=== PATIENT | female | born 1995 | race Caucasian/White ===

== ENCOUNTER 2018-01-05 13:48 | Emergency (ER) | payer MEDICAID, SELFPAY ==
[2018-01-05 13:53] VITALS: BP 147/82; PULSE 107; RESP 18; TEMP 36.2; O2SAT 96; BMI 32.5
--- NOTE | 2018-01-05 14:05 | RAD_ITS ---
STUDY: X-RAY CHEST REASON FOR EXAM: Female, 22 years old. Cough. TECHNIQUE: Frontal and lateral views of the chest. COMPARISON: None. FINDINGS: The lungs are clear and expanded. There is no demonstrated pleural abnormality. Normal size heart. Normal mediastinum and aylin. Normal visualized pulmonary arteries. Normal visualized aortic arch and descending thoracic aorta. Meraz arpit placement is present. There are bilateral nipple rings. Normal visualized ribs, clavicles, and shoulders. There is no demonstrated abnormality of the visualized soft tissue structures of the upper abdomen. RAD/Chest PA and Lateral IMPRESSION: No active or acute cardiopulmonary disease. Electronically Signed: Rosendo Lundberg MD at 14:26 EDT , Service support ,
[2018-01-05] MEDS: Naproxen 500 MG Tablet PO (14:29)
[2018-01-05] MEDS: predniSONE 20 MG Tablet 60 MG PO (14:29)
--- NOTE | 2018-01-05 15:07 | ED.DCSUM_ITS ---
- ER Visit Summary Date of Service: 01/05/18 Chief Complaint: Cough History of Present Illness: The patient is a 22 F with no primary care physician. She reports she has a cough began approximately 2 weeks ago. Is nonproductive. No fever or chills. Reports that she has sore throat is 5 out of 10 severity. She has a chest pain with coughing only. She reports that she has had moderate shortness of breath and has been wheezing. She does not have an inhaler, but needed one when she was younger. She reports that she has had similar symptoms about this time every year. She does smoke half pack per day. Physical Examination: Vitals: Stable. Afebrile. General: Well-nourished and well-developed. Head: Normocephalic atraumatic. Neck: Supple, no lymphadenopathy. No JVD. Nontender. Cardiovascular: Regular rate and rhythm. No murmurs. Respiratory: No respiratory distress. Mild wheezing bilaterally with good air movement Abdominal: Soft, nontender, nondistended, normal bowel sounds. No guarding, rebound, or peritoneal signs. Back: Nontender. Extremities: Nontender, no edema. Skin: Normal color, no rash. Neurologic: Alert and oriented ?3. Cranial nerves II through XII are intact. Normal strength and sensation. Psych: Normal affect. Test Results: Chest x-ray is normal Emergency Department Course and Treatment: Patient was treated with naproxen p.o., prednisone p.o., and albuterol MDI. Repeat exam her wheezing is resolved and she feels much improved. Treatment Plan: Patient be discharged on a 5-day burst of prednisone. Instructed to push fluids. Follow-up with the [facility] in 1 week if not improving. Return to the emergency department for any worsening symptoms. Disposition: To home in improved and stable condition. Impression: 1. URI with bronchospasm. 2. Tobacco abuse. This note was generated with [employer] dictation software. It may contain incorrect words, spelling, and punctuation that were not noted in review of the chart prior to signing ED Disposition - Plan for ED Patient: Disposition: Home or Assisted Living Chief Complaint: Cough Instructions: ED Upper Resp Infec No Abx Tx Prescriptions: Prednisone [Deltasone] 40 mg PO DAILY #10 tablet Referrals: [facility] [NON-STAFF] - 1 Week if not improving
[2018-01-05 15:12] VITALS: BP 138/79; PULSE 84; RESP 16; O2SAT 98
--- NOTE | 2018-01-06 11:58 | CM.ED ---
ED CALLBACK: Follow-up call placed to patient. Patient states she is feeling some better. She states she has not filled her prescription yet, but plans to do so today. Patient states she usually gets bronchitis this time of year and if she doesn't treat it quickly it turns into pneumonia. I encouraged the patient to schedule an [facility]. Contact number and address provided, as patient states she can't locate her discharge paperwork. Patient denies further needs or questions at this time.
== END 2018-01-05 15:12 | disposition home or self-care (01) ==
LOC: ED 14:38
PROVIDERS: Emergency Provider Emergency Medicine
DX: J06.9 Acute upper respiratory infection, unspecified (principal); J98.01 Acute bronchospasm; F17.200 Nicotine dependence, unspecified, uncomplicated
CPT/HCPCS: 71046; 99283

== ENCOUNTER 2018-06-02 10:28 | Emergency (ER) | payer MEDICAID, SELFPAY ==
[2018-06-02 10:28] VITALS: BP 145/95; PULSE 103; RESP 18; TEMP 36.3; O2SAT 98; BMI 34.3
--- NOTE | 2018-06-02 11:26 | CT_ITS ---
STUDY: CT BRAIN WITHOUT CONTRAST REASON FOR EXAM: Female, 22 years old. alvarado x 2 wks, d/v, pt refused to remove rt ear piercing RADIATION DOSAGE (If Supplied By Facility): CTDIvol = ( 44.99 ) mGy, DLP = ( 762.36 ) mGycm TECHNIQUE: Transaxial CT imaging of the brain was performed without administration of intravenous contrast material. Individualized dose optimization techniques were used for this CT. COMPARISON: None. FINDINGS: Normal soft tissue structures. Normal calvarium. Normal size ventricles and extra-axial spaces for the patient's age. Normal white matter tracts of the cerebral hemispheres. Normal basal ganglia and thalami. Normal brainstem. Normal cerebellum. There is no intracranial hemorrhage. There are no findings of an acute ischemic infarction. Normal visualized paranasal sinuses. CT/Brain/Head without Contrast IMPRESSION: Normal unenhanced CT scan of the brain. Electronically Signed: Rosanna Robles, at 12:14 EDT Tel , Service support ,
[2018-06-02 11:53] VITALS: BP 134/93; PULSE 78; RESP 16; O2SAT 96
[2018-06-02] MEDS: Ketorolac 30 MG/ML Syringe IV (12:02)
[2018-06-02] MEDS: 0.9% Normal Saline 1,000 ML 999 ML IV (12:02)
[2018-06-02] MEDS: diazePAM 5 MG Tablet PO (12:03)
[2018-06-02 13:19] VITALS: BP 132/87; PULSE 76; RESP 16; O2SAT 98
--- NOTE | 2018-06-02 13:29 | ED.VISSUMM ---
- ER Visit Summary Date of Service: 06/02/18 Chief Complaint: Headache History of Present Illness: The patient is a 22 F who presents emergency department 2 weeks of a headache. Described as pain behind her bilateral eyes and also in her occiput. She also feels that there is a splitting sensation in the center of her head. No weakness or paresthesias. She states that last she began to have vomiting and diarrhea and on Saturday had a temperature of 101. She was seen at [facility] emergency room where she C received a bag of fluids and was felt that it could be a sinusitis headache. She was prescribed amoxicillin but has not taken it. Patient notes the vomiting diarrhea has continued but she states that she can handle that is her head that is hurting her. She does note some light sensitivity. No significant history of migraines. No significant vision changes. Physical Examination: Afebrile vital signs stable Gen: Well-nourished well-developed Head: Normocephalic atraumatic Eyes: Perrl EOMI ENT: TMs clear no rhinorrhea moist mucous membranes Neck: Supple no lymphadenopathy no JVD nontender CVS: Regular rate rhythm no murmurs normal S1-S2 Respiratory: No distress clear to auscultation bilaterally chest nontender Abdomen: Soft nontender nondistended normal bowel sounds no masses Back: Nontender Extremity: Nontender no edema Skin: Normal color no rash Neuro: alert orientated ?3 CN II-XII intact normal strength sensation reflexes gait cerebellar Psych: Normal affect normal mood Test Results: CT brain negative for acute Emergency Department Course and Treatment: Patient received Toradol Valium and IV fluids. She states her headache is at least 40% better. I am going to prescribe additional Toradol and Valium as well as some prednisone she is to establish primary care or follow-up with neurology. Return if worsening or concerns. Impression: Headache This note was generated with [employer] dictation software. It may contain incorrect words, spelling, and punctuation that were not noted in review of the chart prior to signing ED Disposition - Plan for ED Patient: Disposition: Home or Assisted Living Instructions: ED Cephalgia Unspecified Prescriptions: Diazepam [Valium] 5 mg PO Q8 PRN #10 tab PRN Reason: tension headache Prednisone [Deltasone] 40 mg PO DAILY #8 tab Ketorolac [Toradol] 10 mg PO Q6H PRN #20 tab PRN Reason: Pain Referrals: Micheal Rios MD [STAFF PHYSICIAN] - 3-5 Days if not improving
[2018-06-02 13:44] VITALS: BP 125/86; PULSE 68; RESP 16; O2SAT 99
== END 2018-06-02 13:45 | disposition home or self-care (01) ==
PROVIDERS: Emergency Provider Emergency Medicine
DX: R51 Headache (principal); Z72.0 Tobacco use
CPT/HCPCS: 70450; 96361; 96374; 99283; J7030; A4216

== ENCOUNTER 2018-07-12 01:52 | Emergency (ER) | payer MEDICAID, SELFPAY ==
[2018-07-12 01:52] VITALS: BP 135/88; PULSE 105; RESP 16; TEMP 36.4; O2SAT 98; BMI 35.4
--- NOTE | 2018-07-12 02:02 | RAD_ITS ---
STUDY: X-RAY CHEST REASON FOR EXAM: Female, 22 years old. Cough TECHNIQUE: Single frontal view of the chest. COMPARISON: January 05, 2018. FINDINGS: The lungs are clear and expanded. There is no demonstrated pleural abnormality. Normal size heart. Normal mediastinum and aylin. Normal visualized pulmonary arteries. Normal visualized aortic arch and descending thoracic aorta. Scoliotic curvature to the spine with spinal fixation rods. Normal visualized ribs, clavicles, and shoulders. There is no demonstrated abnormality of the visualized soft tissue structures of the upper abdomen. RAD/Chest 1 View (Portable) IMPRESSION: No acute cardiopulmonary disease identified. Electronically Signed: Maged Gonsalez, at 2:40 EDT Tel , Service support ,
[2018-07-12] MEDS: Mag Hydrox/Al Hydrox/Simeth 30 ML UDC PO (02:12)
[2018-07-12] MEDS: Famotidine 20 MG Tablet 40 MG PO (02:12)
[2018-07-12] MEDS: 0.9% Normal Saline 1,000 ML 1000 ML IV (02:14)
[2018-07-12 02:39] LABS: Absolute Lymphocyte Count 3.57 X10^3/ul (0.83-4.51); Absolute Neutrophil Count 11.2 X10^3/uL (2.0-7.7); Basophil# 0.06 X10^3/uL; Basophil% 0.4 % (0-1); Eosinophil# 0.35 X10^3/uL; Eosinophils% 2.1 % (0-5); Hematocrit 41.7 % (37-47); Hemoglobin 14.2 g/dl (12.0-15.0); Lymphocyte # 3.57 X10^3/ul (4.0); Lymphocyte % 21.5 % (19-41); Mean Corp Hgb Conc 34.1 g/gl (32-36); Mean Corpuscular Hgb 30.6 pg (27.0-32.0); Mean Corpuscular Volume 89.9 fL (81-99); Monocyte# 1.33 X10^3/uL; Neutrophil # 11.23 X10^3/uL (2.7-7.7); Neutrophil % 67.8 % (47-70); Platelet Count 250 K/mm3 (150-450); RBC Distribution Width SD 42.7 fl (35.1-43.9); Red Blood Count 4.64 M/mm3 (4.2-5.4); White Blood Count 16.6 K/mm3 (4.4-11.0)
[2018-07-12 02:41] LABS: Differential Indicated SCAN CRITERIA MET; POSITIVE COUNT NO; POSITIVE DIFFERENTIAL NO; POSITIVE MORPHOLOGY YES
[2018-07-12 02:43] LABS: Internal QC Validated? YES +Cl - CLEAR BKGD
[2018-07-12 02:45] LABS: Pregnancy, Serum, hCG Quali. NEGATIVE Negative
[2018-07-12 02:53] LABS: ALB/GLOB Ratio 0.9 RATIO (0.9-2.4); AST(SGOT) 13 U/L (15-37); Alanine Aminotransfer ALT/SGPT 22 U/L (13-56); Albumin, Serum 3.4 g/dL (3.2-5.0); Alkaline Phosphatase 74 U/L (45-117); Anion Gap 6 (5-15); BUN 10 mg/dL (7-18); BUN/Creat Ratio 7.8 RATIO (10-20); Calcium,Total 8.6 mg/dL (8.5-10.1); Chloride 106 mmol/L (98-107); Creatinine, Serum 1.28 mg/dL (0.55-1.02); EST Glomerular Filtration Rate 56 mL/min (>60); Est Glom Filt Rate - Afr Amer 68 mL/min (>60); Estimated Creatinine Clearance 60.54 ml/min; Globulin 3.7 g/dL (2.2-4.2); Glucose 85 mg/dL (74-106); Lipase 90 U/L (73-393); Potassium 4.1 mmol/L (3.5-5.1); Protein, Total 7.1 g/dL (6.4-8.2); Sodium Level 138 mmol/L (136-145)
--- NOTE | 2018-07-12 03:25 | ED.DCSUM_ITS ---
- ER Visit Summary Date of Service: 07/12/18 Chief Complaint: Abdominal pain History of Present Illness: The patient is a 22 F with no primary care physician. She reports that she has abdominal pain and begin 4 days ago. It is a continuous heartburn that is 10 out of 10 in severity. It is worsened by f ood. She taken antacids without relief. She is had nausea without vomiting. No diarrhea. Last bowel was today. She has had no melena or hematochezia. No dysuria frequency. Last much previous 4 weeks ago. Patient denies any history of fatty food intolerance. She does have a history of intolerance to tomato sauces and spicy food. On review of systems patient reports she has a cough that began approximate 1 week ago that is productive green sputum. Physical Examination: Vitals: Stable. Afebrile. General: Well-nourished and well-developed. Head: Normocephalic atraumatic. Neck: Supple, no lymphadenopathy. No JVD. Nontender. Cardiovascular: Regular rate and rhythm. No murmurs. Respiratory: No respiratory distress. Clear to auscultation bilaterally. Abdominal: Soft, mild epigastric tenderness to palpation, nondistended, normal bowel sounds. No guarding, rebound, or peritoneal signs. Back: Nontender. Extremities: Nontender, no edema. Skin: Normal color, no rash. Neurologic: Alert and oriented ?3. Cranial nerves II through XII are intact. Normal strength and sensation. Psych: Normal affect. Test Results: CBC is remarkable for a white count of 16.6. Chem-7 shows a creatinine 1.28. LFTs show an AST of 13. Lipase is normal. test is negative. Chest x-ray shows no acute disease. Emergency Department Course and Treatment: Patient was treated with a GI cocktail and Pepcid. She has had significant relief. She is resting comfortably. Treatment Plan: Patient will be discharged with Zantac. Instructed to follow-up with a [facility] in 1 week if not improving. Return to the emergency department for any worsening symptoms. Disposition: To home in improved and stable condition. Impression: 1. Epigastric pain. This note was generated with [employer] software. It may contain incorrect words, spelling, and punctuation that were not noted in review of the chart prior to signing ED Disposition - Plan for ED Patient: Disposition: Home or Assisted Living Instructions: ED PUD Vs Gastritis Prescriptions: Ranitidine [Zantac] 300 mg PO DAILY #30 tablet Referrals: [facility] [NON-STAFF] - 1 Week if not improving
[2018-07-12 04:14] VITALS: BP 107/81; PULSE 96; RESP 18; O2SAT 97
== END 2018-07-12 04:15 | disposition home or self-care (01) ==
PROVIDERS: Emergency Provider Emergency Medicine
DX: R10.13 Epigastric pain (principal); J45.909 Unspecified asthma, uncomplicated; Z72.0 Tobacco use
CPT/HCPCS: 71045; 80053; 83690; 84703; 85025; 96360; 99284; J7030; A4216

== ENCOUNTER 2018-07-20 19:30 | Emergency (ER) | payer MEDICAID, SELFPAY ==
[2018-07-20 19:31] VITALS: BP 155/87; PULSE 116; RESP 15; TEMP 36.9; BMI 34.3
--- NOTE | 2018-07-20 19:52 | CT_ITS ---
HISTORY: WOKE UP WITH LEFT SIDE HIP PAIN RADIATES TO LEFT RIB AREA POSTERIOR, HX RODS FOR SCOLIOSIS EXAMINATION: CT Abdomen And Pelvis W/O Contrast TECHNIQUE: Helically acquired images were obtained of the abdomen and pelvis without oral or IV contrast as per renal stone protocol. A radiation dose optimization technique was used for this scan. IV Contrast dosage and agent: None. Oral contrast: None. COMPARISON: None FINDINGS: LOWER CHEST: Lung bases are clear. No cardiomegaly or pericardial effusion observed. LIVER: Homogeneous. No focal mass. GALLBLADDER AND BILIARY TREE: No calcified gallstones. There is no gallbladder distension or wall edema. No intra- or extrahepatic biliary ductal dilation. KIDNEYS AND URETERS: 2 punctate nonobstructing stones upper pole left kidney. Right kidney, ureters unremarkable. ADRENAL GLANDS: Non-enlarged. SPLEEN: Normal size without focal cystic or solid mass. PANCREAS: No focal cystic or solid mass. BOWEL: Normal appendix. No stomach or bowel distension. No focal inflammatory change observed. LYMPH NODES: No enlarged mesenteric or retroperitoneal lymph nodes. PERITONEUM: Trace fluid in the pelvis within physiologic limits. No free air. VESSELS: Aorta is non-dilated. URINARY BLADDER: Unremarkable. REPRODUCTIVE ORGANS: 4.3 cm diameter right ovarian cyst. Uterus and left ovary normal. Tampon in the vagina. ABDOMINAL WALL: No discrete abdominal or pelvic wall hernia observed. BONES: No acute osseous abnormality. Thoracolumbar fusion hardware partially visible extends to L1. Mild S-shaped scoliosis. CT/Abdomen/Pelvis without Cont IMPRESSION: 4.3 cm right ovarian cyst. This is physiologic but might cause right pelvic pain. No other acute findings. Individualized dose optimization techniques were used for this CT. at [id number] Reported and signed by: Zackery Kuhn MD Electronically Signed: Zackery Kuhn, at 21:25 EDT Tel , Service support ,
--- NOTE | 2018-07-20 19:53 | ED.VIS.GEN ---
History of Present Illness Chief Complaint: Other, Pain/Inj Informant: Patient Onset: Today Narrative: Waxing and waning left flank pain after awakening at 8:30 AM this morning. Pain radiates to her left hip and groin region. Nausea without vomiting. History of kidney stones when she was younger however states it does not feel similar. Denies trauma. States has urine frequency. Currently on menstrual period. No bowel movement today. History of scoliosis with surgery in the past. Reports that her L1 screw was broken in the past. No loss of bowel or bladder control. States pain also radiates to the left anterior thigh. There is no weakness. No fevers. no history of gastric ulcers or kidney injury. Prior similar symptoms: No Past Medical History - Allergies and Home Meds Allergies/Adverse Reactions: Allergies tramadol Allergy (Verified 07/20/18 19:35) Anaphylaxis Primary Care Physician: Care Physician,No Primary [Primary Care Provider] - Smoking Status: Current every day smoker Review of Systems General: Denies: Chills, Fever, Sweats Eyes: Denies: Visual changes - bilaterally, Diplopia ENT: Denies: Rhinorrhea, Sore throat Cardiovascular: Denies: Chest pain, Palpitations Respiratory: Denies: Dyspnea, Cough, Dyspnea on exertion Gastrointestinal: Reports: Nausea Genitourinary: Reports: Frequency. Denies: Dysuria, Hematuria Musculoskeletal: Reports: Back pain Skin: Denies: Rash, Wounds Neurological: Denies: Headache, Weakness, Numbness Physical Exam Vital Signs/Narrative: Vital Signs Temp Pulse Resp BP 07/20/18 19:31 98.4 F 116 H 15 155/87 H Inital Vital Signs reviewed: Yes General: Well nourished, Well developed, No Acute Distress Head: Normocephalic, Atraumatic Eyes: Perrl, EOMI ENT: Moist mucous membranes, No rhinorrhea Neck: Supple, Nontender Cardiovascular: Regular rate, Regular rhythm, No murmurs, Tachycardia Respiratory: No distress, CTA bilaterally, Chest nontender Abdomen: Soft, Nontender, Nondistended, Normal bowel sounds Back: Nontender, Normal Inspection, CVA tenderness, - - Left CVA tenderness with no rash. No midline tenderness or erythema. Straight leg test negative bilaterally. 1+ patellar reflex bilaterally. Extremities: Nontender, No edema Skin: Normal color, No rash Neurological: Alert, Oriented x3, Cranial nerves II-XII grossly intact, Normal Strength, Normal Sensation Psychological: Normal affect, Normal Mood Diagnostic/Tx/Re-eval Abnormal Lab Results 07/20/18 07/20/18 07/20/18 20:00 20:00 20:00 WBC 12.1 H RBC 4.71 Hgb 14.6 Hct 42.2 MCV 89.6 MCH 31.0 MCHC 34.6 RDW 13.1 RDW Differential 43.2 Plt Count 235 MPV 10.4 Immature Gran % (Auto) 0.300 Neut % (Auto) 74.9 H Lymph % (Auto) 16.0 L Morton % (Auto) 7.4 Eos % (Auto) 1.2 Baso % (Auto) 0.2 Absolute Neuts (auto) 9.1 H Absolute Lymphs (auto) 1.94 Total Counted Not Reportable Sodium 135 L Potassium 3.8 Chloride 104 Carbon Dioxide 25.0 Anion Gap 6 BUN 14 Creatinine 0.87 Estim Creat Clear Calc 89.07 Est GFR (MDRD) Af Amer 106 Est GFR (MDRD) Non-Af 87 BUN/Creatinine Ratio 16.1 Glucose 89 Calcium 8.5 Serum , Qual NEGATIVE Urine Color Urine Clarity Urine pH Ur Specific Gardner Urine Protein Urine Glucose (UA) Urine Ketones Urine Occult Blood Urine Nitrite Urine Bilirubin Urine Urobilinogen Ur Leukocyte Esterase Urine RBC Urine WBC Ur Squamous Epith Cells Urine Bacteria Urine Mucus 07/20/18 20:11 WBC RBC Hgb Hct MCV MCH MCHC RDW RDW Differential Plt Count MPV Immature Gran % (Auto) Neut % (Auto) Lymph % (Auto) Morton % (Auto) Eos % (Auto) Baso % (Auto) Absolute Neuts (auto) Absolute Lymphs (auto) Total Counted Sodium Potassium Chloride Carbon Dioxide Anion Gap BUN Creatinine Estim Creat Clear Calc Est GFR (MDRD) Af Amer Est GFR (MDRD) Non-Af BUN/Creatinine Ratio Glucose Calcium Serum , Qual Urine Color Yellow Urine Clarity Clear Urine pH 7.0 Ur Specific Gardner 1.010 Urine Protein 15 H Urine Glucose (UA) Normal Urine Ketones Negative Urine Occult Blood 250 H Urine Nitrite Negative Urine Bilirubin Negative Urine Urobilinogen Normal Ur Leukocyte Esterase 25 H Urine RBC 25-50 SEEN Urine WBC 0-5 SEEN Ur Squamous Epith Cells 0-5 SEEN Urine Bacteria RARE Urine Mucus [address] abdomen pelvis: Nephrolithiasis on the left with no urolithiasis. Normal appendix. No acute process per radiology. - Medical Decision Making Patient nontoxic pain radiating. Renal stone protocol initiated. Treated with morphine Toradol and fluids along with Zofran. Symptoms are improving. Urine noted blood however she is also on her menstrual period. Leukocytes with no other acute findings. CT scan with no acute process per radiology. On close evaluation, there was noted L1 screw fracture for which patient reported. She reports due to changing of age to 20, she was unable to see [facility]. She states she is trying to go through [facility] at this time, discussed she can get a referral from them. She was treated for renal colic flank pain. She is tolerated [place] in the past. Prescription for this and time medics. She will continue Motrin. All questions were answered. ED Disposition - Plan for ED Patient: Disposition: Home or Assisted Living Diagnosis: Left flank pain Instructions: ED Flank Pain Uncertain Cause Prescriptions: Hydrocodone Bitart/Apap 5-325 [[place] 5MG-325MG] 1 tablet PO Q6H PRN PRN 3 Days #12 tablet PRN Reason: Pain Ondansetron [Zofran Odt] 4 mg PO Q8H PRN PRN #10 tablet PRN Reason: Nausea Referrals: Care Physician,No Primary [Primary Care Provider] - Additional Instructions: There was noted L1 left screw fracture on CT. No obstructive uropathy. Call your [facility] follow-up for referral.
--- NOTE | 2018-07-20 19:56 | ED.DCSUM_ITS ---
History of Present Illness Chief Complaint: Other, Pain/Inj Informant: Patient Onset: Today Narrative: Waxing and waning left flank pain after awakening at 8:30 AM this morning. Pain radiates to her left hip and groin region. Nausea without vomiting. History of kidney stones when she was younger however states it does not feel similar. Denies trauma. States has urine frequency. Currently on menstrual period. No bowel movement today. History of scoliosis with surgery in the past. Reports that her L1 screw was broken in the past. No loss of bowel or bladder control. States pain also radiates to the left anterior thigh. There is no weakness. No fevers. no history of gastric ulcers or kidney injury. Prior similar symptoms: No Past Medical History - Allergies and Home Meds Allergies/Adverse Reactions: Allergies tramadol Allergy (Verified 07/20/18 19:35) Anaphylaxis Primary Care Physician: Care Physician,No Primary [Primary Care Provider] - Smoking Status: Current every day smoker Review of Systems General: Denies: Chills, Fever, Sweats Eyes: Denies: Visual changes - bilaterally, Diplopia ENT: Denies: Rhinorrhea, Sore throat Cardiovascular: Denies: Chest pain, Palpitations Respiratory: Denies: Dyspnea, Cough, Dyspnea on exertion Gastrointestinal: Reports: Nausea Genitourinary: Reports: Frequency. Denies: Dysuria, Hematuria Musculoskeletal: Reports: Back pain Skin: Denies: Rash, Wounds Neurological: Denies: Headache, Weakness, Numbness Physical Exam Vital Signs/Narrative: Vital Signs Temp Pulse Resp BP 07/20/18 19:31 98.4 F 116 H 15 155/87 H Inital Vital Signs reviewed: Yes General: Well nourished, Well developed, No Acute Distress Head: Normocephalic, Atraumatic Eyes: Perrl, EOMI ENT: Moist mucous membranes, No rhinorrhea Neck: Supple, Nontender Cardiovascular: Regular rate, Regular rhythm, No murmurs, Tachycardia Respiratory: No distress, CTA bilaterally, Chest nontender Abdomen: Soft, Nontender, Nondistended, Normal bowel sounds Back: Nontender, Normal Inspection, CVA tenderness, - - Left CVA tenderness with no rash. No midline tenderness or erythema. Straight leg test negative bilater ally. 1+ patellar reflex bilaterally. Extremities: Nontender, No edema Skin: Normal color, No rash Neurological: Alert, Oriented x3, Cranial nerves II-XII grossly intact, Normal Strength, Normal Sensation Psychological: Normal affect, Normal Mood Diagnostic/Tx/Re-eval Abnormal Lab Results 07/20/18 07/20/18 07/20/18 20:00 20:00 20:00 WBC 12.1 H RBC 4.71 Hgb 14.6 Hct 42.2 MCV 89.6 MCH 31.0 MCHC 34.6 RDW 13.1 RDW Differential 43.2 Plt Count 235 MPV 10.4 Immature Gran % (Auto) 0.300 Neut % (Auto) 74.9 H Lymph % (Auto) 16.0 L Stewart % (Auto) 7.4 Eos % (Auto) 1.2 Baso % (Auto) 0.2 Absolute Neuts (auto) 9.1 H Absolute Lymphs (auto) 1.94 Total Counted Not Reportable Sodium 135 L Potassium 3.8 Chloride 104 Carbon Dioxide 25.0 Anion Gap 6 BUN 14 Creatinine 0.87 Estim Creat Clear Calc 89.07 Est GFR (MDRD) Af Amer 106 Est GFR (MDRD) Non-Af 87 BUN/Creatinine Ratio 16.1 Glucose 89 Calcium 8.5 Serum , Qual NEGATIVE Urine Color Urine Clarity Urine pH Ur Specific Perry Urine Protein Urine Glucose (UA) Urine Ketones Urine Occult Blood Urine Nitrite Urine Bilirubin Urine Urobilinogen Ur Leukocyte Esterase Urine RBC Urine WBC Ur Squamous Epith Cells Urine Bacteria Urine Mucus 07/20/18 20:11 WBC RBC Hgb Hct MCV MCH MCHC RDW RDW Differential Plt Count MPV Immature Gran % (Auto) Neut % (Auto) Lymph % (Auto) Stewart % (Auto) Eos % (Auto) Baso % (Auto) Absolute Neuts (auto) Absolute Lymphs (auto) Total Counted Sodium Potassium Chloride Carbon Dioxide Anion Gap BUN Creatinine Estim Creat Clear Calc Est GFR (MDRD) Af Amer Est GFR (MDRD) Non-Af BUN/Creatinine Ratio Glucose Calcium Serum , Qual Urine Color Yellow Urine Clarity Clear Urine pH 7.0 Ur Specific Perry 1.010 Urine Protein 15 H Urine Glucose (UA) Normal Urine Ketones Negative Urine Occult Blood 250 H Urine Nitrite Negative Urine Bilirubin Negative Urine Urobilinogen Normal Ur Leukocyte Esterase 25 H Urine RBC 25-50 SEEN Urine WBC 0-5 SEEN Ur Squamous Epith Cells 0-5 SEEN Urine Bacteria RARE Urine Mucus [address] abdomen pelvis: Nephrolithiasis on the left with no urolithiasis. Normal appendix. No acute process per radiology. - Medical Decision Making Patient nontoxic pain radiating. Renal stone protocol initiated. Treated with morphine Toradol and fluids along with Zofran. Symptoms are improving. Urine noted blood however she is also on her menstrual period. Leukocytes with no other acute findings. CT scan with no acute process per radiology. On close evaluation, there was noted L1 screw fracture for which patient reported. She reports due to changing of age to 20, she was unable to see [facility] neurosur[facility]. She states she is trying to go through [facility] at this time, discussed she can get a referral from them. She was treated for renal colic flank pain. She is tolerated [place] in the past. Prescription for this and time medics. She will continue Motrin. All questions were answered. ED Disposition - Plan for ED Patient: Disposition: Home or Assisted Living Diagnosis: Left flank pain Instructions: ED Flank Pain Uncertain Cause Prescriptions: Hydrocodone Bitart/Apap 5-325 [[place] 5MG-325MG] 1 tablet PO Q6H PRN PRN 3 Days #12 tablet PRN Reason: Pain Ondansetron [Zofran Odt] 4 mg PO Q8H PRN PRN #10 tablet PRN Reason: Nausea Referrals: Care Physician,No Primary [Primary Care Provider] - Additional Instructions: There was noted L1 left screw fracture on CT. No obstructive uropathy. Call your [facility] follow-up for referral.
[2018-07-20] MEDS: Ketorolac 30 MG/ML Syringe IV (20:02)
[2018-07-20] MEDS: Morphine 4 MG/ML Syringe IV (20:02)
[2018-07-20] MEDS: Ondansetron 4 MG/2 ML Vial IV (20:02)
[2018-07-20] MEDS: 0.9% Normal Saline 1,000 ML 250 ML IV (20:02)
[2018-07-20 20:31] LABS: Mucous, Urine 0 SEEN /hpf (<or=2+)
[2018-07-20 20:34] LABS: Absolute Lymphocyte Count 1.94 X10^3/ul (0.83-4.51); Absolute Neutrophil Count 9.1 X10^3/uL (2.0-7.7); Basophil# 0.02 X10^3/uL; Basophil% 0.2 % (0-1); Eosinophil# 0.14 X10^3/uL; Eosinophils% 1.2 % (0-5); Hematocrit 42.2 % (37-47); Hemoglobin 14.6 g/dl (12.0-15.0); Lymphocyte # 1.94 X10^3/ul (4.0); Mean Corp Hgb Conc 34.6 g/gl (32-36); Mean Corpuscular Volume 89.6 fL (81-99); Mean Platelet Vol. 10.4 fl (6.2-12.0); Monocyte# 0.89 X10^3/uL; Monocyte% 7.4 % (0-10); Neutrophil # 9.06 X10^3/uL (2.7-7.7); Neutrophil % 74.9 % (47-70); Platelet Count 235 K/mm3 (150-450); RBC Distribution Width CV 13.1 % (11.6-14.6); RBC Distribution Width SD 43.2 fl (35.1-43.9); Red Blood Count 4.71 M/mm3 (4.2-5.4); White Blood Count 12.1 K/mm3 (4.4-11.0)
[2018-07-20 20:35] LABS: Color, Urine Yellow (Yellow); Glucose, Dipstick Normal (Normal); Ketone-Dipstick Negative (Negative); Leukocyte Esterase-Dipstick 25 /ul (Negative); Nitrite-Dipstick Negative (Negative); Occult Blood-Urine 250 /ul (Negative); Protein-Dipstick 15 mg/dl (Negative); Urine Bilirubin Dipstick Negative (Negative); Urine Clarity Clear (Clear); Urine Urobilinogen Normal (Normal)
[2018-07-20 20:36] LABS: POSITIVE COUNT NO; POSITIVE DIFFERENTIAL NO; POSITIVE MORPHOLOGY NO
[2018-07-20 20:39] LABS: Internal QC Validated? YES +Cl - CLEAR BKGD; Pregnancy, Serum, hCG Quali. NEGATIVE Negative
[2018-07-20 20:44] LABS: BUN 14 mg/dL (7-18); Creatinine, Serum 0.87 mg/dL (0.55-1.02); Estimated Creatinine Clearance 89.07 ml/min; Glucose 89 mg/dL (74-106)
[2018-07-20 20:45] LABS: Anion Gap 6 (5-15); BUN/Creat Ratio 16.1 RATIO (10-20); Calcium,Total 8.5 mg/dL (8.5-10.1); Chloride 104 mmol/L (98-107); EST Glomerular Filtration Rate 87 mL/min (>60); Est Glom Filt Rate - Afr Amer 106 mL/min (>60); Potassium 3.8 mmol/L (3.5-5.1); Sodium Level 135 mmol/L (136-145)
[2018-07-20 21:02] LABS: Red Blood Cells-Urine 25-50 SEEN /hpf (0-5); Squamous Epithelial Cells - UA 0-5 SEEN /hpf (5-10); White Blood Cells 0-5 SEEN /hpf (0-5)
[2018-07-20 21:03] LABS: Bacteria RARE /hpf (None Seen)
[2018-07-20 22:02] VITALS: BP 145/90; PULSE 95; RESP 17; O2SAT 98
== END 2018-07-20 22:12 | disposition home or self-care (01) ==
PROVIDERS: Emergency Provider Emergency Medicine
DX: R10.9 Unspecified abdominal pain (principal); F17.200 Nicotine dependence, unspecified, uncomplicated; Z87.442 Personal history of urinary calculi
CPT/HCPCS: 74176; 80048; 81001; 84703; 85025; 96361; 96374; 96375; 99283; J7030; A4216; J2405

== ENCOUNTER 2018-07-21 22:58 | Emergency (ER) | payer MEDICAID, SELFPAY ==
[2018-07-20 19:31] VITALS: BMI 34.3
[2018-07-21 22:58] VITALS: BP 123/71; PULSE 128; RESP 18; TEMP 36.3; O2SAT 95; BMI 35.9
--- NOTE | 2018-07-21 23:24 | EKG12_ITS ---
Test Reason : ABD PAIN Blood Pressure : / mmHG Vent. Rate : 111 BPM Atrial Rate : 111 BPM P-R Int : 154 ms QRS Dur : 078 ms QT Int : 306 ms P-R-T Axes : 052 086 044 degrees QTc Int : 416 ms Sinus tachycardia Otherwise normal ECG Confirmed by JADA OLIVERA ([id number]), assignment editor DELON ORTA ([id number]) on 07/25/2018 11:09:51 AM Referred By: ADRIAN Confirmed By:JADA OLIVERA
--- NOTE | 2018-07-21 23:24 | RAD_ITS ---
STUDY: X-RAY CHEST REASON FOR EXAM: Female, 22 years old. Nausea and chest pain. TECHNIQUE: PA and lateral views of the chest. COMPARISON: July 12, 2018 FINDINGS: Incidental note is made of bilateral nipple piercings. The lungs are mildly under expanded with prominence of bronchovascular markings. There is no demonstrated pleural abnormality. Normal size heart. Normal mediastinum and aylin. Normal visualized pulmonary arteries. Normal visualized aortic arch and descending thoracic aorta. Patient has had extensive surgery on the thoracic spine probably for straightening of the scoliosis. Multiple intrapedicular screws and rods are visible. There is minimal residual curvature of the thoracic spine. Normal visualized ribs, clavicles, and shoulders. There is no demonstrated abnormality of the visualized soft tissue structures of the upper abdomen. RAD/Chest PA and Lateral IMPRESSION: No radiographic evidence of acute cardiopulmonary disease. Electronically Signed: Vannessa Brownlee MD at 0:29 EDT , Service support ,
--- NOTE | 2018-07-21 23:25 | RAD_ITS ---
STUDY: X-RAY - PELVIS AND LEFT HIP REASON FOR EXAM: Female, 22 years old. Left-sided hip pain. TECHNIQUE: 3 views of the pelvis and hip. COMPARISON: CT of abdomen and pelvis dated July 20, 2018. FINDINGS: There is a non-specific bowel gas pattern. Normal visualized soft tissue structures. The sacrum is obscured by bowel gas and stool. Normal bilateral superior and inferior pubic rami. Normal pubic symphysis. Normal bilateral ischial tuberosities. Normal visualized femoral head. Normal acetabulum. Normal hip joint. RAD/HIP, UNI W/ Pelvis 2-3 Views IMPRESSION: No radiographic evidence for acute fracture. Electronically Signed: Vannessa Brownlee MD at 0:27 EDT , Service support ,
--- NOTE | 2018-07-21 23:30 | ED.RN ---
NO OLD EKGS IN MUSE
[2018-07-21] MEDS: 0.9% Normal Saline 1,000 ML 999 ML IV (23:41)
[2018-07-21] MEDS: proCHLORPERazine 10 MG/2 ML Vial IV (23:41)
[2018-07-21] MEDS: Ketorolac 30 MG/ML Syringe IV (23:42)
[2018-07-21] MEDS: DiphenhydrAMINE 50 MG/ML Syringe 25 MG IV (23:42)
[2018-07-21 23:50] LABS: Absolute Lymphocyte Count 1.77 X10^3/ul (0.83-4.51); Absolute Neutrophil Count 15.5 X10^3/uL (2.0-7.7); Basophil# 0.02 X10^3/uL; Basophil% 0.1 % (0-1); Eosinophil# 0.01 X10^3/uL; Eosinophils% 0.1 % (0-5); Hematocrit 40.6 % (37-47); Hemoglobin 13.7 g/dl (12.0-15.0); Lymphocyte # 1.77 X10^3/ul (4.0); Mean Corp Hgb Conc 33.7 g/gl (32-36); Mean Corpuscular Hgb 30.2 pg (27.0-32.0); Mean Corpuscular Volume 89.4 fL (81-99); Mean Platelet Vol. 10.5 fl (6.2-12.0); Monocyte% 11.7 % (0-10); Neutrophil # 15.54 X10^3/uL (2.7-7.7); Neutrophil % 78.6 % (47-70); Platelet Count 199 K/mm3 (150-450); RBC Distribution Width CV 13.1 % (11.6-14.6); RBC Distribution Width SD 42.6 fl (35.1-43.9); Red Blood Count 4.54 M/mm3 (4.2-5.4); White Blood Count 19.7 K/mm3 (4.4-11.0)
[2018-07-21 23:51] LABS: Differential Indicated SCAN CRITERIA MET; POSITIVE COUNT NO; POSITIVE DIFFERENTIAL YES; POSITIVE MORPHOLOGY YES
[2018-07-21 23:56] LABS: ALB/GLOB Ratio 0.7 RATIO (0.9-2.4); AST(SGOT) 20 U/L (15-37); Alanine Aminotransfer ALT/SGPT 23 U/L (13-56); Albumin, Serum 2.9 g/dL (3.2-5.0); Alkaline Phosphatase 84 U/L (45-117); Anion Gap 10 (5-15); BUN 11 mg/dL (7-18); BUN/Creat Ratio 10.9 RATIO (10-20); Calcium,Total 8.7 mg/dL (8.5-10.1); Chloride 100 mmol/L (98-107); Creatinine, Serum 1.01 mg/dL (0.55-1.02); EST Glomerular Filtration Rate 74 mL/min (>60); Est Glom Filt Rate - Afr Amer 89 mL/min (>60); Estimated Creatinine Clearance 76.72 ml/min; Globulin 4.2 g/dL (2.2-4.2); Glucose 110 mg/dL (74-106); Lipase 46 U/L (73-393); Protein, Total 7.1 g/dL (6.4-8.2); Sodium Level 135 mmol/L (136-145)
[2018-07-22 01:00] VITALS: BP 105/70; PULSE 101; RESP 18; O2SAT 97
[2018-07-22 01:25] LABS: Lactic Acid 0.8 mmol/L (0.4-2.0)
--- NOTE | 2018-07-22 01:47 | ED.DEP ---
ED Disposition - Plan for ED Patient: Instructions: ED Abdominal Pain Unkn Cause Referrals: Care Physician,No Primary [Primary Care Provider] - Micheal Rios MD [STAFF PHYSICIAN] - Additional Instructions: h your regular doctor as soon as possible. He should return for any new or worsening symptoms.Today for worsening abdominal pain as well as headache and shortness of breath. Your white blood cell count has significantly increased since her visit yesterday. We recommended hospitalization. You did elect to leave AGAINST MEDICAL ADVICE. You should follow-up as an outpatient as soon as possible. You are welcome to return for reevaluation at any time and I would certainly encourage you to do so for any new or worsening symptoms.
[2018-07-22 02:11] VITALS: BP 86/55; PULSE 79; RESP 14; O2SAT 99
--- NOTE | 2018-07-22 02:27 | ED.VISSUMM ---
- ER Visit Summary Date of Service: 07/22/18 Chief Complaint: Abdominal pain History of Present Illness: The patient is a 22 F who presents with abdominal pain. She was seen yesterday for flank pain. She actually describes pain from her left upper abdomen/flank all the way down to her knee. She also is having some numbness in her hip and thigh. Today she complains of abdominal pain diffusely through her stomach which she describes as cramping. She also complains of nausea without vomiting. She complains of headache, sore throat, shortness of breath. She also complains of feeling lightheaded. No chest pain. No fever or cough. Physical Examination: Afebrile heart rate 128 Moist mucous membranes Heart regular rhythm tachycardia Lungs are clear Abdomen soft nondistended she has diffuse nonfocal abdominal tenderness without guarding without rebound Patient has some tenderness with range of motion of the left hip Alert no focal or lateralizing neurological deficits Test Results: EKG shows sinus tachycardia at a rate of 111. Labs are notable for white blood cell count 19.7. Hepatic function lipase normal. Lactic acid normal. Blood and urine cultures were sent. Two-view chest x-ray shows no acute disease. Hip x-ray shows no fracture. Emergency Department Course and Treatment: Patient was symptomatically treated with fluids, Toradol, Compazine, Benadryl. She actually feels much better on reevaluation. However I am concerned about her leukocytosis and tachycardia. At this point is when I added on cultures and lactic acid which was normal. Patient was empirically given IV Zosyn. She does meet systemic inflammatory response syndrome criteria, sepsis is considered although there is no clear focal infectious source and she is afebrile. I did recommend hospitalization for further monitoring and work-up. The patient refuses. I discussed the possibility of sepsis and potential complications including worsening of condition, organ failure, . Patient vocalized understanding and wishes to leave AGAINST MEDICAL ADVICE. She understands she is welcome to return at any time for reevaluation and I encouraged her to do so certainly if she develops any new or worsening symptoms. Her visitor is with her and states he will bring her back if there is any worsening. Patient discharged AGAINST MEDICAL ADVICE Treatment Plan: [] Disposition: Discharged AGAINST MEDICAL ADVICE Impression: Sirs Abdominal pain This note was generated with Strobeation software. It may contain incorrect words, spelling, and punctuation that were not noted in review of the chart prior to signing ED Disposition - Plan for ED Patient: Disposition: Home or Assisted Living Instructions: ED Abdominal Pain Unkn Cause Referrals: Micheal Rios MD [STAFF PHYSICIAN] - Care Physician,No Primary [Primary Care Provider] - Additional Instructions: h your regular doctor as soon as possible. He should return for any new or worsening symptoms.Today for worsening abdominal pain as well as headache and shortness of breath. Your white blood cell count has significantly increased since her visit yesterday. We recommended hospitalization. You did elect to leave AGAINST MEDICAL ADVICE. You should follow-up as an outpatient as soon as possible. You are welcome to return for reevaluation at any time and I would certainly encourage you to do so for any new or worsening symptoms.
[2018-07-22 15:25] LABS: Pathologist Review Reviewed
== END 2018-07-22 02:12 | disposition home or self-care (01) ==
PROVIDERS: Emergency Provider Emergency Medicine
DX: R10.84 Generalized abdominal pain (principal); R65.10 Systemic inflammatory response syndrome (SIRS) of non-infectious origin without acute organ dysfunction
CPT/HCPCS: 36415; 71046; 73502; 80053; 83605; 83690; 85025; 87040; 87086; 87088; 87186; 93005; 96361; 96365; 96375; 99283; J7030; A4216

== ENCOUNTER 2018-07-25 00:05 | Emergency (ER) | payer MEDICAID, SELFPAY ==
[2018-07-25 00:06] VITALS: BP 135/87; PULSE 99; RESP 18; TEMP 36.7; O2SAT 95; BMI 34.5
--- NOTE | 2018-07-25 01:02 | ED.VIS.GEN ---
History of Present Illness Chief Complaint: General Illness Informant: Patient Narrative: Stated she is had on and off flank pain for last several days. She is had 2 ER visits. Comes in for persistent flank pain. Denies any urinary symptoms. Has had CAT scans that showed nephrolithiasis with no kidney stone. Blood cultures were obtained and urine culture on her last visit. Urine culture tested positive for E. coli. She was given 1 dose of Zosyn. She is not on antibiotics. She denies any nausea vomiting or diarrhea. Tonight after her shower she developed a gradual onset headache. She was treated for headache on her last visit as well. She denies any other symptoms. Past Medical History - Allergies and Home Meds Allergies/Adverse Reactions: Allergies tramadol Allergy (Verified 07/25/18 00:09) Anaphylaxis Primary Care Physician: Care Physician,No Primary [Primary Care Provider] - Prior records reviewed: Yes Past Medical History: - - UTi Surgical History: noncontributory Smoking Status: Current every day smoker Review of Systems General: Denies: Chills, Fever, Sweats Eyes: Denies: Visual changes - bilaterally, Diplopia ENT: Denies: Rhinorrhea, Sore throat Cardiovascular: Denies: Chest pain, Palpitations Respiratory: Denies: Dyspnea, Cough, Dyspnea on exertion Gastrointestinal: Denies: Abdominal pain, Nausea, Vomiting, Diarrhea, Melena, Hematochezia Genitourinary: Denies: Dysuria, Hematuria, Frequency Musculoskeletal: Reports: Back pain. Denies: Extremity Pain Skin: Denies: Rash, Wounds Neurological: Reports: Headache. Denies: Weakness, Numbness Physical Exam Vital Signs/Narrative: Vital Signs Temp Pulse Resp BP Pulse Ox 07/25/18 00:06 98.0 F 99 18 135/87 H 95 General: Well nourished, Well developed, No Acute Distress Head: Normocephalic, Atraumatic Eyes: Perrl, EOMI ENT: Moist mucous membranes, No rhinorrhea Neck: Supple, Nontender Cardiovascular: Regular rate, Regular rhythm, No murmurs Respiratory: No distress, CTA bilaterally, Chest nontender Abdomen: Soft, Nontender, Nondistended, Normal bowel sounds Back: Nontender, Normal Inspection Extremities: Nontender, No edema Skin: Normal color, No rash Neurological: Alert, Oriented x3, Cranial nerves II-XII grossly intact, Normal Strength, Normal Sensation Psychological: Normal affect, Normal Mood Diagnostic/Tx/Re-eval - Medical Decision Making Resting comfortably. Normal vital signs. Urine culture tested positive for E. coli sensitive to Cipro. Given Cipro. Given Toradol for her headache. I do not think she needs admitted. She does not appear septic at this time. Resting comfortably. Will follow-up as an outpatient. I think her flank pain is from a pyelonephritis. ED Disposition - Plan for ED Patient: Diagnosis: Pyelonephritis, Headache Instructions: Urinary Tract Infections in Women Prescriptions: Ciprofloxacin [Cipro] 500 mg PO BID #14 tab Referrals: Care Physician,No Primary [Primary Care Provider] - Boris Cr MD [STAFF PHYSICIAN] -
[2018-07-25] MEDS: Ciprofloxacin 500 MG Tablet PO (01:18)
[2018-07-25] MEDS: Ketorolac 30 MG/ML Syringe IM (01:20)
[2018-07-25 01:22] VITALS: PULSE 89; RESP 18; O2SAT 97
== END 2018-07-25 01:36 | disposition home or self-care (01) ==
PROVIDERS: Emergency Provider Emergency Medicine
DX: N12 Tubulo-interstitial nephritis, not specified as acute or chronic (principal); R51 Headache; F17.200 Nicotine dependence, unspecified, uncomplicated
CPT/HCPCS: 96372; 99283

== ENCOUNTER 2018-09-09 20:04 | Emergency (ER) | payer MEDICAID, SELFPAY ==
[2018-09-09 20:04] VITALS: BP 165/94; PULSE 134; RESP 18; TEMP 36.8; O2SAT 96; BMI 34.7
--- NOTE | 2018-09-09 20:55 | ED.VIS.GEN ---
History of Present Illness Chief Complaint: Eye Problem Informant: Patient Onset: Yesterday Narrative: Left eye pain since yesterday, swelling to the lower lid. States pain in the eye. No blurry vision. No nausea or vomiting. No fevers. Does not wear contacts or contacts. Reports saw eye doctor for exam at [facility] sometime this year, was told she did not need glasses. No past medical history. Prior similar symptoms: No Past Medical History - Allergies and Home Meds Allergies/Adverse Reactions: Allergies tramadol Allergy (Verified 09/09/18 20:06) Anaphylaxis Primary Care Physician: Care Physician,No Primary [Primary Care Provider] - Surgical History: noncontributory Smoking Status: Current every day smoker Review of Systems General: Denies: Chills, Fever, Sweats Eyes: Denies: Visual changes - left, Visual changes - right, Visual changes - bilaterally, Diplopia ENT: Denies: Rhinorrhea, Sore throat Cardiovascular: Denies: Chest pain, Palpitations Respiratory: Denies: Dyspnea, Cough, Dyspnea on exertion Gastrointestinal: Denies: Abdominal pain, Nausea, Vomiting, Diarrhea, Melena, Hematochezia Genitourinary: Denies: Dysuria, Hematuria, Frequency Musculoskeletal: Denies: Back pain, Extremity Pain Skin: Denies: Rash, Wounds Neurological: Denies: Headache, Weakness, Numbness Physical Exam Vital Signs/Narrative: Vital Signs Temp Pulse Resp BP Pulse Ox 09/09/18 20:04 98.2 F 134 H 18 165/94 H 96 Inital Vital Signs reviewed: Yes General: Well nourished, Well developed, No Acute Distress Head: Normocephalic, Atraumatic Eyes: Perrl, EOMI, - - Visual acuity 20/25 OS, 20/25 OD. Conjunctiva no erythema eyelids everted no foreign body. Tetracaine instilled, intraocular pressure on the left was 22 with less than 5% consistency. Pupils equal reactive with no midpoint dilated. Swelling lower lid medially towards the duct with mild erythema, no drainage. ENT: Moist mucous membranes, No rhinorrhea Neck: Supple, Nontender Cardiovascular: Regular rate, Regular rhythm, No murmurs Respiratory: No distress, CTA bilaterally, Chest nontender Abdomen: Soft, Nontender, Nondistended, Normal bowel sounds Back: Nontender, Normal Inspection Extremities: Nontender, No edema Skin: Normal color, No rash Neurological: Alert, Oriented x3, Cranial nerves II-XII grossly intact, Normal Strength, Normal Sensation Psychological: Normal affect, Normal Mood Diagnostic/Tx/Re-eval - Medical Decision Making Patient exam notes internal stye near the duct lower lid. Intraocular pressure is 22, slightly above normal. No visual changes. Placed on antibiotic ointment for stye she is given ophthalmology for follow-up. ED Disposition - Plan for ED Patient: Disposition: Home or Assisted Living Diagnosis: Hordeolum of left eye, Left eye pain Instructions: When Your Child Has a Stye Referrals: Care Physician,No Primary [Primary Care Provider] - Torin Suárez MD [STAFF PHYSICIAN] - Additional Instructions: Use the ointment twice a day for 7 days. Your left IOP is 22. Follow-up with eye doctor for reevaluation and further testing.
[2018-09-09] MEDS: Erythromycin Base 1 OPTH.TUBE 1 APPLIC LEFT EYE (21:09)
[2018-09-09] MEDS: Tetracaine 0.5% Ophthalmic Bottle 1 DRP LEFT EYE (21:10)
[2018-09-09 21:11] VITALS: BP 158/84; PULSE 88; RESP 16; O2SAT 97
--- NOTE | 2018-09-09 21:12 | CASEMGMT ---
Social Work Referral: No PCP Informant: Self Referral, Dr. Chang. Met with patient and patient significant other in room. Patient reporting to have no housing or transportation issues. Patient does confirm to have no primary care physician. This social staff worker providing patient with list of PCP's in the local area along with Where to Go and When to Go handout. Patient receptive to this social staff worker meeting with patient. Support provided. Margaret FOURNIER, BON
== END 2018-09-09 21:14 | disposition home or self-care (01) ==
PROVIDERS: Emergency Provider Emergency Medicine
DX: H00.015 Hordeolum externum left lower eyelid (principal); H57.12 Ocular pain, left eye; F17.200 Nicotine dependence, unspecified, uncomplicated
CPT/HCPCS: 99282

== ENCOUNTER 2018-10-04 12:04 | Emergency (ER) | payer MEDICAID, SELFPAY ==
[2018-10-04 12:06] VITALS: BP 140/95; PULSE 117; RESP 16; TEMP 36.1; O2SAT 98; BMI 34.0
--- NOTE | 2018-10-04 12:21 | ED.RN ---
Addendum entered by Lorelei Greene 10/04/18 12:23: on ativan in past for general and social anxiety. Original Note: pt reports depression. hears voices regularly i can usually just ignore them but they are geting bad today. denies si. voices are not telling her any self harm. reports used to be on ativan and adderall 2 years ago. seen fro the depression and tried prozaac but just made her sleep. not found depression medication that works for here.
--- NOTE | 2018-10-04 12:50 | ED.VIS.GEN ---
History of Present Illness Chief Complaint: Depression Informant: Patient Onset: Weeks - 2 Timing: Continuous Current Severity: Moderate Maximum Severity: Moderate Narrative: Patient is here for depression. He has no suicidal ideations. She has been depressed for some time she is not on any medications she is finding herself tearful today. She denies any thoughts of hurting herself any plans of hurting herself. She has decreased sleep, she does not feel hopeless, she has family at home which she lives with. She has no prior suicidal attempts, although she did cut when she was younger. Past Medical History - Allergies and Home Meds Allergies/Adverse Reactions: Allergies tramadol Allergy (Verified 10/04/18 12:08) Anaphylaxis Primary Care Physician: Care Physician,No Primary [Primary Care Provider] - Past Medical History: - - Depression Surgical History: noncontributory Smoking Status: Current every day smoker Review of Systems All systems negative except as indicated General: Denies: Fever ENT: Denies: Rhinorrhea, Sore throat Cardiovascular: Denies: Chest pain, Palpitations Respiratory: Denies: Dyspnea, Cough, Dyspnea on exertion Gastrointestinal: Denies: Abdominal pain, Nausea, Vomiting, Diarrhea, Melena, Hematochezia Genitourinary: Denies: Dysuria, Hematuria, Frequency Musculoskeletal: Denies: Back pain, Extremity Pain Skin: Denies: Rash, Wounds Neurological: Denies: Headache, Weakness, Numbness Psych: Reports: Depression, Anxiety. Denies: Suicidal thoughts, Suicidal ideations Physical Exam Vital Signs/Narrative: Vital Signs Temp Pulse Resp BP Pulse Ox 10/04/18 12:06 97 F L 117 H 16 140/95 H 98 Inital Vital Signs reviewed: Yes General: Well nourished Head: Normocephalic Eyes: Negative for: Pale conjunctiva ENT: Moist mucous membranes Neck: Supple Cardiovascular: Regular rate, Regular rhythm Respiratory: No distress Abdomen: Soft Back: Nontender Extremities: Nontender, No edema Skin: Normal color Neurological: Alert, Normal Sensation. Negative for: Weakness Psychological: - - She is lucid coherent slightly depressed affect, she denies suicidal ideations. Diagnostic/Tx/Re-eval - Medical Decision Making I talked at length with the patient, her modified sad person score is 0. She is certainly safe for discharge I will give her Vistaril, I called social work to get an appointment in with counseling. She is quite reasonable and tells me that she would return if she ever thought about hurting herself. Disposition: discharged home stable condition ED Disposition - Plan for ED Patient: Disposition: Home or Assisted Living Diagnosis: Depressed Instructions: Depression Prescriptions: Hydroxyzine Pamoate [Vistaril] 50 mg PO 4X/DAY PRN PRN #20 cap PRN Reason: Anxiety Prescription Printed Referrals: Counseling,Center [GROUP OF PHYSICIANS] -
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
[2018-10-04] MEDS: LORazepam 0.5 MG Tablet PO (14:04)
== END 2018-10-04 14:04 | disposition home or self-care (01) ==
PROVIDERS: Emergency Provider Emergency Medicine
DX: F32.9 Major depressive disorder, single episode, unspecified (principal); F17.200 Nicotine dependence, unspecified, uncomplicated
CPT/HCPCS: 99283

== ENCOUNTER 2018-11-03 20:56 | Emergency (ER) | payer MEDICAID, SELFPAY ==
[2018-11-03 20:56] VITALS: BP 129/83; PULSE 97; RESP 17; TEMP 36.7; O2SAT 98; BMI 35.4
--- NOTE | 2018-11-03 21:34 | ED.VIS.GEN ---
History of Present Illness Chief Complaint: Upper Extremity Injury Informant: Patient Onset: Weeks - 3 Timing: Continuous Current Severity: Moderate Maximum Severity: Moderate Narrative: Patient presents with left-sided shoulder pain for a few weeks. In fact most of the pain is behind her left shoulder and trapezius region. She has no fever chills chest pain or shortness of breath. She does not know about an obvious injury. It is worse with movement. Pain is mild to moderate worse with movement Past Medical History - Allergies and Home Meds Allergies/Adverse Reactions: Allergies tramadol Allergy (Verified 11/03/18 20:59) Anaphylaxis Primary Care Physician: Care Physician,No Primary [Primary Care Provider] - Prior records reviewed: Yes Past Medical History: None Surgical History: noncontributory Smoking Status: Current every day smoker Review of Systems General: Denies: Fever Cardiovascular: Denies: Chest pain Respiratory: Denies: Dyspnea, Cough Gastrointestinal: Denies: Abdominal pain, Nausea Musculoskeletal: Reports: Myalgias, Back pain Skin: Denies: Rash Neurological: Denies: Weakness, Parasthesia Physical Exam Vital Signs/Narrative: Vital Signs Temp Pulse Resp BP Pulse Ox 11/03/18 20:56 98.1 F 97 17 129/83 H 98 General: Well nourished, Well developed ENT: Moist mucous membranes Cardiovascular: Regular rate, Regular rhythm Respiratory: No distress, CTA bilaterally Back: - - There is tenderness over the left trapezius region. There are some trigger point in that region. No neck pain. Extremities: - - There is no significant shoulder pain she moves her shoulder in all directions with minimal pain most of her pain is in the trapezius region Skin: Normal color, No rash Neurological: Normal Strength, Normal Sensation Diagnostic/Tx/Re-eval - Medical Decision Making Patient has a thoracic strain, I will give her an muscle relaxants, I showed her exercises and proper posture. No x-rays are needed ED Disposition - Plan for ED Patient: Disposition: Home or Assisted Living Diagnosis: Thoracic myofascial strain Instructions: Thoracic Strain Prescriptions: Naproxen [Naprosyn] 500 mg PO BID PRN #20 tab Prescription Printed Tizanidine HCl 4 mg PO TID #20 tab Prescription Printed Referrals: Care Physician,No Primary [Primary Care Provider] - 3-5 Days
[2018-11-03] MEDS: tiZANidine HCl 2 MG Tablet 4 MG PO (21:45)
== END 2018-11-03 21:48 | disposition home or self-care (01) ==
LOC: ED 21:43
PROVIDERS: Emergency Provider Emergency Medicine
DX: S29.012A Strain of muscle and tendon of back wall of thorax, initial encounter (principal); F17.200 Nicotine dependence, unspecified, uncomplicated; X58.XXXA Exposure to other specified factors, initial encounter; Y93.89 Activity, other specified; Y92.89 Other specified places as the place of occurrence of the external cause; Y99.8 Other external cause status
CPT/HCPCS: 99283

== ENCOUNTER 2018-11-25 12:33 | Emergency (ER) | payer MEDICAID, SELFPAY ==
[2018-11-25 12:34] VITALS: BP 122/88; PULSE 128; RESP 24; TEMP 37.5; O2SAT 97; BMI 35.4
--- NOTE | 2018-11-25 12:42 | RAD_ITS ---
STUDY: X-RAY CHEST REASON FOR EXAM: Female, 23 years old. 3 day history of flulike symptoms. TECHNIQUE: PA and lateral views of the chest. COMPARISON: Comparison is made with prior study dated July 21, 2018. FINDINGS: EKG electrodes are seen. The lungs are clear and expanded. There is no demonstrated pleural abnormality. Normal size heart. Normal mediastinum and aylin. Normal visualized pulmonary arteries. Normal visualized aortic arch and descending thoracic aorta. Stable appearance of the Meraz arpit fixation device. Normal visualized ribs, clavicles, and shoulders. There is no demonstrated abnormality of the visualized soft tissue structures of the upper abdomen. RAD/Chest PA and Lateral IMPRESSION: No acute abnormality is seen. Electronically Signed: Mac Nation, at 13:30 EDT , Service support ,
--- NOTE | 2018-11-25 12:51 | ED.VIS.GEN ---
History of Present Illness Chief Complaint: General Illness Informant: Patient Onset: Days Context: Gradual Onset Timing: Intermittent Current Severity: Moderate Maximum Severity: Moderate Narrative: The patient presents to the emergency department fever, chills, myalgias, and cough. Stuck the patient had symptoms began Saturday evening. She states she just did not feel well. She was having cough with some productive sputum. She states over the past 2 days, she is had fevers that will break with ibuprofen or Tylenol, but then come back. She states she has had a few bouts of posttussive emesis. She denies any recent travel. She has no history of immunosuppression. She denies any recent sick contacts. She also admits to some increasing urinary frequency and urgency. Prior similar symptoms: No Recent Illness/Hospitalization: No Past Medical History - Allergies and Home Meds Allergies/Adverse Reactions: Allergies tramadol Allergy (Verified 11/25/18 12:33) Anaphylaxis Primary Care Physician: Care Physician,No Primary [Primary Care Provider] - Prior records reviewed: Yes Past Medical History: None Surgical History: noncontributory Smoking Status: Current every day smoker Review of Systems General: Reports: Chills, Fever. Denies: Sweats Eyes: Denies: Visual changes - bilaterally, Diplopia ENT: Denies: Rhinorrhea, Sore throat Cardiovascular: Denies: Chest pain, Palpitations Respiratory: Reports: Cough. Denies: Dyspnea, Dyspnea on exertion Gastrointestinal: Reports: Nausea. Denies: Abdominal pain, Vomiting, Diarrhea, Melena, Hematochezia Genitourinary: Reports: Dysuria. Denies: Hematuria, Frequency Musculoskeletal: Denies: Back pain, Extremity Pain Skin: Denies: Rash, Wounds Neurological: Denies: Headache, Weakness, Numbness Physical Exam Vital Signs/Narrative: Vital Signs Temp Pulse Resp BP Pulse Ox 11/25/18 12:34 99.5 F H 128 H 24 H 122/88 H 97 Inital Vital Signs reviewed: Yes General: Well nourished, Well developed, No Acute Distress Head: Normocephalic, Atraumatic Eyes: Perrl, EOMI ENT: Moist mucous membranes, No rhinorrhea Neck: Supple, Nontender Cardiovascular: Regular rate, Regular rhythm, No murmurs Respiratory: No distress, CTA bilaterally, Chest nontender Abdomen: Soft, Nontender, Nondistended, Normal bowel sounds Back: Nontender, Normal Inspection Extremities: Nontender, No edema Skin: Normal color, No rash Neurological: Alert, Oriented x3, Cranial nerves II-XII grossly intact, Normal Strength, Normal Sensation Psychological: Normal affect, Normal Mood Diagnostic/Tx/Re-eval Chest X-Ray - ED: 2 View, Read by ED Physician, Normal, Heart, Lungs, Right Infiltrate Clinical Impression(s) from Imaging Studies Chest X-Ray 11/25/18 12:42 IMPRESSION: No acute abnormality is seen. Electronically Signed: Mac Chapis, at 13:30 EDT , Service support , Abnormal Lab Results 11/25/18 11/25/18 11/25/18 12:50 12:50 12:50 WBC 11.6 H RBC 4.92 Hgb 15.2 H Hct 45.5 MCV 92.5 MCH 30.9 MCHC 33.4 RDW Std Deviation 42.5 RDW Coeff of Josh 12.5 Plt Count 215 MPV 10.8 Immature Gran % (Auto) 0.300 Neut % (Auto) 75.9 H Lymph % (Auto) 13.2 L [place] % (Auto) 9.3 Eos % (Auto) 0.9 Baso % (Auto) 0.4 Absolute Neuts (auto) 8.8 H Absolute Lymphs (auto) 1.53 Nucleated RBC % 0 Sodium 138 Potassium 4.3 Chloride 104 Carbon Dioxide 27.0 Anion Gap 7 BUN 8 Creatinine 0.89 Estim Creat Clear Calc 86.34 Est GFR (MDRD) Af Amer 103 Est GFR (MDRD) Non-Af 85 BUN/Creatinine Ratio 9.0 L Glucose 91 Calcium 9.5 Urine Color Urine Clarity Urine pH Ur Specific [place] Urine Protein Urine Glucose (UA) Urine Ketones Urine Occult Blood Urine Nitrite Urine Bilirubin Urine Urobilinogen Ur Leukocyte Esterase Urine RBC Urine WBC Ur Squamous Epith Cells Urine Bacteria Urine Mucus Urine Test Negative 11/25/18 12:50 WBC RBC Hgb Hct MCV MCH MCHC RDW Std Deviation RDW Coeff of Josh Plt Count MPV Immature Gran % (Auto) Neut % (Auto) Lymph % (Auto) [place] % (Auto) Eos % (Auto) Baso % (Auto) Absolute Neuts (auto) Absolute Lymphs (auto) Nucleated RBC % Sodium Potassium Chloride Carbon Dioxide Anion Gap BUN Creatinine Estim Creat Clear Calc Est GFR (MDRD) Af Amer Est GFR (MDRD) Non-Af BUN/Creatinine Ratio Glucose Calcium Urine Color Yellow Urine Clarity Clear Urine pH 8.0 Ur Specific [place] 1.010 Urine Protein Negative Urine Glucose (UA) Normal Urine Ketones Negative Urine Occult Blood 25 H Urine Nitrite Negative Urine Bilirubin Negative Urine Urobilinogen Normal Ur Leukocyte Esterase 25 H Urine RBC 0-5 SEEN Urine WBC 5-10 SEEN Ur Squamous Epith Cells 0-5 SEEN Urine Bacteria 0 SEEN Urine Mucus 0 SEEN Urine Test - Rhythm Strip Rhythm Strip: Sinus Rhythm Rate: 98 Ectopy: None - Medical Decision Making The patient presents with fever and cough. She does have some coarse sounds towards the right base that clears with cough. Her x-ray does not show definitive infiltrate, but based on the penetrance, I do feel that there may be an early infiltrate in the right base. Screening labs are obtained. She does have a mild leukocytosis, but otherwise labs are unremarkable. The patient was given fluids, antiemetics, and anti-inflammatories. On reevaluation, her heart rate was 92. Her blood pressure was stable. She was feeling improved. I am going to treat the patient with Augmentin. I do feel that she is safe for outpatient therapy. She has a very low pneumonia severity index. She is comfortable with this plan of care and will be discharged home. Impression 1. Community-acquired pneumonia ED Disposition - Plan for ED Patient: Instructions: Pneumonia Prescriptions: Amox/Clavulanate Tablet [Augmentin Tablet] 875 mg PO Q12H #20 tab Prescription Printed Ketorolac [Toradol] 10 mg PO Q6H PRN #12 tab PRN Reason: Pain Prescription Printed Referrals: Care Physician,No Primary [Primary Care Provider] -
[2018-11-25 12:52] VITALS: BP 128/71; PULSE 107; PULSE 111; RESP 25; TEMP 37.8; O2SAT 95
[2018-11-25 13:00] LABS: Absolute Lymphocyte Count 1.53 X10^3/uL (0.83-4.51); Absolute Neutrophil Count 8.8 X10^3/uL (2.0-7.7); Basophil# 0.05 X10^3/uL; Basophil% 0.4 % (0-1); Eosinophils% 0.9 % (0-5); Hematocrit 45.5 % (37-47); Hemoglobin 15.2 g/dL (12.0-15.0); Lymphocyte # 1.53 X10^3/ul (4.0); Lymphocyte % 13.2 % (19-41); Mean Corp Hgb Conc 33.4 g/dL (32-36); Mean Corpuscular Hgb 30.9 pg (27.0-32.0); Mean Corpuscular Volume 92.5 fL (81-99); Mean Platelet Vol. 10.8 fl (6.2-12.0); Monocyte# 1.08 X10^3/uL; Monocyte% 9.3 % (0-10); NRBC Flagged by Analyzer 0 % (0-5); Neutrophil # 8.82 X10^3/uL (2.7-7.7); Neutrophil % 75.9 % (47-70); Platelet Count 215 K/mm3 (150-450); RBC Distribution Width CV 12.5 % (11.6-14.6); RBC Distribution Width SD 42.5 fl (35.1-43.9); Red Blood Count 4.92 M/mm3 (4.2-5.4); White Blood Count 11.6 K/mm3 (4.4-11.0)
[2018-11-25 13:11] LABS: Bacteria 0 SEEN /hpf (None Seen); Mucous, Urine 0 SEEN /hpf (<or=2+)
[2018-11-25 13:13] LABS: Color, Urine Yellow (Yellow); Glucose, Dipstick Normal (Normal); Ketone-Dipstick Negative (Negative); Leukocyte Esterase-Dipstick 25 /ul (Negative); Nitrite-Dipstick Negative (Negative); Occult Blood-Urine 25 /ul (Negative); Protein-Dipstick Negative (Negative); Urine Bilirubin Dipstick Negative (Negative); Urine Clarity Clear (Clear); Urine Urobilinogen Normal (Normal)
[2018-11-25] MEDS: Ketorolac 15 MG/ML Vial IV (13:13)
[2018-11-25] MEDS: proMETHazine 25 MG/ML Syringe 6.25 MG IV (13:13)
[2018-11-25] MEDS: 0.9% Normal Saline 1,000 ML 1000 ML IV (13:13)
[2018-11-25 13:16] LABS: Anion Gap 7 (5-15); BUN 8 mg/dL (7-18); Calcium,Total 9.5 mg/dL (8.5-10.1); Chloride 104 mmol/L (98-107); Creatinine, Serum 0.89 mg/dL (0.55-1.02); EST Glomerular Filtration Rate 85 mL/min (>60); Est Glom Filt Rate - Afr Amer 103 mL/min (>60); Estimated Creatinine Clearance 86.34 ml/min; Glucose 91 mg/dL (74-106); Potassium 4.3 mmol/L (3.5-5.1); Sodium Level 138 mmol/L (136-145)
[2018-11-25 13:17] LABS: Internal QC Validated? YES +Cl - CLEAR BKGD; Pregnancy, Urine Negative Negative
[2018-11-25 13:24] LABS: Red Blood Cells-Urine 0-5 SEEN /hpf (0-5); Squamous Epithelial Cells - UA 0-5 SEEN /hpf (5-10); White Blood Cells 5-10 SEEN /hpf (0-5)
[2018-11-25 13:50] VITALS: BP 112/73; PULSE 92; RESP 16; O2SAT 97
== END 2018-11-25 14:12 | disposition home or self-care (01) ==
LOC: ED 13:09
PROVIDERS: Emergency Provider Emergency Medicine
DX: J18.9 Pneumonia, unspecified organism (principal); F17.200 Nicotine dependence, unspecified, uncomplicated
CPT/HCPCS: 71046; 80048; 81001; 81025; 85025; 96361; 96374; 96375; 99284; J7030; A4216

== ENCOUNTER 2019-01-07 09:37 | Emergency (ER) | payer MEDICAID, SELFPAY ==
[2019-01-07 09:38] VITALS: BP 135/103; PULSE 122; RESP 18; TEMP 37; O2SAT 98; BMI 35.2
[2019-01-07 10:52] LABS: Absolute Lymphocyte Count 1.29 X10^3/uL (0.83-4.51); Absolute Neutrophil Count 8.5 X10^3/uL (2.0-7.7); Basophil# 0.04 X10^3/uL; Basophil% 0.4 % (0-1); Eosinophil# 0.16 X10^3/uL; Eosinophils% 1.5 % (0-5); Hematocrit 44.7 % (37-47); Hemoglobin 14.6 g/dL (12.0-15.0); Lymphocyte # 1.29 X10^3/ul (4.0); Lymphocyte % 12.1 % (19-41); Mean Corp Hgb Conc 32.7 g/dL (32-36); Mean Corpuscular Volume 91.8 fL (81-99); Mean Platelet Vol. 10.5 fl (6.2-12.0); Monocyte% 5.6 % (0-10); NRBC Flagged by Analyzer 0 % (0-5); Platelet Count 222 K/mm3 (150-450); RBC Distribution Width SD 43.7 fl (35.1-43.9); Red Blood Count 4.87 M/mm3 (4.2-5.4); White Blood Count 10.6 K/mm3 (4.4-11.0)
[2019-01-07] MEDS: Ondansetron 4 MG/2 ML Vial IV (11:03)
[2019-01-07] MEDS: 0.9% Normal Saline 1,000 ML 1000 ML IV (11:03)
[2019-01-07] MEDS: Dicyclomine 20 MG/2 ML Vial IM (11:03)
[2019-01-07 11:04] LABS: Anion Gap 7 (5-15); BUN 10 mg/dL (7-18); BUN/Creat Ratio 13.6 RATIO (10-20); Calcium,Total 9.3 mg/dL (8.5-10.1); Chloride 106 mmol/L (98-107); Creatinine, Serum 0.74 mg/dL (0.55-1.02); EST Glomerular Filtration Rate 105 mL/min (>60); Est Glom Filt Rate - Afr Amer 128 mL/min (>60); Estimated Creatinine Clearance 103.85 ml/min; Glucose 85 mg/dL (74-106); Potassium 3.9 mmol/L (3.5-5.1); Sodium Level 137 mmol/L (136-145)
[2019-01-07 11:13] LABS: Internal QC Validated? YES +Cl - CLEAR BKGD; Pregnancy, Serum, hCG Quali. NEGATIVE Negative
[2019-01-07 11:17] LABS: Red Blood Cells-Urine 0 SEEN /hpf (0-5)
[2019-01-07 11:18] LABS: Color, Urine Yellow (Yellow); Glucose, Dipstick Normal (Normal); Ketone-Dipstick Negative (Negative); Leukocyte Esterase-Dipstick 25 /ul (Negative); Nitrite-Dipstick Negative (Negative); Occult Blood-Urine 10 /ul (Negative); Protein-Dipstick Negative (Negative); Specific Gravity, Urine 1.015 (1.002-1.030); Urine Bilirubin Dipstick Negative (Negative); Urine Clarity Clear (Clear); Urine Urobilinogen Normal (Normal)
[2019-01-07 11:25] LABS: Bacteria 1+ /hpf (None Seen); Squamous Epithelial Cells - UA 5-10 SEEN /hpf (5-10); White Blood Cells 0-5 SEEN /hpf (0-5)
[2019-01-07 11:26] LABS: Mucous, Urine 1+ /hpf (<or=2+)
--- NOTE | 2019-01-07 11:42 | ED.DCSUM_ITS ---
- ER Visit Summary Date of Service: 01/07/19 Chief Complaint: [Diarrhea and abdominal pain] History of Present Illness: The patient is a 23 F [presents to the emergency department stating she has not been feeling well over the last 4 days. Patient states that she went to a [place] in [facility] 5 days ago. She denies eating anything undercooked or unusual. Patient states that she had some sandwiches that she brought herself and also ate some Micron[place] fries that were cooked in there. Patient the following day started having abdominal cramping and having watery stools. Patient complains of nausea but no real vomiting. Patient denies any sick contacts. She has no medical history. She denies r ecent antibiotic usage. She denies blood in her stool or black tarry stools.] Physical Examination: [HEENT-PERRLA, EOMI. Cranial nerves II through XII grossly intact. TMs clear. Mucous membranes moist. No adenopathy. Cardiovascular-regular rate and rhythm without murmur or ectopy Lungs-clear to auscultation, chest wall stable without crepitus or subcu emphysema Abdomen-normoactive bowel sounds, soft. Patient has some mild diffuse tenderness throughout. There is no rebound, rigidity, or perineal signs. Extremities-intact ?4, normal range of motion, normal pulses, atraumatic] Test Results: [CBC with differential obtained was normal. Chemistries unremarkable. Urinalysis was normal.] hCG was negative. Enteric pathogens ordered however patient could not produce a stool sample. Emergency Department Course and Treatment: [Given a liter normal same fluid bolus. Patient was given Bentyl 20 mg IM. Patient did feel improved after treatment. Patient does not feel like she can give a stool sample.] Treatment Plan: [She will be given a prescription to bring in a sample for enteric pathogens should her diarrhea continue. Patient advised to use Imodium as needed for the diarrhea. Patient will be given a prescription for Bentyl. Patient will be given referral to primary care physician for follow-up. I suspect likely a viral etiology to this diarrheal illness.] Disposition: [Discharged home in stable condition] Impression: [Diarrhea-suspect viral etiology] This note was generated with [employer] dictation software. It may contain incorrect words, spelling, and punctuation that were not noted in review of the chart pr ior to signing ED Disposition - Plan for ED Patient: Referrals: Care Physician,No Primary [Primary Care Provider] -
--- NOTE | 2019-01-07 11:45 | ED.DEP ---
ED Disposition - Plan for ED Patient: Instructions: DIARRHEA, Unk Cause (Adult) Report Pendg, DIARRHEA, Viral (Child) (Adult) Prescriptions: Dicyclomine HCl [Bentyl] 20 mg PO TIDAC #20 cap Prescription Printed Referrals: Care Physician,Rae Primary [Primary Care Provider] - Carissa Garcia MD [STAFF PHYSICIAN] - 3-5 Days
[2019-01-07 12:34] VITALS: BP 114/52; PULSE 90; RESP 16; O2SAT 98
== END 2019-01-07 12:42 | disposition home or self-care (01) ==
LOC: ED 10:07
PROVIDERS: Emergency Provider Emergency Medicine
DX: K52.9 Noninfective gastroenteritis and colitis, unspecified (principal); Z72.0 Tobacco use
CPT/HCPCS: 80048; 81001; 84703; 85025; 87506; 96361; 96372; 96374; 99284; J7030; A4216; J2405

== ENCOUNTER → 2019-01-07 | Outpatient (CLI) | payer MEDICAID, SELFPAY ==
[2019-01-07 09:38] VITALS: BMI 35.2
--- NOTE | 2019-01-15 05:34 | ED.RN ---
patient called in and wanted to find out results from stool sample she brought in
== END | disposition home or self-care (01) ==
LOC: LABSPEC 15:08
PROVIDERS: Visit Provider Internal Medicine
DX: R19.7 Diarrhea, unspecified (principal)

== ENCOUNTER 2019-01-31 03:01 | Outpatient (REF) | payer SELFPAY | END 2019-01-31 07:00 | disposition home or self-care (01) | LOC: ED 03:01 | DX: Z04.41 Encounter for examination and observation following alleged adult rape (principal) ==

== ENCOUNTER → 2019-09-23 10:39 | Outpatient (CLI) | payer MEDICAID, SELFPAY ==
[2019-09-22 14:20] VITALS: BMI 35.2
[2019-09-23 14:00] LABS: Chlamydia Trachomatis by PCR POSITIVE (Negative); Neisserai gonorrhoeae by PCR Negative (Negative); Probe Check PASS; Sample Adequacy Control PASS; Specimen Processing Control PASS
== END ==
PROVIDERS: Referring Provider Physician Assistant Surgical; Visit Provider Physician Assistant Surgical
DX: Z20.2 Contact with and (suspected) exposure to infections with a predominantly sexual mode of transmission (principal)
CPT/HCPCS: 87491; 87591

== ENCOUNTER → 2019-10-13 15:27 | Outpatient (CLI) | payer MEDICAID, SELFPAY ==
[2019-10-13 13:00] VITALS: BMI 35.2
[2019-10-13 18:35] LABS: Chlamydia Trachomatis by PCR Negative (Negative); Neisserai gonorrhoeae by PCR Negative (Negative); Probe Check PASS; Sample Adequacy Control PASS; Specimen Processing Control PASS
== END ==
PROVIDERS: Referring Provider Physician Assistant Surgical; Visit Provider Physician Assistant Surgical
DX: Z20.2 Contact with and (suspected) exposure to infections with a predominantly sexual mode of transmission (principal)
CPT/HCPCS: 87491; 87591

== ENCOUNTER 2020-08-25 14:47 | Emergency (ER) | payer MEDICAID, SELFPAY ==
[2019-10-13 13:00] VITALS: BMI 35.2
[2020-08-25 14:48] VITALS: BP 149/80; PULSE 114; RESP 17; TEMP 36.5; O2SAT 97; BMI 37.3
[2020-08-25 14:51] VITALS: BP 149/80; PULSE 99; RESP 17; TEMP 36.5; O2SAT 97
--- NOTE | 2020-08-25 15:02 | RAD_ITS ---
STUDY: X-RAY CHEST REASON FOR EXAM: Female, 25 years old. Trace of breath and cough. Right 25. TECHNIQUE: Single AP portable view of the chest. COMPARISON: Comparison is made with prior study dated 11/25/2018. FINDINGS: The lungs are clear and expanded. There is no demonstrated pleural abnormality. Normal size heart. Normal mediastinum and aylin. Normal visualized pulmonary arteries. Normal visualized aortic arch and descending thoracic aorta. Prior intrapedicular screw and arpit fixation of the thoracic spine. Normal visualized ribs, clavicles, and shoulders. There is no demonstrated abnormality of the visualized soft tissue structures of the upper abdomen. RAD/Chest 1 View (Portable) IMPRESSION: No acute abnormality is seen. Electronically Signed: Mac Nation MD at 15:25 EDT , Service support ,
--- NOTE | 2020-08-25 15:03 | EX.ED.DYSGE1 ---
HPI History of Present Illness Chief Complaint: Cold Sx Informant: patient Narrative Narrative: Patient reports 1 week of nasal congestion cough shortness of breath. She also notes that she has a tooth on the right lower side once had a filling in it and that the filling has partially come out. She states she has been meaning to get a new dentist for some time but has been unsuccessful. She states of the past 2 days now it is been hurting worse. She is a smoker. No fevers. No diarrhea or vomiting. No rashes. [facility] Medical History (Updated 08/25/20 @ 16:[address] Francesco Mason, ) Asthma Back pain Headache Knee pain Neck pain Home Medications albuterol sulfate [Ventolin HFA] 2 puff INHALATION Q4H PRN PRN #1 inhaler 08/25/20 [Rx Last Taken Unknown] penicillin V potassium 500 mg PO 4X/DAY #40 tab 08/25/20 [Rx Last Taken Unknown] prednisone 60 mg PO DAILY #15 tablet 08/25/20 [Rx Last Taken Unknown] Allergy/AdvReac Type Severity Reaction Status Date / Time tramadol Allergy Anaphylaxis Verified 08/25/20 14:48 Family History Other Diabetes Low blood sugar Surgical History History of back surgery Social History (Updated 08/25/20 @ 15:[address] Francesco Mason, DO) Smoking Status: Current every day smoker tobacco type: cigarettes substance use type: does not use ROS ROS ED Constitutional Constitutional ED: Denies chills or weight loss Eyes Eyes: Denies change in vision or diplopia ENT ENT ED: Reports rhinorrhea and other Details: Dental pain voice change ; Denies ear pain or sore throat Cardiovascular Cardiovascular: Denies chest pain, orthopnea, palpitations or racing heartbeat Respiratory/Chest Respiratory/Chest: Reports cough, dyspnea and sputum; Denies orthopnea Gastrointestinal Gastrointestinal: Denies abdominal pain, diarrhea, nausea or vomiting Genitourinary Genitourinary ED: Denies dysuria, hematuria or urinary frequency Musculoskeletal Musculoskeletal: Denies arthralgias or myalgias Integumentary Denies abscess or rash Neurologic Neurologic: Denies headache(s) or weakness Psychiatric Psychiatric: Denies anxiety, depression, suicidal ideation or suicidal thoughts Endocrine Endocrinology: Denies polydipsia, polyphagia or polyuria Allergic/Immunologic Allergic/Immunologic ED: Denies mouth swelling, tongue swelling or urticaria EXAM Physical Exam Const Vital Signs: 08/25/20 14:48 08/25/20 14:51 08/25/20 15:13 Temperature 97.7 F L 97.7 F L Temperature Source Temporal Temporal Pulse Rate 114 H 99 Respiratory Rate 17 17 Respiratory Pattern Normal Blood Pressure 149/80 H 149/80 H Blood Pressure Mean 103 103 Pulse Ox 97 97 Oxygen Delivery Method Room Air Room Air Positive well nourished and well developed General Appearance ED: well developed HEENT Reports normocephalic, head/scalp atraumatic and moist mucous membranes HEENT Narrative: Rhinorrhea and turbinate congestion. On dental exam there is a premolar with partial filling in it. There is no significant gum swelling or obvious abscess noted. No facial swelling or erythema noted Eyes PERRL and EOMs intact bilaterally Neck no lymphadenopathy, supple and no JVD Resp normal respiratory effort and clear to auscultation bilaterally Cardio regular rate, regular rhythm and no murmurs GI normal to inspection, nondistended, normoactive bowel sounds and non-tender Palpation: soft Back/Spine no CVA tenderness and normal ROM Extremity normal to inspection General Extremety ED: Negative for edema General Extremity: Negative for edema Neuro oriented x3 and CN's II-XII intact bilaterally Sensorium / Orientation: alert Motor Exam: strength 5/5 throughout Psych mental status grossly normal Mood & Affect: Negative for depressed or tearful Skin no rashes or lesions noted and no wounds MDM MDM MDM Narrative Medical decision making narrative: Covid test was obtained. This was negative My interpretation of the plain films of the chest x-ray is no acute process. Radiology concurs. Patient will be started on penicillin for the tooth. I will write for prednisone and albuterol MDI for her bronchitis. Radiography Diagnostic Testing: Radiology Impression Chest X-Ray 08/25/20 15:02 IMPRESSION: No acute abnormality is seen. Electronically Signed: Mac Nation MD at 15:25 EDT , Service support , Discharge Plan Triage Chief Complaint: Cold Sx ED Provider: Francesco Mason Dx/Rx/DC Orders Clinical Impression: Dental decay, Bronchitis Instructions: ED Bronchitis, No Antibiotic (Adult), ED Dental Cavity Prescriptions: New penicillin V potassium 250 MG tablet 500 mg PO 4X/DAY Qty: 40 RF: 0 prednisone 20 MG tablet 60 mg PO DAILY Qty: 15 RF: 0 albuterol sulfate [Ventolin HFA] 1 INHALER inhaler 2 puff inhalation Q4H PRN PRN (Reason: Wheezing) Qty: 1 RF: 0 Primary Care Provider: Care Physician,No Primary Referrals: Kaylen Garcia MD [STAFF PHYSICIAN] - As Needed (for primary care) Care Physician,No Primary [Primary Care Provider] - Disposition Disposition: Home, self care
== END 2020-08-25 16:10 | disposition home or self-care (01) ==
PROVIDERS: Emergency Provider Emergency Medicine
DX: K02.9 Dental caries, unspecified (principal); J40 Bronchitis, not specified as acute or chronic; F17.210 Nicotine dependence, cigarettes, uncomplicated
CPT/HCPCS: 71045; 87426; 99282

== ENCOUNTER → 2020-09-13 12:24 | Outpatient (CLI) | payer MEDICAID, SELFPAY ==
[2020-08-25 14:48] VITALS: BMI 37.3
[2020-09-13 15:26] LABS: Hemoglobin A1c 5.4 % (3.8-5.6)
[2020-09-13 15:29] LABS: Estradiol 54.4 pg/mL; Follicle Stimulating Hormone 4.4 mIU/mL; Luteinizing Hormone 8.5 mIU/mL; Prolactin 11.5 ng/mL; T4 Free Direct 1.12 ng/dL (0.76-1.46); Thyroid Stim Hormone (TSH) 1.44 uIU/mL (0.358-3.74)
[2020-09-13 16:28] LABS: HIV - WCH Non-Reactive (Nonreactive); Hepatitis B Surface Antibody Non-Reactive; Hepatitis B Surface Antigen Non-Reactive (Nonreactive); Hepatitis C Antibody Non-Reactive (Nonreactive); Syphilis Antibodies Non-reactive
[2020-09-17 07:37] LABS: HPV Reflexed? NOT INDICATED
[2020-09-18 20:07] LABS: Chlamydia By Nucleic Acid AMP Negative (Negative); Gonococcus By Nucleic Acid AMP Negative (Negative)
== END ==
PROVIDERS: Visit Provider Student in an Organized Health Care Education/Training Program
DX: N92.6 Irregular menstruation, unspecified (principal); Z11.3 Encounter for screening for infections with a predominantly sexual mode of transmission
CPT/HCPCS: 36415; 82627; 82670; 83001; 83002; 83036; 84146; 84402; 84439; 84443; 86703; 86706; 86780; 86803; 87340; 87491; 87591; 88175; 82626; G0145

== ENCOUNTER 2020-11-02 13:19 | Emergency (ER) | payer MEDICAID, SELFPAY ==
[2020-11-02 13:20] VITALS: BP 136/78; PULSE 107; RESP 18; TEMP 36.2; O2SAT 99; BMI 35.7
[2020-11-02 13:50] VITALS: BP 125/86; PULSE 89; RESP 16; O2SAT 97
--- NOTE | 2020-11-02 14:08 | EDS_ITS ---
HPI History of Present Illness Chief Complaint: Dental Informant: patient Narrative Narrative: 25-year-old female presents with dental pain. She tells me that this morning she was eating a corn dog and suddenly had pain on her bottom right premolar. She states that the pain went up into her face and down into her neck. Now it is settled in the tooth. She states it is very hard for her to find a dentist in the last dentist she went to the filling fell out and now she has chronic pain in that tooth. [facility] Medical History (Updated 11/02/20 @ 14:[address] Francesco Mason DO) Asthma Back pain Headache Knee pain Neck pain Home Medications norgestimate 0.25 mg-ethinyl estradiol 35 mcg tablet 1 tab PO DAILY 10/24/20 [History Last Taken Unknown] meloxicam 15 mg PO DAILY 11/02/20 [History Last Taken Unknown] penicillin V potassium 500 mg PO 4X/DAY #28 tab 11/02/20 [Rx Last Taken Unknown] Allergy/AdvReac Type Severity Reaction Status Date / Time tramadol Allergy Anaphylaxis Verified 11/02/20 13:21 Family History Other Diabetes Low blood sugar Surgical History History of back surgery Social History Smoking Status: Current every day smoker tobacco type: cigarettes Tobacco: How many years used: 7 substance use type: does not use ROS ROS ED Constitutional Constitutional ED: Denies chills or weight loss Eyes Eyes: Denies change in vision or diplopia ENT ENT ED: Reports other Details: Dental pain ; Denies ear pain, rhinorrhea or sore throat Cardiovascular Cardiovascular: Denies chest pain, orthopnea, palpitations or racing heartbeat Respiratory/Chest Respiratory/Chest: Denies cough, dyspnea or orthopnea Gastrointestinal Gastrointestinal: Denies abdominal pain, diarrhea, nausea or vomiting Genitourinary Genitourinary ED: Denies dysuria, hematuria or urinary frequency Musculoskeletal Musculoskeletal: Denies arthralgias or myalgias Integumentary Denies abscess or rash Neurologic Neurologic: Denies headache(s) or weakness Psychiatric Psychiatric: Denies anxiety, depression, suicidal ideation or suicidal thoughts Endocrine Endocrinology: Denies polydipsia, polyphagia or polyuria Allergic/Immunologic Allergic/Immunologic ED: Denies mouth swelling, tongue swelling or urticaria EXAM Physical Exam Const Vital Signs: 11/02/20 13:20 11/02/20 13:50 Temperature 97.2 F L Temperature Source Temporal Pulse Rate 107 H 89 Respiratory Rate 18 16 Blood Pressure 136/78 H 125/86 H Blood Pressure Mean 97 99 Pulse Ox 99 97 Oxygen Delivery Method Room Air Room Air Positive well nourished and well developed General Appearance ED: well developed HEENT Reports normocephalic, head/scalp atraumatic, TM's clear and moist mucous membranes HEENT Narrative: Patient has tenderness on the right lower premolar. There is no focal decay. There is no significant gumline swelling. No trismus. Floor the mouth is soft. There is no facial swelling or erythema noted Tympanic Membrane ED: Yes TM's clear Mouth ED: Yes salivary gland normal Mouth: salivary gland normal Throat: posterior oropharynx normal Eyes PERRL and EOMs intact bilaterally Neck no lymphadenopathy, supple and no JVD Resp normal respiratory effort and clear to auscultation bilaterally Cardio regular rate, regular rhythm and no murmurs GI normal to inspection, nondistended, normoactive bowel sounds and non-tender Palpation: soft Back/Spine no CVA tenderness and normal ROM Extremity normal to inspection General Extremety ED: Negative for edema General Extremity: Negative for edema Neuro oriented x3 and CN's II-XII intact bilaterally Sensorium / Orientation: alert Motor Exam: strength 5/5 throughout Psych mental status grossly normal Mood & Affect: Negative for depressed or tearful Skin no rashes or lesions noted and no wounds MDM MDM MDM Narrative Medical decision making narrative: Well right to have the patient some penicillin and naproxen she needs to see dentistry. At the time of discharge the patient states that she cannot take the naproxen because she is taking meloxicam so I canceled that. Nursing went to discharge her and the patient started yelling expletives I would encourage the reader of this note to please read the excellent nursing dictation that describes there encounter with the patient. Discharge Plan Triage Chief Complaint: Dental ED Provider: Francesco Mason Dx/Rx/DC Orders Clinical Impression: Pain, dental Instructions: ED Dental Cavity Prescriptions: New penicillin V potassium 250 MG tablet 500 mg PO 4X/DAY Qty: 28 RF: 0 No Action norgestimate-ethinyl estradiol [Kelley] 0.25-35 mg-mcg tablet 1 tab PO DAILY RF: 0 meloxicam 15 mg Tablet 15 mg PO DAILY RF: 0 Primary Care Provider: Yovani Ramsey Referrals: Yovani Ramsey, [Primary Care Provider] - As Needed Activity Restrictions/Additional Instructions: You need to see a dentist as soon as possible Disposition Disposition: Home, Self Care
--- NOTE | 2020-11-02 14:36 | ED.RN ---
This RN back to discharge pt. Pt states she is unable to take naprosyn because she is on Meloxicam. Pt also requesting to see another physician. This RN notified physician and rn charge. Pt to just take antibiotics and continue her current meloxicam. Pt becomes very angry. Pt states she has not followed up with a dentist. States she cannot get to [place] to see a dentist. This RN offers pt suggestions such as Sil Frank. Pt states NO. Pt then begins yelling, stating the following This place is ridiculous and that Doctor is a donald martinez. Pt storms down the [address] towards the exit [facility] stupid donald martinez of a doctor. Pt discharged
== END 2020-11-02 14:44 | disposition home or self-care (01) ==
PROVIDERS: Emergency Provider Emergency Medicine; PCP Family Medicine
DX: K08.89 Other specified disorders of teeth and supporting structures (principal); F17.210 Nicotine dependence, cigarettes, uncomplicated
CPT/HCPCS: 99282

== ENCOUNTER 2020-11-10 17:56 | Emergency (ER) | payer MEDICAID, SELFPAY ==
[2020-11-10 17:57] VITALS: BP 146/88; PULSE 116; RESP 18; TEMP 36.3; O2SAT 98; BMI 35.7
--- NOTE | 2020-11-10 18:00 | RAD_ITS ---
STUDY: X-RAY CHEST REASON FOR EXAM: Female, 25 years old. Cough. TECHNIQUE: PA and lateral views of the chest. COMPARISON: 08/25/2020 FINDINGS: The lungs are clear and expanded. There is no demonstrated pleural abnormality. Normal size heart. Normal mediastinum and aylin. Normal visualized pulmonary arteries. Normal visualized aortic arch and descending thoracic aorta. Stable fusion of the lumbar spine. Normal visualized ribs, clavicles, and shoulders. There is no demonstrated abnormality of the visualized soft tissue structures of the upper abdomen. RAD/Chest PA and Lateral IMPRESSION: No acute cardiopulmonary disease or major interval change. Electronically Signed: Felice Bradford DO at 18:22 EDT Tel [phone], Service support ,
[2020-11-10 18:45] VITALS: O2SAT 98
--- NOTE | 2020-11-10 19:32 | EDS_ITS ---
HPI History of Present Illness Chief Complaint: Cough Narrative Narrative: Patient presents with cough that is nonproductive, congestion, rhinorrhea for the past 2 days she has decreased p.o. intake but she has no loss of smell or taste. No fevers. No myalgias. No weakness. She thinks she may have been in contact with a Covid patient. No chest pain or pleuritic component no shortness of breath. [facility] Medical History (Updated 11/10/20 @ 19:[address] Boris Palacios MD) Asthma Back pain Headache Knee pain Neck pain Home Medications norgestimate 0.25 mg-ethinyl estradiol 35 mcg tablet 1 tab PO DAILY 10/24/20 [History Last Taken Unknown] meloxicam 15 mg PO DAILY 11/02/20 [History Last Taken Unknown] Allergy/AdvReac Type Severity Reaction Status Date / Time tramadol Allergy Anaphylaxis Verified 11/10/20 17:58 Family History Other Diabetes Low blood sugar Surgical History History of back surgery Social History Smoking Status: Current every day smoker tobacco type: cigarettes Tobacco: How many years used: 7 substance use type: does not use ROS ROS ED ROS Narrative Past medical history: None Medications: Reviewed Social history: Noncontributory Review of systems: All systems negative except as indicated General: No fever Eyes: No visual changes Head: Slight headache. ENT: Upper airway congestion Neck: No neck pain Cardiovascular: No chest pain Respiratory: No shortness of breath. There is a nonproductive cough. Gastrointestinal: No abdominal pain, nausea vomiting or diarrhea Genitourinary: No dysuria Musculoskeletal: Denies myalgias no difficulty with ambulation Skin: No rash Neurological: No memory loss, confusion or any focal weakness Psych: No recent behavioral changes Hematologic: No easy bleeding or easy bruising EXAM Physical Exam Narrative Exam Narrative: Physical exam General: Well nourished, Well developed, No Acute Distress Head: Normocephalic, Atraumatic Eyes: Conjunctiva not pale ENT: Moist mucous membranes, there is upper airway congestion rhinorrhea and slightly swollen nasal turbinates. There is postnasal drip without any exud ates, normal soft palate. Normal voice. Neck: Supple, Nontender, No lymphadenopathy Cardiovascular: Regular rate, Regular rhythm Respiratory: No distress, CTA bilaterally Abdomen: Soft, Nontender, Nondistended Back: Nontender, Normal Inspection. Negative for: CVA tenderness Extremities: Nontender, No edema Skin: Normal color, No rash Neurological: Alert, Normal Strength, Normal Sensation Psychological: Normal affect Const Vital Signs: 11/10/20 17:57 11/10/20 18:45 Temperature 97.3 F L Temperature Source Temporal Pulse Rate 116 H Respiratory Rate 18 Respiratory Effort Short of Breath Respiratory Depth Normal Respiratory Pattern Normal Blood Pressure 146/88 H Blood Pressure Mean 107 Pulse Ox 98 Oxygen Delivery Method Room Air Room Air MDM MDM MDM Narrative Medical decision making narrative: Patient has an upper respiratory infection. It is likely viral. I will test her for Covid. Chest x-ray is normal. I will discharge her in stable condition with instructions to quarantine until the test is back. Radiography Diagnostic Testing: Radiology Impression Chest X-Ray 11/10/20 18:00 IMPRESSION: No acute cardiopulmonary disease or major interval change. Electronically Signed: Felice Bradford DO at 18:22 EDT Tel [phone], Service support , Discharge Plan Triage Chief Complaint: Cough ED Provider: Boris Palacios Dx/Rx/DC Orders Clinical Impression: Acute upper respiratory infection Instructions: ED URI, Viral, No Abx (Adult) Prescriptions: No Action norgestimate-ethinyl estradiol [Kelley] 0.25-35 mg-mcg tablet 1 tab PO DAILY RF: 0 meloxicam 15 mg Tablet 15 mg PO DAILY RF: 0 Primary Care Provider: Yovani Ramsey Referrals: Yovani Ramsey DO [Primary Care Provider] - Disposition Disposition: Home, Self Care
[2020-11-10] MEDS: Acetaminophen 500 MG Tablet 1000 MG PO (19:54)
== END 2020-11-10 20:02 | disposition home or self-care (01) ==
LOC: ED 19:58
PROVIDERS: Emergency Provider Emergency Medicine; PCP Family Medicine
DX: J06.9 Acute upper respiratory infection, unspecified (principal); F17.210 Nicotine dependence, cigarettes, uncomplicated; Z79.899 Other long term (current) drug therapy
CPT/HCPCS: 71046; 87426; 99283

== ENCOUNTER → 2020-11-23 16:31 | Outpatient (CLI) | payer MEDICAID, SELFPAY | PROVIDERS: PCP Family Medicine; Visit Provider Physician Assistant | DX: R43.2 Parageusia (principal); R43.0 Anosmia | CPT/HCPCS: 87635; U0005; U0003 ==

== ENCOUNTER 2020-11-28 18:34 | Emergency (ER) | payer MEDICAID, SELFPAY ==
[2020-11-28 18:34] VITALS: BP 134/100; PULSE 114; RESP 16; TEMP 36.6; O2SAT 95; BMI 35.7
== END 2020-11-28 19:44 | disposition left against medical advice (07) ==
LOC: ED 19:55
PROVIDERS: PCP Family Medicine
DX: Z53.21 Procedure and treatment not carried out due to patient leaving prior to being seen by health care provider (principal)

== ENCOUNTER → 2020-12-01 11:57 | Outpatient (CLI) | payer MEDICAID, SELFPAY | PROVIDERS: PCP Family Medicine; Referring Provider Physician Assistant; Visit Provider Physician Assistant | DX: Z11.52 Encounter for screening for COVID-19 (principal) | CPT/HCPCS: 87635; U0005; U0003 ==

== ENCOUNTER 2020-12-29 20:13 | Emergency (ER) | payer MEDICAID, SELFPAY ==
[2020-12-29 20:14] VITALS: BP 170/116; PULSE 122; RESP 8; TEMP 36.4; O2SAT 99; BMI 36.9
--- NOTE | 2020-12-29 20:56 | ED.VIS.DENTA ---
HPI History of Present Illness Chief Complaint: Dental Informant: patient Onset/Context/Timing Onset: Days Context: Gradual Onset Current Severity: Moderate Maximum Severity: Moderate Narrative Narrative: Patient presents with her to right lower dental pain. Patient states that she is had problems with this tooth for quite some time. She finished a course of penicillin about 1 or 2 weeks ago. She states her dental pain was improved but not completely resolved. She cannot see her dentist until the infection is completely resolved. Several days ago she was eating some pistachios and excellently bit down on this tooth. Since that time she had increased pain. She did note a small abscess along the outer gums. She states she is been taking Tylenol and ibuprofen for pain. [facility] Medical History Asthma Back pain Encounter for screening for COVID-19 Headache Knee pain Neck pain Home Medications norgestimate 0.25 mg-ethinyl estradiol 35 mcg tablet 1 tab PO DAILY 10/24/20 [History Last Taken Unknown] meloxicam 15 mg PO DAILY 11/02/20 [History Last Taken Unknown] clindamycin HCl 300 mg PO 4X/DAY #80 cap 12/29/20 [Rx Last Taken Unknown] naproxen [Naprosyn] 500 mg PO BID PRN #20 tab 12/29/20 [Rx Last Taken Unknown] Allergy/AdvReac Type Severity Reaction Status Date / Time tramadol Allergy Anaphylaxis Verified 12/29/20 20:22 Family History Other Diabetes Low blood sugar Surgical History History of back surgery Social History Smoking Status: Current every day smoker tobacco type: cigarettes Tobacco: How many years used: 7 substance use type: does not use ROS ROS ED Constitutional Constitutional ED: Denies chills or fever(s) Eyes Eyes: Denies change in vision ENT ENT ED: Reports other Details: Right lower dental pain ; Denies sore throat Cardiovascular Cardiovascular: Denies chest pain Respiratory/Chest Respiratory/Chest: Denies cough or dyspnea Gastrointestinal Gastrointestinal: Denies abdominal pain, diarrhea, nausea or vomiting Genitourinary Genitourinary ED: Denies dysuria Musculoskeletal Musculoskeletal: Denies back pain Integumentary Denies rash Neurologic Neurologic: Denies headache(s) or weakness Allergic/Immunologic Allergic/Immunologic ED: Denies urticaria EXAM Physical Exam Const Vital Signs: 12/29/20 20:14 Temperature 97.5 F L Temperature Source Temporal Pulse Rate 122 H Respiratory Rate 8 L Blood Pressure 170/116 H Blood Pressure Mean 134 Pulse Ox 99 Oxygen Delivery Method Room Air Positive well nourished and well developed General Appearance ED: well developed HEENT Reports TM's clear HEENT Narrative: Mild tenderness to the right mandibular second premolar. A small, 3 mm, abscess noted on the outer gums. No trismus. No sublingual fullness or evidence of Travis's. No facial edema or erythema. Tympanic Membrane ED: Yes TM's clear Eyes PERRL and EOMs intact bilaterally Neck no lymphadenopathy and supple Chest Wall inspection of chest normal and palpation of chest normal Resp normal respiratory effort and clear to auscultation bilaterally Cardio regular rhythm Rate: tachycardic GI normal to inspection, nondistended, normoactive bowel sounds Extremity normal to inspection Neuro oriented x3 Sensorium / Orientation: alert Psych mental status grossly normal Skin no rashes or lesions noted MDM MDM Treatment and Re-Evaluation Comments:: Patient given prescriptions for clindamycin and naproxen. She will follow up with her dentist as soon as possible. As advised by nursing staff after the patient was discharged that she was now requesting something stronger for pain than naproxen and wanted me to drain the abscess. I was in another procedure and advised the nurse to have her wait time is finished and I would go back and talk to her again. By the time my procedure was finished I was advised the patient had left the emergency room. Discharge Plan Triage Chief Complaint: Dental ED Provider: Lin Coates Dx/Rx/DC Orders Clinical Impression: Dental abscess Instructions: Dental Abscess Prescriptions: New clindamycin HCl 150 MG capsule 300 mg PO 4X/DAY Qty: 80 RF: 0 naproxen [Naprosyn] 500 mg tablet 500 mg PO BID PRN (Reason: pain) Qty: 20 RF: 0 No Action norgestimate-ethinyl estradiol [Kelley] 0.25-35 mg-mcg tablet 1 tab PO DAILY RF: 0 meloxicam 15 mg Tablet 15 mg PO DAILY RF: 0 Primary Care Provider: Yovani Ramsey Referrals: Yovani Ramsey DO [Primary Care Provider] - Activity Restrictions/Additional Instructions: Follow-up with your dentist as soon as possible. Do not take Mobic and naproxen together. You can take 1 or the other. Disposition Disposition: Home, Self Care Discharge Date/Time: 12/29/20 21:12
[2020-12-29] MEDS: Clindamycin HCl 150 MG Capsule 300 MG PO (21:11)
[2020-12-29] MEDS: Naproxen 500 MG Tablet PO (21:11)
== END 2020-12-29 21:12 | disposition home or self-care (01) ==
LOC: ED 21:00
PROVIDERS: Emergency Provider Emergency Medicine; PCP Family Medicine
DX: K04.7 Periapical abscess without sinus (principal); F17.210 Nicotine dependence, cigarettes, uncomplicated
CPT/HCPCS: 99282

== ENCOUNTER 2021-04-10 13:20 | Outpatient (CLI) | payer MEDICAID, SELFPAY ==
[2021-04-10 13:41] LABS: Lipase 106 U/L (73-393)
== END 2021-04-10 23:59 | disposition short-term general hospital (02) ==
LOC: LABSPEC 13:23
PROVIDERS: PCP Family Medicine; Visit Provider Emergency Medicine
DX: R10.13 Epigastric pain (principal)
CPT/HCPCS: 83690

== ENCOUNTER 2021-05-22 14:55 | Outpatient (CLI) | payer MEDICAID, SELFPAY | END 2021-05-22 23:59 | disposition home or self-care (01) | PROVIDERS: PCP Family Medicine; Visit Provider Obstetrics & Gynecology | DX: L29.2 Pruritus vulvae (principal) ==

== ENCOUNTER 2021-06-16 12:05 | Outpatient (CLI) | payer MEDICAID, SELFPAY | END 2021-06-16 23:59 | disposition home or self-care (01) | LOC: LABSPEC 12:06 | PROVIDERS: PCP Family Medicine; Visit Provider Student in an Organized Health Care Education/Training Program | DX: R30.0 Dysuria (principal) | CPT/HCPCS: 87077; 87086; 87088; 87186 ==

== ENCOUNTER 2021-06-28 10:45 | Emergency (ER) | payer MEDICAID, SELFPAY ==
[2021-06-28 10:47] VITALS: BP 122/87; PULSE 122; RESP 14; TEMP 36.8; O2SAT 97; BMI 38.1
--- NOTE | 2021-06-28 11:05 | ED.VIS.FEGU ---
HPI HPI - Female History of Present Illness Chief Complaint: Complaint Narrative Narrative: Patient presents with UTI symptoms that she has had essentially for the last 1 to 2 months. She states she was seen at [facility] where they did a urinalysis and urine culture. She was on antibiotics. Afterwards, her symptoms of urinary frequency and pain returned and she went saw her [employer]. Urinalysis and urine culture was also performed, and she was written a prescription for Bactrim for 3 days, to take orally twice a day. However, she took 1 tablet once a day for 6 days instead. Her symptoms had resolved until Saturday, 2 days ago. She began having urinary frequency consistent with a UTI. She has urgency and states she almost urinates on herself because she has to go very frequently. This morning when she awoke she is having burning with urination stating that it feels like fire. She denies any vaginal discharge. She was told to avoid soda by her [employer], and her last intercourse with her single partner was a week ago Saturday, over 10 days ago. She states that she urinates after intercourse and cleanses the vaginal area. She presents because she is having symptoms again of a UTI. She denies any fevers or chills. No back pain. No other symptoms. No exacerbating or alleviating factors. [facility] Medical History Asthma Back pain Encounter for screening for COVID-19 Headache Knee pain Neck pain Home Medications norgestimate 0.25 mg-ethinyl estradiol 35 mcg tablet 1 tab PO DAILY 10/24/20 [History Last Taken Unknown] meloxicam 15 mg PO DAILY 11/02/20 [History Last Taken Unknown] clindamycin HCl 300 mg PO 4X/DAY #80 cap 12/29/20 [Rx Last Taken Unknown] naproxen [Naprosyn] 500 mg PO BID PRN #20 tab 12/29/20 [Rx Last Taken Unknown] phenazopyridine [Pyridium] 200 mg PO TID #10 tab 06/28/21 [Rx Last Taken Unknown] sulfamethoxazole-trimethoprim [Bactrim DS] 1 tab PO BID #14 tab 06/28/21 [Rx Last Taken Unknown] Allergy/AdvReac Type Severity Reaction Status Date / Time tramadol Allergy Anaphylaxis Verified 06/28/21 10:49 Family History Other Diabetes Low blood sugar Surgical History History of back surgery Social History Smoking Status: Current every day smoker tobacco type: cigarettes Tobacco: How many years used: 7 substance use type: does not use ROS ROS ED ROS Narrative Constitutional: No fever, no chills. HEENT: No sore throat. No neck pain. No loss of vision. No rhinorrhea. Cardiovascular: No chest pain. No palpitations. No pedal edema. Respiratory: No cough, no shortness of breath. Abdominal: No abdominal pain. No nausea. No vomiting. Genitourinary: Positive urinary frequency and urgency, positive burning with urination/dysuria. No hematuria. No vaginal discharge or bleeding. Musculoskeletal: No myalgias. No arthralgias. Neurologic: No headaches. No dizziness. No lightheadedness. Skin: No rash. No change in color. Psychiatric: No depression. No anxiety. EXAM Physical Exam Narrative Exam Narrative: Afebrile. Vital signs noted. HEENT: Normocephalic. Atraumatic. PERRL, EOMI. Neck soft and supple. No point tenderness or step off. Cardiovascular: Regular rate and rhythm with intermittent tachycardia. No murmurs, rubs, or gallops appreciated. Respiratory: No tachypnea. Lungs clear to auscultation bilaterally. Gastrointestinal: Abdomen soft, nontender, with normoactive bowel sounds. No rebound or guarding. No CVA tenderness to percussion bilaterally. Neurological: Awake. Alert. Nonfocal, nonlateralizing. Skin: No rash. Normal color. No pallor. Musculoskeletal: No pedal edema. Full range of motion extremities. Const Vital Signs: 06/28/21 10:47 Temperature 98.2 F Temperature Source Temporal Pulse Rate 122 H Respiratory Rate 14 Blood Pressure 122/87 H Blood Pressure Mean 98 Pulse Ox 97 Oxygen Delivery Method Room Air MDM MDM MDM Narrative Medical decision making narrative: I had a lengthy discussion with the patient. Given her frequent UTIs, she may need follow-up with urogynecology/Dr. Fan. She was told to take her antibiotics as directed in the future. I will obtain a urinalysis, urine culture, and urine test. Her urinalysis shows greater than 100 WBCs and negative nitrites with 500 leukocyte esterase. Urine test is negative. At this point in time, she was written prescriptions for Bactrim DS to take twice a day for the next 7 days, and Pyridium 200 mg 3 times a day for the next 3 days. She will follow up with her [employer] and/or Dr. Fan regarding her frequent UTIs. Return instructions were reviewed. Disposition is discharged home in stable condition. Lab Data Attestation: I reviewed the patient's lab results. Labs: Laboratory Results - last 24 hr 06/28/21 06/28/21 11:05 11:05 Urine Color Yellow Urine Clarity Sl. Cloudy Urine pH 6.0 Ur Specific [place] 1.015 Urine Protein 30 H Urine Glucose (UA) Normal Urine Ketones Negative Urine Occult Blood 150 H Urine Nitrite Negative Urine Bilirubin Negative Urine Urobilinogen Normal Ur Leukocyte Esterase 500 H Urine RBC 0 SEEN Urine WBC >100 SEEN Ur Squamous Epith Cells 0 SEEN Urine Bacteria 1+ Urine Mucus 0 SEEN Urine Test Cancelled Negative Discharge Plan Triage Chief Complaint: Complaint ED Provider: Zev Tate Dx/Rx/DC Orders Clinical Impression: Recurrent UTI, Urinary frequency Instructions: Urinary Tract Infections in Women, ED CYSTITIS Female Adult Prescriptions: New sulfamethoxazole-trimethoprim [Bactrim DS] 800-160 mg tablet 1 tab PO BID Qty: 14 RF: 0 phenazopyridine [Pyridium] 200 mg tablet 200 mg PO TID Qty: 10 RF: 0 No Action norgestimate-ethinyl estradiol [Kelley] 0.25-35 mg-mcg tablet 1 tab PO DAILY RF: 0 meloxicam 15 mg Tablet 15 mg PO DAILY RF: 0 clindamycin HCl 150 MG capsule 300 mg PO 4X/DAY Qty: 80 RF: 0 naproxen [Naprosyn] 500 mg tablet 500 mg PO BID PRN (Reason: pain) Qty: 20 RF: 0 Primary Care Provider: Yovani Ramsey Referrals: Mary Fan MD [STAFF PHYSICIAN] - As Needed Yovani Ramsey DO [Primary Care Provider] - Activity Restrictions/Additional Instructions: Take your antibiotics as directed. Follow-up with your [employer] as needed. Disposition Disposition: Home, Self Care
[2021-06-28 11:15] LABS: Mucous, Urine 0 SEEN /hpf (<or=2+); Red Blood Cells-Urine 0 SEEN /hpf (0-5); Squamous Epithelial Cells - UA 0 SEEN /hpf (5-10)
[2021-06-28 11:19] LABS: Color, Urine Yellow (Yellow); Glucose, Dipstick Normal (Normal); Ketone-Dipstick Negative (Negative); Leukocyte Esterase-Dipstick 500 /ul (Negative); Nitrite-Dipstick Negative (Negative); Occult Blood-Urine 150 /ul (Negative); Protein-Dipstick 30 mg/dl (Negative); Specific Gravity, Urine 1.015 (1.002-1.030); Urine Bilirubin Dipstick Negative (Negative); Urine Clarity Sl. Cloudy (Clear); Urine Urobilinogen Normal (Normal)
[2021-06-28 11:26] LABS: White Blood Cells >100 SEEN /hpf (0-5)
[2021-06-28 11:27] LABS: Bacteria 1+ /hpf (None Seen)
[2021-06-28 11:32] LABS: Internal QC Validated? YES +Cl - CLEAR BKGD; Pregnancy, Urine Negative Negative
[2021-06-28 11:57] VITALS: PULSE 85; RESP 16; O2SAT 98
== END 2021-06-28 12:02 | disposition home or self-care (01) ==
PROVIDERS: Emergency Provider Emergency Medicine; PCP Family Medicine; Visit Provider Emergency Medicine
DX: N39.0 Urinary tract infection, site not specified (principal); R35.0 Frequency of micturition; F17.210 Nicotine dependence, cigarettes, uncomplicated
CPT/HCPCS: 81001; 81025; 87077; 87086; 87088; 87186; 99282

== ENCOUNTER 2021-07-30 20:40 | Emergency (ER) | payer MEDICAID, SELFPAY ==
[2021-07-30 20:41] VITALS: BP 128/98; PULSE 88; RESP 16; TEMP 36.6; O2SAT 98; BMI 38.2
--- NOTE | 2021-07-30 22:02 | EX.ED.DYSGE1 ---
HPI History of Present Illness Chief Complaint: Wound Check Informant: patient Narrative Narrative: Patient presents with developing redness around the tattoo that she had on Saturday. She has no systemic symptoms such as fevers chills nausea vomiting. However she has multiple tattoos and has not developed this redness in the past. No other complaints. Nothing makes it better or worse. PFSH PFSH Medical History Asthma Back pain Encounter for screening for COVID-19 Headache Knee pain Neck pain Home Medications NK 07/30/21 [History Last Taken Unknown] cephalexin 500 mg PO Q6 #28 cap 07/30/21 [Rx Last Taken Unknown] Allergy/AdvReac Type Severity Reaction Status Date / Time tramadol Allergy Anaphylaxis Verified 07/30/21 20:44 Family History Other Diabetes Low blood sugar Surgical History History of back surgery Social History Smoking Status: Current every day smoker tobacco type: cigarettes Tobacco: How many years used: 7 substance use type: does not use ROS ROS ED Constitutional Constitutional ED: Denies chills or fever(s) Respiratory/Chest Respiratory/Chest: Denies dyspnea Gastrointestinal Gastrointestinal: Denies nausea or vomiting Integumentary Reports rash Allergic/Immunologic Allergic/Immunologic ED: Denies urticaria EXAM Physical Exam Const Vital Signs: 07/30/21 20:41 Temperature 97.9 F Temperature Source Temporal Pulse Rate 88 Respiratory Rate 16 Blood Pressure 128/98 H Blood Pressure Mean 108 Pulse Ox 98 Oxygen Delivery Method Room Air Positive well nourished and well developed General Appearance ED: well developed and NAD HEENT Reports moist mucous membranes Eyes General Eye ED: Negative for pale conjunctiva or scleral icterus Resp normal respiratory effort Cardio regular rate and regular rhythm Extremity Negative for normal to inspection Extremity Narrative: Patient has a tattoo on the right forearm overlying the area of the radius. There is some diffuse erythema around this. There is a little bit of pointing proximally although its not streaking all the way up the arm. The area is red it is slightly warm. It is slightly tender. It is not grouped around any specific color in the tattoo it is diffuse. No proximal lymph nodes. Neuro Sensorium / Orientation: alert Skin Skin Narrative: See above. MDM MDM MDM Narrative Medical decision making narrative: I explained to the patient is difficult to tell if she is having a mild allergic versus infectious reaction. But she developed this after about 2 and half days not immediately. It is also pointing proximally. This leads me to think this may be infectious. We will cover her with Keflex at this time. We discussed reasons to return and local care. Discharge Plan Triage Chief Complaint: Wound Check ED Provider: Jose Martin Hernández Dx/Rx/DC Orders Clinical Impression: Cellulitis of arm, right, Tattoo reaction Instructions: ED Wound Check (Infection) Prescriptions: New cephalexin [cephalexin] 500 MG capsule 500 mg PO Q6 Qty: 28 RF: 0 No Action NK RF: 0 Primary Care Provider: Yovani Ramsey Referrals: Yovani Ramsey, DO [Primary Care Provider] - 3-5 Days if not improving Disposition Disposition: Home, Self Care
[2021-07-30] MEDS: Cephalexin 250 MG Capsule 500 MG PO (22:20)
== END 2021-07-30 22:21 | disposition home or self-care (01) ==
PROVIDERS: Emergency Provider Emergency Medicine; PCP Family Medicine; Visit Provider Emergency Medicine
DX: L03.113 Cellulitis of right upper limb (principal); F17.210 Nicotine dependence, cigarettes, uncomplicated
CPT/HCPCS: 99283

== ENCOUNTER 2022-02-15 05:51 | Emergency (ER) | payer MEDICAID, SELFPAY ==
[2022-02-15 05:53] VITALS: BP 148/91; PULSE 100; RESP 18; TEMP 36.6; O2SAT 98; BMI 39.9
--- NOTE | 2022-02-15 06:02 | RAD_ITS ---
STUDY: X-RAY CHEST REASON FOR EXAM: Female, 26 years old. cough TECHNIQUE: PA and lateral. COMPARISON: 11/10/2020. FINDINGS: LUNGS: No consolidation. No pneumothorax. MEDIASTINUM: Unremarkable. CARDIAC SILHOUETTE: Not enlarged. BONES AND SOFT TISSUES: Surgical hardware spinal fixation rods with scoliosis unchanged. RAD/Chest PA and Lateral IMPRESSION: No evidence of active intrathoracic disease. Electronically Signed: Dipti Thapa MD at 6:43 EST ,
--- NOTE | 2022-02-15 06:02 | EKG12_ITS ---
Test Reason : GEN ILLNESS Blood Pressure : / mmHG Vent. Rate : 083 BPM Atrial Rate : 083 BPM P-R Int : 176 ms QRS Dur : 078 ms QT Int : 378 ms P-R-T Axes : 041 043 027 degrees QTc Int : 444 ms Normal sinus rhythm Low voltage QRS Confirmed by CRIS RIBERA, OG ([id number]), assistant editor DELON ORTA ([id number]) on 02/15/2022 1:57:54 PM Referred By: LORNA Confirmed By:OG LYNCH MD
--- NOTE | 2022-02-15 06:03 | EX.ED.DYSGE1 ---
HPI History of Present Illness Chief Complaint: General Illness Informant: patient Narrative Narrative: Persistent cough for the past week mild productive sputum. No fevers. Last 3 days left-sided chest discomfort. No wheezing. History of childhood asthma. Tobacco history. COVID infection a year ago still recovering from taste and smell. No vomiting no diarrhea. Use [id number] medications. Prior similar symptoms: Yes PFSH PFSH Medical History Asthma Back pain Encounter for screening for COVID-19 Headache Knee pain Neck pain Home Medications NK 07/30/21 [History Last Taken Unknown] Allergy/AdvReac Type Severity Reaction Status Date / Time tramadol Allergy Anaphylaxis Verified 02/15/22 05:56 Family History Other Diabetes Low blood sugar Surgical History History of back surgery Social History Smoking Status: Current every day smoker tobacco type: cigarettes Tobacco: How many years used: 7 substance use type: does not use ROS ROS ED Constitutional Constitutional ED: Denies chills, fever(s) or sweats Eyes Eyes: Denies change in vision ENT ENT ED: Denies dysphagia or sore throat Cardiovascular Cardiovascular: Denies chest pain, leg edema, palpitations or racing heartbeat Respiratory/Chest Respiratory/Chest: Reports cough; Denies dyspnea or dyspnea on exertion Gastrointestinal Gastrointestinal: Denies abdominal pain, diarrhea, nausea or vomiting Genitourinary Genitourinary ED: Denies dysuria, hematuria or urinary frequency Musculoskeletal Musculoskeletal: Denies back pain, extremity pain or neck pain Integumentary Denies rash or wounds Neurologic Neurologic: Denies headache(s), paresthesias or weakness EXAM Physical Exam Const Vital Signs: 02/15/22 05:53 Temperature 97.9 F Temperature Source Temporal Pulse Rate 100 Respiratory Rate 18 Blood Pressure 148/91 H Blood Pressure Mean 110 Pulse Ox 98 Oxygen Delivery Method Room Air Positive well nourished and well developed General Appearance ED: well developed and NAD HEENT Reports TM's clear and moist mucous membranes HEENT Narrative: TMs normal bilaterally. No posterior pharyngeal erythema. 1+ symmetric tonsils uvula midline no exudates. Airway patent. normocephalic and atraumatic Tympanic Membrane ED: Yes TM's clear Eyes PERRL, EOMs intact bilaterally and conjunctivae normal General Eye ED: Yes normal appearance of both eyes Neck no lymphadenopathy and supple General: Negative for tenderness Chest Wall Chest: Negative for tenderness Resp normal respiratory effort and normal air movement Effort and Inspection: symmetric chest movement; Negative for respiratory distress Cardio regular rate, regular rhythm and no murmurs Peripheral Pulses: pulses 2+ throughout GI normal to inspection, nondistended, normoactive bowel sounds and non-tender Palpation: Negative for guarding or rebound tenderness present Back/Spine no CVA tenderness and no thoracic nor lumbar tenderness Extremity normal to inspection General Extremety ED: Negative for edema or tenderness General Extremity: Negative for edema Neuro oriented x3 and no sensory deficits noted Sensorium / Orientation: awake and alert Skin no rashes or lesions noted and no wounds MDM MDM MDM Narrative Medical decision making narrative: Patient vital signs stable nontoxic. Normal lung sounds. Reports chest discomfort EKG is normal. Two-view chest x-ray reviewed by myself shows no infiltrate. She had a chronic left-sided L1 screw fracture. Reports told by her original surgeon and others that not likely removal unless significant symptoms. Discussed adjunct therapies for her cough. Tobacco cessation discussed. She will follow-up with her PCP. Return precautions. All questions were answered. EKG Initial EKG: Attestation: I personally reviewed and interpreted this EKG as follows: Comments: Sinus rate of 83, no ST or T wave changes. 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 Noted previous L1 hardware fracture. Use humidifier and vapor rubs to help with symptoms. Try to quit smoking. Follow-up with your doctor. Return if any worsening symptoms. Disposition Disposition: Home, Self Care
[2022-02-15 06:36] VITALS: PULSE 82; RESP 18; O2SAT 99
== END 2022-02-15 06:36 | disposition home or self-care (01) ==
PROVIDERS: Emergency Provider Emergency Medicine; PCP Family Medicine; Visit Provider Emergency Medicine
DX: B34.9 Viral infection, unspecified (principal); F17.210 Nicotine dependence, cigarettes, uncomplicated; Z86.16 Personal history of COVID-19
CPT/HCPCS: 71046; 99282; 93005

== ENCOUNTER 2022-02-15 16:09 | Outpatient (CLI) | payer MEDICAID, SELFPAY ==
[2022-02-15 17:02] LABS: Absolute Lymphocyte Count 2.37 X10^3/uL (0.83-4.51); Absolute Neutrophil Count 3.6 X10^3/uL (2.0-7.7); Basophil# 0.05 X10^3/uL; Basophil% 0.8 % (0-1); Eosinophil# 0.17 X10^3/uL; Eosinophils% 2.6 % (0-5); Hematocrit 42.8 % (37-47); Lymphocyte # 2.37 X10^3/ul (0.83-4.51); Lymphocyte % 36.2 % (19-41); Mean Corp Hgb Conc 32.7 g/dL (32-36); Mean Corpuscular Hgb 29.9 pg (27.0-32.0); Mean Corpuscular Volume 91.3 fL (81-99); Monocyte# 0.39 X10^3/uL; NRBC Flagged by Analyzer 0 % (0-5); Neutrophil # 3.55 X10^3/uL (2.7-7.7); Neutrophil % 54.1 % (47-70); Platelet Count 276 K/mm3 (150-450); RBC Distribution Width CV 12.8 % (11.6-14.6); RBC Distribution Width SD 42.3 fl (35.1-43.9); Red Blood Count 4.69 M/mm3 (4.2-5.4); White Blood Count 6.6 K/mm3 (4.4-11.0)
[2022-02-15 19:04] LABS: Estradiol 59.3 pg/mL; Follicle Stimulating Hormone 4.3 mIU/mL; Luteinizing Hormone 9.1 mIU/mL; T4 Free Direct 1.14 ng/dL (0.76-1.46)
[2022-02-27 12:08] LABS: Testosterone, Free 2.64 ng/dL (0.10-0.85); Testosterone, Total 79 ng/dL (13-71)
[2022-02-27 15:05] LABS: Testosterone, % Free 3.34 % (0.50-2.80)
== END 2022-02-15 23:59 | disposition home or self-care (01) ==
LOC: WOBLAB 16:10
PROVIDERS: PCP Family Medicine; Visit Provider Obstetrics & Gynecology
DX: Z01.419 Encounter for gynecological examination (general) (routine) without abnormal findings (principal); B34.9 Viral infection, unspecified; F17.210 Nicotine dependence, cigarettes, uncomplicated; Z86.16 Personal history of COVID-19
CPT/HCPCS: 36415; 71046; 82670; 83001; 83002; 84402; 84403; 84439; 84443; 85025; 93005; 99282

== ENCOUNTER 2022-04-22 11:04 | Emergency (ER) | payer MEDICAID, SELFPAY ==
[2022-04-22 11:05] VITALS: BP 124/78; PULSE 78; RESP 16; TEMP 36.3; O2SAT 99; BMI 38.2
--- NOTE | 2022-04-22 11:17 | EDS_ITS ---
HPI <ES Colón - Last Filed: 04/22/22 11:25> History of Present Illness Chief Complaint: Dental Narrative Narrative: 26-year-old female states for the last week her left lower gumline has been hurting and she noticed a white spot. She has been putting liquid Tylenol on the area. No fever chills or difficulty swallowing or breathing. PFSH <ES Colón - Last Filed: 04/22/22 11:25> PFSH Medical History Asthma Back pain Encounter for screening for COVID-19 Headache Knee pain Neck pain Home Medications ibuprofen 800 mg tablet 800 mg PO Q8H PRN pain 7 days #21 tabs 04/22/22 [Rx Last Taken Unknown] Allergy/AdvReac Type Severity Reaction Status Date / Time tramadol Allergy Anaphylaxis Verified 04/22/22 11:05 Family History Other Diabetes Low blood sugar Surgical History History of back surgery Social History Smoking Status: Current every day smoker tobacco type: cigarettes Tobacco: How many years used: 7 substance use type: does not use ROS <ES Colón - Last Filed: 04/22/22 11:25> ROS ED ROS Narrative Constitutional: Negative for fever, chills, malaise. ENT: Negative for sore throat, rhinorrhea. Respiratory: Negative for shortness of breath. GI: Negative for nausea, vomiting. Neuro: Negative for headache. Skin: Negative for rash, abscess, or wound. EXAM <ES Colón Last Filed: 04/22/22 11:25> Physical Exam Narrative Exam Narrative: CONST: Patient sitting in no acute distress. EYES: Normal inspection. ENT: Moist mucous membranes, left lower gumline has partially erupted wisdom tooth in the area of her pain. No tenderness of the rest of the teeth. No periapical abscess, sublingual space is soft, no trismus or tongue elevation, midline uvula and patent airway. NECK: Normal inspection. No submental or submandibular swelling, trachea midline. RESP: No respiratory distress, CTAB. CVS: Regular rate and rhythm, no murmur, no gallop. SKIN: Color normal, no rash, warm, dry, intact. EXTREMITIES: Normal appearance, no pedal edema. NEURO: Oriented x4. PSYCH: Normal affect. Const Vital Signs: 04/22/22 11:05 Temperature 97.4 F L Temperature Source Temporal Pulse Rate 78 Respiratory Rate 16 Blood Pressure 124/78 H Blood Pressure Mean 93 Pulse Ox 99 Oxygen Delivery Method Room Air <Dr. Lin Coates MD - Last Filed: 04/22/22 13:22> Physical Exam Const Vital Signs: 04/22/22 11:05 Temperature 97.4 F L Temperature Source Temporal Pulse Rate 78 Respiratory Rate 16 Blood Pressure 124/78 H Blood Pressure Mean 93 Pulse Ox 99 Oxygen Delivery Method Room Air [facility] <ES Colón - Last Filed: 04/22/22 11:25> [facility] Narrative Medical decision making narrative: Patient presents with dental pain. On exam her left lower wisdom tooth is partially erupted and impacted. This is the area of her pain. There is no evidence of periapical abscess or deep space infection so no indication for antibiotics or imaging. I prescribed ibuprofen she can take in addition to the Tylenol she is using and provided a dental referral sheet. She was discharged in stable condition. <Dr. Lin Coates MD - Last Filed: 04/22/22 13:22> [facility] Treatment and Re-Evaluation Narrative: Patient seen and evaluated with NANDO. I personally interviewed and examined the patient. I was involved in all aspects of patient's orders, interpretation of results, and treatment. Patient presents secondary to left-sided dental pain. She noted a white spot on her gums and was concerned about possible abscess. She states she is chronic dental pain on the right after losing a filling. Patient sitting upright in bed no acute distress. No facial edema or erythema. Patient speaks with a strong voice and is tolerating secretions well. Head and neck examination reveals emerging wisdom tooth to the left mandibular service. Minimal gum edema. Posterior pharynx exam is unremarkable. No significant cervical lymphadenopathy. Heart is regular rate and rhythm. Lung sounds are clear. Abdomen is soft and nontender. Patient will be treated with ibuprofen. She has been placing liquid Tylenol on the area of pain. I encouraged her to take oral Tylenol and use topical Orajel if needed. Dental referral list is given to her. Return instructions given. Discharge Plan Triage Chief Complaint: Dental ED Midlevel Provider: Jeanette Hoyt ED Provider: Lin Coates Dx/Rx/DC Orders Clinical Impression: Pain, dental Instructions: Understanding Impacted [place] Teeth, ED Dental Pain Prescriptions: New ibuprofen 800 mg tablet 800 mg PO Q8H PRN (Reason: pain) 7 Days Qty: 21 0RF Rx Instructions: take with food Primary Care Provider: Yovani Ramsey Referrals: Yovani Ramsey DO [Primary Care Provider] - Activity Restrictions/Additional Instructions: You have an impacted wisdom tooth. This needs surgical removal by a dentist. I prescribed ibuprofen for pain. You can also use the liquid Tylenol or take Tylenol 1000 mg every 6 hours as needed. Disposition Disposition: Home, Self Care Discharge Date/Time: 04/22/22 11:45
== END 2022-04-22 11:45 | disposition home or self-care (01) ==
PROVIDERS: Emergency Provider Emergency Medicine; PCP Family Medicine; Visit Provider Emergency Medicine
DX: K08.89 Other specified disorders of teeth and supporting structures (principal); F17.210 Nicotine dependence, cigarettes, uncomplicated
CPT/HCPCS: 99282

== ENCOUNTER 2022-06-12 10:58 | Emergency (ER) | payer MEDICAID, SELFPAY ==
[2022-06-12 10:59] VITALS: BP 133/92; PULSE 113; RESP 18; TEMP 35.7; O2SAT 97; BMI 36.2
[2022-06-12] MEDS: Ondansetron 4 MG/2 ML Vial IV (11:53)
[2022-06-12] MEDS: 0.9% Normal Saline 1,000 ML 1000 ML IV (11:53)
[2022-06-12 11:54] LABS: Absolute Lymphocyte Count 1.83 X10^3/uL (0.83-4.51); Absolute Neutrophil Count 8.9 X10^3/uL (2.0-7.7); Basophil# 0.04 X10^3/uL; Basophil% 0.3 % (0-1); Eosinophil# 0.16 X10^3/uL; Eosinophils% 1.4 % (0-5); Hematocrit 48.8 % (37-47); Hemoglobin 16.1 g/dL (12.0-15.0); Lymphocyte # 1.83 X10^3/ul (0.83-4.51); Lymphocyte % 15.7 % (19-41); Mean Corpuscular Hgb 30.3 pg (27.0-32.0); Mean Corpuscular Volume 91.9 fL (81-99); Mean Platelet Vol. 11.4 fl (6.2-12.0); Monocyte# 0.73 X10^3/uL; Monocyte% 6.2 % (0-10); NRBC Flagged by Analyzer 0 % (0-5); Neutrophil # 8.89 X10^3/uL (2.7-7.7); Neutrophil % 76.1 % (47-70); Platelet Count 228 K/mm3 (150-450); RBC Distribution Width CV 13.4 % (11.6-14.6); RBC Distribution Width SD 45.4 fl (35.1-43.9); Red Blood Count 5.31 M/mm3 (4.2-5.4); White Blood Count 11.7 K/mm3 (4.4-11.0)
[2022-06-12] MEDS: Dicyclomine 20 MG/2 ML Vial IM (11:54)
[2022-06-12 12:09] LABS: Internal QC Validated? YES +Cl - CLEAR BKGD; Pregnancy, Serum, hCG Quali. NEGATIVE Negative
[2022-06-12 12:10] LABS: AST(SGOT) 33 U/L (15-37); Alanine Aminotransfer ALT/SGPT 76 U/L (13-56); Albumin, Serum 3.5 g/dL (3.2-5.0); Alkaline Phosphatase 82 U/L (45-117); Anion Gap 5 (5-15); BUN 8 mg/dL (7-18); BUN/Creat Ratio 9.7 RATIO (10-20); Calcium,Total 9.2 mg/dL (8.5-10.1); Chloride 106 mmol/L (98-107); Creatinine, Serum 0.83 mg/dL (0.55-1.02); EST Glomerular Filtration Rate 89 mL/min (>60); Est Glom Filt Rate - Afr Amer 108 mL/min (>60); Estimated Creatinine Clearance 94.05 ml/min; Globulin 3.6 g/dL (2.2-4.2); Glucose 89 mg/dL (74-106); Lipase 68 U/L (73-393); Potassium 3.6 mmol/L (3.5-5.1); Protein, Total 7.1 g/dL (6.4-8.2); Sodium Level 137 mmol/L (136-145)
[2022-06-12 12:49] LABS: Mucous, Urine 0 SEEN /hpf (<or=2+); Red Blood Cells-Urine 0 SEEN /hpf (0-5)
[2022-06-12 12:58] LABS: Color, Urine Yellow (Yellow); Glucose, Dipstick Normal (Normal); Ketone-Dipstick 15 mg/dl (Negative); Leukocyte Esterase-Dipstick 500 /ul (Negative); Nitrite-Dipstick Negative (Negative); Occult Blood-Urine 50 /ul (Negative); Protein-Dipstick 15 mg/dl (Negative); Specific Gravity, Urine 1.015 (1.002-1.030); Urine Bilirubin Dipstick Negative (Negative); Urine Clarity Sl. Cloudy (Clear); Urine Urobilinogen 4 mg/dl (Normal)
[2022-06-12 13:05] LABS: Squamous Epithelial Cells - UA 10-25 SEEN /hpf (5-10)
[2022-06-12 13:06] LABS: Bacteria 2+ /hpf (None Seen); White Blood Cells 5-10 SEEN /hpf (0-5)
--- NOTE | 2022-06-12 14:34 | ED.RN ---
PT DEMANDING THAT IV BE TAKEN OUT. I DONT KNOW MY LABS OR URINE, IM JUST GONNA LEAVE. IV REMOVED, EXPLAINED THE IMPORTANCE OF HAVING A PCP AND FOLLOWING UP THE GI. GAVE HER DR. ESPINOSA'S NAME FOR PCP AND DR. WASHINGTON. EXPLAINED THAT THIS RN WAS NOT SURE IF SHE HAD TO HAVE A REFERRAL FOR DR. WASHINGTON OR NOT BUT AT LEAST GIVE THEM A CALL.
--- NOTE | 2022-06-12 14:41 | ED.VIS.GI ---
HPI HPI - GI History of Present Illness Chief Complaint: Nausea/Vomiting Narrative Narrative: 26-year-old female presents with nausea and vomiting, and epigastric abdominal pain. She states her symptoms began on the th of the month, approximately 2 weeks ago. She also relates history that she has been to multiple emergency department over the last few weeks for continued nausea and vomiting. Initially, she states she went to an outside facility where they performed a CT of the abdomen and pelvis and told her that she had a hernia. She received a medication, but returned because of the nausea and vomiting. She then states that she had an argument with the nurse practitioner, who told her that she did not have a hernia. Regardless, she states that a few days ago on Saturday, her symptoms began to recur where she was dry heaving. She went to another outside facility where they did not do anything. She feels that she is dehydrated. Additionally, she states that although they had prescribed Phenergan suppositories, she has not taking them because she had never been prescribed a medication that goes up my butt . She presents because of her continued nausea, vomiting, and dry heaving. She denies any fevers or chills. No exacerbating or alleviating factors. [facility] Medical History Asthma Back pain Encounter for screening for COVID-19 Headache Knee pain Neck pain Home Medications ibuprofen 800 mg tablet 800 mg PO Q8H PRN pain 7 days #21 tabs 04/22/22 [Rx Last Taken Unknown] Allergy/AdvReac Type Severity Reaction Status Date / Time tramadol Allergy Anaphylaxis Verified 06/12/22 11:01 Family History Other Diabetes Low blood sugar Surgical History History of back surgery Social History Smoking Status: Current every day smoker tobacco type: cigarettes Tobacco: How many years used: 7 substance use type: does not use ROS ROS ED ROS Narrative Constitutional: No fever, no chills. HEENT: No sore throat. No neck pain. No loss of vision. No rhinorrhea. Cardiovascular: No chest pain. No palpitations. No pedal edema. Respiratory: No cough, no shortness of breath. Abdominal: Epigastric abdominal pain. Positive nausea and vomiting. No hematemesis. Positive loose stool. Genitourinary: No dysuria. No hematuria. Musculoskeletal: No myalgias. No arthralgias. Neurologic: No headaches. No dizziness. No lightheadedness. Skin: No rash. No change in color. Psychiatric: No depression. No anxiety. EXAM Physical Exam Narrative Exam Narrative: Afebrile. Vital signs noted. HEENT: Normocephalic. Atraumatic. PERRL, EOMI. Neck soft and supple. No point tenderness or step off. Cardiovascular: Regular rate and rhythm. No murmurs, rubs, or gallops appreciated. Respiratory: No tachypnea. Lungs clear to auscultation bilaterally. Gastrointestinal: Abdomen soft, nontender, with normoactive bowel sounds. No rebound or guarding. Neurological: Awake. Alert. Nonfocal, nonlateralizing. Skin: No rash. Normal color. No pallor. Musculoskeletal: No pedal edema. Full range of motion extremities. Const Vital Signs: 06/12/22 10:59 Temperature 96.3 F L Temperature Source Temporal Pulse Rate 113 H Respiratory Rate 18 Blood Pressure 133/92 H Blood Pressure Mean 105 Pulse Ox 97 Oxygen Delivery Method Room Air MDM MDM MDM Narrative Medical decision making narrative: In the differential diagnosis is gastritis versus pancreatitis versus cyclic vomiting syndrome. Comprehensive work-up was pursued. I do not feel CT imaging is indicated currently. I reviewed her laboratory work and she has slightly elevated white count of 11.7 which I think may be demargination from her reported vomiting. Hemoglobin is slightly hemoconcentrated at 16.1 with hematocrit 48.8. Platelet count normal at 228. In review of her CMP, she has a glucose normal at 89 with a normal anion gap of 5. BUN is normal at 8 with a creatinine of 0.83, no evidence of dehydration. Lipase is low at 68. Serum is negative. However, in review of her urinalysis she does have 15 ketones consistent with mild dehydration, but no evidence of infection. Additionally, she has squamous epithelial cells which I think is a contaminant, and I do not feel that antibiotics are indicated. She was bolused normal saline 1 L intravenously and administered Zofran 4 mg intravenously along with Bentyl for her abdominal pain. I was informed by the RN that the patient essentially eloped, but her IV was taken out because she wanted to be discharged. I was unable to perform a repeat examination on her, but I do feel that she could have been discharged safely home with follow-up and continued symptomatic treatment. She did relate her history that she is supposed to follow-up with gastroenterology. I was going to write her for different medications to treat any gastritis and for her nausea, but she left prior to formal discharge. Patient was in stable condition. History & Record Review Discussion w/independent historian: Patient Additional record(s) reviewed:: Prior outpatient record and Prior ED visit Lab Data Attestation: I reviewed the patient's lab results. Labs: Laboratory Results - last 24 hr 06/12/22 06/12/22 06/12/22 11:45 11:45 11:45 WBC 11.7 H RBC 5.31 Hgb 16.1 H Hct 48.8 H MCV 91.9 MCH 30.3 MCHC 33.0 RDW Std Deviation 45.4 H RDW Coeff of Josh 13.4 Plt Count 228 MPV 11.4 Immature Gran % (Auto) 0.300 Neut % (Auto) 76.1 H Lymph % (Auto) 15.7 L [place] % (Auto) 6.2 Eos % (Auto) 1.4 Baso % (Auto) 0.3 Absolute Neuts (auto) 8.9 H Absolute Lymphs (auto) 1.83 Nucleated RBC % 0 Sodium 137 Potassium 3.6 Chloride 106 Carbon Dioxide 26.0 Anion Gap 5 BUN 8 Creatinine 0.83 Estim Creat Clear Calc 94.05 Est GFR (MDRD) Af Amer 108 Est GFR (MDRD) Non-Af 89 BUN/Creatinine Ratio 9.7 L Glucose 89 Calcium 9.2 Total Bilirubin 0.60 AST 33 ALT 76 H Alkaline Phosphatase 82 Total Protein 7.1 Albumin 3.5 Globulin 3.6 Albumin/Globulin Ratio 1.0 Lipase 68 L Serum , Qual NEGATIVE Urine Color Urine Clarity Urine pH Ur Specific [place] Urine Protein Urine Glucose (UA) Urine Ketones Urine Occult Blood Urine Nitrite Urine Bilirubin Urine Urobilinogen Ur Leukocyte Esterase Urine RBC Urine WBC Ur Squamous Epith Cells Urine Bacteria Urine Mucus 06/12/22 12:36 WBC RBC Hgb Hct MCV MCH MCHC RDW Std Deviation RDW Coeff of Josh Plt Count MPV Immature Gran % (Auto) Neut % (Auto) Lymph % (Auto) [place] % (Auto) Eos % (Auto) Baso % (Auto) Absolute Neuts (auto) Absolute Lymphs (auto) Nucleated RBC % Sodium Potassium Chloride Carbon Dioxide Anion Gap BUN Creatinine Estim Creat Clear Calc Est GFR (MDRD) Af Amer Est GFR (MDRD) Non-Af BUN/Creatinine Ratio Glucose Calcium Total Bilirubin AST ALT Alkaline Phosphatase Total Protein Albumin Globulin Albumin/Globulin Ratio Lipase Serum , Qual Urine Color Yellow Urine Clarity Sl. Cloudy Urine pH 8.0 Ur Specific [place] 1.015 Urine Protein 15 H Urine Glucose (UA) Normal Urine Ketones 15 H Urine Occult Blood 50 H Urine Nitrite Negative Urine Bilirubin Negative Urine Urobilinogen 4 H Ur Leukocyte Esterase 500 H Urine RBC 0 SEEN Urine WBC 5-10 SEEN Ur Squamous Epith Cells 10-25 SEEN Urine Bacteria 2+ Urine Mucus 0 SEEN Discharge Plan Triage Chief Complaint: Nausea/Vomiting ED Provider: Zev Tate Dx/Rx/DC Orders Clinical Impression: Nausea and vomiting, Epigastric discomfort Instructions: ED Cyclic Vomiting Syndrome, ED Vomiting (Adult) Prescriptions: No Action ibuprofen 800 mg tablet 800 mg PO Q8H PRN (Reason: pain) 7 Days Qty: 21 0RF Rx Instructions: take with food Primary Care Provider: Care Physician,No Primary Referrals: Care Physician,No Primary [Primary Care Provider] - Disposition Disposition: Home, Self Care Discharge Date/Time: 06/12/22 14:39
== END 2022-06-12 14:39 | disposition home or self-care (01) ==
LOC: ED 12:21
PROVIDERS: Emergency Provider Emergency Medicine; Visit Provider Emergency Medicine
DX: R11.2 Nausea with vomiting, unspecified (principal); R10.13 Epigastric pain; F17.210 Nicotine dependence, cigarettes, uncomplicated
CPT/HCPCS: 80053; 81001; 83690; 84703; 85025; 96361; 96372; 96374; 99283; J7030; A4216; J2405

== ENCOUNTER → 2022-06-19 | Outpatient (CLI) | payer MEDICAID, SELFPAY ==
[2022-06-19 16:28] LABS: HIV - WCH Non-Reactive (Nonreactive); Syphilis Antibodies Non-reactive
[2022-06-21 06:08] LABS: HEPATITIS B SURFACE AG Negative (Negative); Hepatitis B Core Ab Total Negative (Negative)
[2022-06-21 14:23] LABS: Hep B Surface Antibodies Non Reactive (.)
== END | disposition home or self-care (01) ==
LOC: WOBLAB 13:27
PROVIDERS: Visit Provider Nurse Practitioner Women's Health
DX: Z11.3 Encounter for screening for infections with a predominantly sexual mode of transmission (principal)
CPT/HCPCS: 36415; 86703; 86704; 86705; 86706; 86707; 86780; 86803; 87340; 87350

== ENCOUNTER 2022-08-23 08:55 | Emergency (ER) | payer MEDICAID, SELFPAY ==
[2022-08-23 08:56] VITALS: BP 141/101; PULSE 113; RESP 16; TEMP 36.6; O2SAT 99; BMI 32.4
--- NOTE | 2022-08-23 09:32 | ED.VIS.GI ---
HPI HPI - GI History of Present Illness Chief Complaint: Nausea/Vomiting Informant: patient Narrative Narrative: Couple hours with of vomiting and now just dry heaving. After the nausea and vomiting started, she started having upper abdominal discomfort in her epigastrium without radiation. She states this occurred at work and so her boss sent her here to the ER. She states she has had recurrent episodes of this for months, and she has gone to [facility] multiple times for it, she has had labs and CT of the abdomen/pelvis that she was told showed a hiatal hernia, she was prescribed protonic but she has not been on that for over a month now. She states she ate a late dinner last night but did not have anything for breakfast prior to coming here around 9 AM after the symptoms started. She denies any other recent symptoms, she felt fine earlier. She denies using any drugs including marijuana, ever. She was sexually active and had a scare during 1 of these episodes of vomiting and dry heaving, she has had no positive tests all this year, and now she states she does them every week just to make sure but she has not been sexually active since the last time she had a negative test, but she still did 1 yesterday and it was negative. [facility] Medical History Asthma Back pain Encounter for screening for COVID-19 Headache Knee pain Neck pain Home Medications ibuprofen 800 mg tablet 800 mg PO Q8H PRN pain 7 days #21 tabs 04/22/22 [Rx Last Taken Unknown] ondansetron 4 mg disintegrating tablet 8 mg PO Q8H PRN PRN Nausea #24 tabs 08/23/22 [Rx Last Taken Unknown] pantoprazole 40 mg tablet,delayed release 40 mg PO DAILY #30 tabs 08/23/22 [Rx Last Taken Unknown] Allergy/AdvReac Type Severity Reaction Status Date / Time amoxicillin [From Augmentin] Allergy Itching Verified 08/23/22 08:58 clavulanic acid Allergy Itching Verified 08/23/22 08:58 [From Augmentin] tramadol Allergy Anaphylaxis Verified 06/12/22 11:01 Family History Other Diabetes Low blood sugar Surgical History History of back surgery Social History Smoking Status: Current every day smoker tobacco type: cigarettes Tobacco: How many years used: 7 substance use type: does not use ROS ROS ED Constitutional Constitutional ED: Denies chills or fever(s) Eyes Eyes: Denies change in vision or diplopia ENT ENT ED: Denies rhinorrhea or sore throat Cardiovascular Cardiovascular: Denies chest pain or palpitations Respiratory/Chest Respiratory/Chest: Denies cough or dyspnea Gastrointestinal Gastrointestinal: Reports abdominal pain, nausea and vomiting; Denies diarrhea, hematemesis, hematochezia or melena Genitourinary Genitourinary ED: Denies dysuria or hematuria Musculoskeletal Musculoskeletal: Denies back pain or neck pain Integumentary Denies abscess or rash Neurologic Neurologic: Denies headache(s), paresthesias or weakness Psychiatric Psychiatric: Denies anxiety or suicidal thoughts EXAM Physical Exam Const Vital Signs: 08/23/22 08:56 Temperature 97.8 F Temperature Source Temporal Pulse Rate 113 H Respiratory Rate 16 Blood Pressure 141/101 H Blood Pressure Mean 114 Pulse Ox 99 Oxygen Delivery Method Room Air Positive well nourished and well developed Constitutional Narrative: Well-appearing in no distress General Appearance ED: well developed and NAD HEENT Reports moist mucous membranes normocephalic and atraumatic Eyes PERRL and EOMs intact bilaterally Neck full ROM and supple Resp normal respiratory effort and clear to auscultation bilaterally Cardio regular rate, regular rhythm and no murmurs GI non-distended GI Narrative: Tender in epigastrium without guarding or rebound otherwise benign abdomen and nontender including right upper quadrant. Auscultation: normoactive bowel sounds Palpation: soft Back/Spine no CVA tenderness General Back: other FROM Extremity normal to inspection General Extremety ED: Negative for edema, pulses abnormal or tenderness General Extremity: Negative for edema or pulses abnormal Neuro oriented x3, CN's II-XII intact bilaterally and no sensory deficits noted Sensorium / Orientation: awake and alert Motor Exam: strength 5/5 throughout Skin no rashes or lesions noted and no wounds MDM MDM MDM Narrative Medical decision making narrative: Offered test, but she declines. I do not think she needs labs or advanced imaging since she has only been having symptoms for couple hours here, and she is in agreement with that. Symptom control is what we focused on here, started with Zofran. She felt a lot better after that, she declined an offer for anything else including GI cocktail and she was tolerating oral fluids without difficulty. I did a bedside ultrasound of her gallbladder. She is nontender there, there were no stones, pericholecystic fluid, or wall thickening on my interpretation. Given all of this I think it is indeed upper GI, I will prescribe her Protonix I recommend she stay on it and follow-up with either her doctor or GI, she states she has tried to follow-up with multiple GI doctors around region but did not know that we had 1 here so I will refer her since she may need an upper GI/EGD given the chronicity of her symptoms. Discharge Plan Triage Chief Complaint: Nausea/Vomiting ED Provider: Matthew Bain Dx/Rx/DC Orders Clinical Impression: Recurrent vomiting, Acute epigastric pain, Hernia, hiatal Instructions: ED Vomiting (Adult), ED Hiatal Hernia Prescriptions: New ondansetron [ondansetron] 4 mg tablet,disintegrating 8 mg PO Q8H PRN PRN (Reason: Nausea) Qty: 24 0RF pantoprazole 40 mg tablet,delayed release (DR/EC) 40 mg PO DAILY Qty: 30 0RF No Action ibuprofen 800 mg tablet 800 mg PO Q8H PRN (Reason: pain) 7 Days Qty: 21 0RF Rx Instructions: take with food Primary Care Provider: Jenn De Los Santos CUSTOMER OPERATIONS INTERN Referrals: Raul Mercer DO [Med Staff - Active Staff] - Disposition Disposition: Home, Self Care
[2022-08-23] MEDS: Ondansetron ODT 4 MG Tablet 8 MG PO (09:36)
== END 2022-08-23 11:52 | disposition home or self-care (01) ==
PROVIDERS: Emergency Provider Emergency Medicine; PCP Nurse Practitioner Family; Visit Provider Emergency Medicine
DX: R11.2 Nausea with vomiting, unspecified (principal); R10.13 Epigastric pain; K44.9 Diaphragmatic hernia without obstruction or gangrene; F17.210 Nicotine dependence, cigarettes, uncomplicated
CPT/HCPCS: 99281; 99282

== ENCOUNTER 2022-11-26 01:11 | Emergency (ER) | payer MEDICAID, SELFPAY ==
[2022-11-26 01:13] VITALS: BP 155/98; PULSE 95; RESP 16; TEMP 36.6; O2SAT 100; BMI 34.4
[2022-11-26] MEDS: Clindamycin HCl 150 MG Capsule 450 MG PO (01:36)
--- NOTE | 2022-11-26 01:36 | ED.VIS.DENTA ---
HPI History of Present Illness Chief Complaint: Dental Narrative Narrative: 27-year-old female with dental decay. She states has had this for over a year and a half. Initially she saw a dentist for it and had a filling placed however the feeling is come off. Patient is not followed up for a new dental appointment. She states over the last 2 days its been hurting her. Denies any new trauma. No facial swelling. No trouble swallowing or breathing. No fevers or chills. PFSH PFSH Medical History Asthma Back pain Encounter for screening for COVID-19 Headache Knee pain Neck pain Home Medications clindamycin HCl 150 mg capsule 450 mg (3 x 150 mg) PO TID 10 days #90 caps 11/26/22 [Rx Last Taken Unknown] lidocaine HCl 2 % mucosal solution (Lidocaine Viscous) 1 applic mucous membrane Q6H PRN pain #100 mL 11/26/22 [Rx Last Taken Unknown] Allergy/AdvReac Type Severity Reaction Status Date / Time amoxicillin [From Augmentin] Allergy Itching Verified 11/26/22 01:12 clavulanic acid Allergy Itching Verified 11/26/22 01:12 [From Augmentin] tramadol Allergy Anaphylaxis Verified 11/26/22 01:12 Family History Other Diabetes Low blood sugar Surgical History History of back surgery Social History Smoking Status: Current every day smoker tobacco type: cigarettes Tobacco: How many years used: 7 substance use type: does not use ROS ROS ED Constitutional Constitutional ED: Denies chills, fever(s) or sweats Eyes Eyes: Denies blurry vision or change in vision ENT ENT ED: Reports other Details: Dental pain ; Denies ear pain or sore throat Cardiovascular Cardiovascular: Denies chest pain, palpitations or racing heartbeat Respiratory/Chest Respiratory/Chest: Denies cough, dyspnea or sputum Gastrointestinal Gastrointestinal: Denies abdominal pain, constipation, diarrhea, nausea or vomiting Genitourinary Genitourinary ED: Denies dysuria, hematuria or urinary frequency Musculoskeletal Musculoskeletal: Denies arthralgias, myalgias or neck pain Integumentary Denies abscess, Abrasions or rash Neurologic Neurologic: Denies headache(s), paresthesias or weakness Psychiatric Psychiatric: Denies anxiety, depression, suicidal ideation or suicidal thoughts Endocrine Endocrinology: Denies polydipsia or polyuria EXAM Physical Exam Const Vital Signs: 11/26/22 01:13 Temperature 98 F Temperature Source Temporal Pulse Rate 95 Respiratory Rate 16 Blood Pressure 155/98 H Blood Pressure Mean 117 Pulse Ox 100 Positive well nourished General Appearance ED: NAD HEENT HEENT Narrative: Dental decay to tooth #29 on the right. There is no abscess noted. There is percussion tenderness. No facial swelling. No sublingual edema or submandibular edema. Eyes PERRL Cardio regular rate and regular rhythm Neuro oriented x3 and CN's II-XII intact bilaterally Sensorium / Orientation: alert Skin no rashes or lesions noted MDM MDM MDM Narrative Medical decision making narrative: Patient with dental caries of tooth #29. This is a long-term issue which she has not followed up for. There is no facial swelling or signs of Ludewig's angina. Patient will be given a prescription for clindamycin because she is allergic to Augmentin. She was given lidocaine's swish and spit and she can use Tylenol and ibuprofen for pain. I do not believe narcotics are indicated. I recommended she follow-up with her dentist. Impression: 1. Dental caries 2. Dental pain Discharge Plan Triage Chief Complaint: Dental ED Provider: Joey Farrell Dx/Rx/DC Orders Instructions: Dental Abscess Prescriptions: New clindamycin HCl 150 mg capsule 450 mg PO TID 10 Days Qty: 90 0RF lidocaine HCl [Lidocaine Viscous] 2 % solution 1 applic mucous membrane Q6H PRN (Reason: pain) Qty: 100 0RF Primary Care Provider: Jenn De Los Santos NP Referrals: Jenn De Los Santos NP, [employer] MAKING MACHINE OPERATOR-C [Primary Care Provider] - Disposition Disposition: Home, Self Care
[2022-11-26 01:43] VITALS: BP 145/90; PULSE 88; RESP 18
== END 2022-11-26 01:43 | disposition home or self-care (01) ==
LOC: ED 01:38
PROVIDERS: Emergency Provider Student in an Organized Health Care Education/Training Program; PCP Nurse Practitioner Family; Visit Provider Student in an Organized Health Care Education/Training Program
DX: K02.9 Dental caries, unspecified (principal); K08.89 Other specified disorders of teeth and supporting structures; F17.210 Nicotine dependence, cigarettes, uncomplicated
CPT/HCPCS: 99283

== ENCOUNTER 2023-01-22 05:57 | Emergency (ER) | payer MEDICAID, SELFPAY ==
[2023-01-22 05:57] VITALS: BP 150/88; PULSE 123; RESP 16; TEMP 36.4; O2SAT 98; BMI 36.1
--- NOTE | 2023-01-22 06:17 | ED.VIS.DENTA ---
HPI History of Present Illness Chief Complaint: Dental Informant: patient Narrative Narrative: Worsening right lower dental pain for last 27 hours. History of similar. Last flare 2 months ago. She followed up with [facility] referring to oral surgeon and stating it cost $6000. She called her healthcare insurance and was told she needs a referral to see the oral surgeon. Denies fevers. Alternate Tylenol and Motrin last dose of Tylenol 4 hours ago. Allergy to Augmentin with the clivus and neck acid, states has done regular amoxicillin and penicillin in the past. Prior similar symptoms: Yes PFSH PFSH Medical History Asthma Back pain Encounter for screening for COVID-19 Headache Knee pain Neck pain Home Medications ibuprofen 600 mg tablet 600 mg PO Q6H PRN PRN pain #20 TABLETS 01/22/23 [Rx Last Taken Unknown] penicillin V potassium 250 mg tablet 500 mg (2 x 250 mg) PO 4X/DAY #40 tabs 01/22/23 [Rx Last Taken Unknown] Allergy/AdvReac Type Severity Reaction Status Date / Time amoxicillin [From Augmentin] Allergy Itching Verified 01/22/23 06:01 clavulanic acid Allergy Itching Verified 01/22/23 06:01 [From Augmentin] tramadol Allergy Anaphylaxis Verified 01/22/23 06:01 Family History Other Diabetes Low blood sugar Surgical History History of back surgery Social History Smoking Status: Current every day smoker tobacco type: cigarettes Tobacco: How many years used: 7 substance use type: does not use ROS ROS ED Constitutional Constitutional ED: Denies chills, fever(s) or sweats Eyes Eyes: Denies change in vision ENT ENT ED: Reports other Details: Dental pain ; Denies dysphagia or sore throat Cardiovascular Cardiovascular: Denies chest pain, leg edema, palpitations or racing heartbeat Respiratory/Chest Respiratory/Chest: Denies cough, dyspnea or dyspnea on exertion Gastrointestinal Gastrointestinal: Denies abdominal pain, diarrhea, nausea or vomiting Genitourinary Genitourinary ED: Denies dysuria, hematuria or urinary frequency Musculoskeletal Musculoskeletal: Denies back pain, extremity pain or neck pain Integumentary Denies rash or wounds Neurologic Neurologic: Denies headache(s), paresthesias or weakness EXAM Physical Exam Const Vital Signs: 01/22/23 05:57 Temperature 97.6 F L Temperature Source Temporal Pulse Rate 123 H Respiratory Rate 16 Blood Pressure 150/88 H Blood Pressure Mean 108 Pulse Ox 98 Oxygen Delivery Method Room Air Positive well nourished and well developed General Appearance ED: well developed and NAD HEENT Reports moist mucous membranes HEENT Narrative: Tooth 29 decayed down to gumline with tenderness to percussion. No sublingual edema no focal fluctuance of the gums. There was central decay of tooth 31. Nontender to palpation. normocephalic and atraumatic Eyes PERRL, EOMs intact bilaterally and conjunctivae normal General Eye ED: Yes normal appearance of both eyes Neck no lymphadenopathy and supple Neck Narrative: No crepitus. General: Negative for tenderness Chest Wall Chest: Negative for tenderness Resp normal respiratory effort and normal air movement Effort and Inspection: symmetric chest movement; Negative for respiratory distress Cardio regular rhythm and no murmurs Rate: tachycardic Peripheral Pulses: pulses 2+ throughout GI normal to inspection, nondistended, normoactive bowel sounds and non-tender Palpation: Negative for guarding or rebound tenderness present Back/Spine no CVA tenderness and no thoracic nor lumbar tenderness Extremity normal to inspection General Extremety ED: Negative for edema or tenderness General Extremity: Negative for edema Neuro oriented x3 and no sensory deficits noted Sensorium / Orientation: awake and alert Skin no rashes or lesions noted and no wounds MDM MDM MDM Narrative Medical decision making narrative: Interventions / MDM: Differential diagnosis: Dental cavity with dentalgia Diagnosis considered but do not suspect: No clinical dental abscess My EKG interpretation: N/A Imaging independently reviewed and interpreted by myself: N/A External documents reviewed: N/A Test considered but not ordered:N/A ED course: Afebrile, tachycardia on arrival. Nontoxic. No focal abscess on clinical exam. She started on penicillin as she has tolerated. She is treated with Motrin in the ED. Prescription sent to her pharmacy. Patient will call her dentist or PCP for the referral required to see the oral surgeon. All questions were answered. Re-evaluation: stable Disposition discussed with patient/family/significant other: Patient Case discussed with consulting clinician: N/A This note was generated with [employer] dictation software. It may contain incorrect words, spelling, and punctuation that were not noted in checking the note before signing. Discharge Plan Triage Chief Complaint: Dental ED Provider: Bandar Chang Dx/Rx/DC Orders Clinical Impression: Dental caries, Dentalgia Instructions: ED Dental Pain, ED Dental Cavity Prescriptions: New ibuprofen 600 mg tablet 600 mg PO Q6H PRN PRN (Reason: pain) Qty: 20 0RF penicillin V potassium 250 mg tablet 500 mg PO 4X/DAY Qty: 40 0RF Primary Care Provider: Care Physician,No Primary Referrals: Jenn De Los Santos PLATEMAKER, PLATEMAKER-C [Non-Staff] - Activity Restrictions/Additional Instructions: Take antibiotic pain medicine as prescribed. Call your dentist or your PCP for further referral required to see oral surgeon for definitive treatment. Disposition Disposition: Home, Self Care Discharge Date/Time: 01/22/23 06:48
[2023-01-22] MEDS: Ibuprofen 600 MG Tablet PO (06:43)
[2023-01-22] MEDS: Penicillin Vk 250 MG Tablet 500 MG PO (06:44)
== END 2023-01-22 06:48 | disposition home or self-care (01) ==
LOC: ED 06:32
PROVIDERS: Emergency Provider Emergency Medicine; Visit Provider Emergency Medicine
DX: K02.9 Dental caries, unspecified (principal); K08.89 Other specified disorders of teeth and supporting structures; F17.210 Nicotine dependence, cigarettes, uncomplicated
CPT/HCPCS: 99283

== ENCOUNTER 2023-01-27 10:07 | Emergency (ER) | payer MEDICAID, SELFPAY ==
[2023-01-27 10:10] VITALS: BP 146/101; PULSE 110; RESP 16; TEMP 36.5; O2SAT 100; BMI 35.7
--- NOTE | 2023-01-27 11:13 | EDS_ITS ---
<Statement entered by Lin Coates MD - 01/27/23 19:08> I have personally performed a face to face assessment of the patient and have reviewed the NANDO Note. Patient presents secondary to and bleeding. Patient states she just found out that she was on a positive home test. She was seen at [facility] emergency room yesterday. She states the physician in the ER did a bedside ultrasound and showed her a small ring on the ultrasound. She states she was told to follow-up on Saturday. She presents to this ER today due to having spotting this morning. She has some low back pain. This is her first . She does not know her blood type. Patient sitting upright in bed no acute distress. Head and neck examination unremarkable. Heart is regular rate and rhythm. Lung sounds are clear. Abdomen is soft with no focal tenderness. hCG quant is obtained. Blood type is a positive. Pelvic ultrasound reveals approximately 6-week . Test results discussed with the patient and referred to [facility] for follow-up. Return instructions given. HPI HPI - Female History of Present Illness Chief Complaint: Vag Bld, Preg Narrative Narrative: 27-year-old female G1, P0 presents with bleeding in first trimester . She has irregular menses from PCOS and thinks her LMP was around November 29. She was feeling rundown this week and took a test at home yesterday which was positive. She had been drinking a couple days before so went to [facility] ER to get checked out. She states they did a bedside ultrasound and checked her urine. She was on penicillin for a dental infection and they had her stop this and start clindamycin. She developed low back pain and light red vaginal bleeding this morning prompting her to come in. No abdominal pain. No fever or chills, no nausea or vomiting. No vaginal discharge or dysuria. [facility] Medical History Asthma Back pain Encounter for screening for COVID-19 Headache Knee pain Neck pain Home Medications ibuprofen 600 mg tablet 600 mg PO Q6H PRN PRN pain #20 TABLETS 01/22/23 [Rx Last Taken Unknown] penicillin V potassium 250 mg tablet 500 mg (2 x 250 mg) PO 4X/DAY #40 tabs 01/22/23 [Rx Last Taken Unknown] Allergy/AdvReac Type Severity Reaction Status Date / Time amoxicillin [From Augmentin] Allergy Itching Verified 01/27/23 10:08 clavulanic acid Allergy Itching Verified 01/27/23 10:08 [From Augmentin] tramadol Allergy Anaphylaxis Verified 01/27/23 10:08 Family History Other Diabetes Low blood sugar Surgical History History of back surgery Social History Smoking Status: Current every day smoker tobacco type: cigarettes Tobacco: How many years used: 7 substance use type: does not use ROS ROS ED ROS Narrative Constitutional: Negative for fever, chills, malaise. CVS: Negative for chest pain. Respiratory: Negative for shortness of breath. GI: Negative for abdominal pain, nausea, vomiting. : Negative for dysuria, hematuria or frequency. EXAM Physical Exam Narrative Exam Narrative: CONST: Patient sitting in no acute distress. EYES: Normal inspection. NECK: Normal inspection. RESP: No respiratory distress, CTAB. CVS: Regular rate and rhythm, no murmur, no gallop. ABD: Soft and nontender, no guarding or rebound, nondistended. pelvis: Normal external genitalia, cervix appears closed with very scant blood in vaginal vault. No active bleeding or discharge. SKIN: Color normal, no rash, warm, dry, intact. EXTREMITIES: Normal appearance, no pedal edema. NEURO: Oriented x4. PSYCH: Normal affect. Const Vital Signs: 01/27/23 10:10 Temperature 97.7 F L Temperature Source Temporal Pulse Rate 110 H Respiratory Rate 16 Blood Pressure 146/101 H Blood Pressure Mean 116 Pulse Ox 100 Oxygen Delivery Method Room Air MDM MDM MDM Narrative Medical decision making narrative: 27-year-old female presents with low back pain and vaginal bleeding in first trimester . She appears well and nontoxic. HR is 110 with otherwise stable vital signs. She is not tachycardic during my exam. Lungs are clear. Abdomen is soft and nontender. hCG quant is 28,953. Blood type is A+ so she does not require RhoGAM. Urinalysis is negative for infection or bacteria. US shows single live IUP estimated at 6 weeks, 4 days with low heart rate of 96 bpm. Bedside pelvic exam showed a closed cervical os with no active bl eeding. I discussed with her this represents a threatened miscarriage and recommended she follow-up with [facility] in the next 1 to 2 days. Patient was comfortable with this plan and discharged in stable condition. Differential: Implantation bleeding, threatened miscarriage, miscarriage, ectopic Lab Data Attestation: I reviewed the patient's lab results. Labs: Laboratory Results - last 24 hr 01/27/23 11:35 HCG, Quant [id number] H Urine Color Yellow Urine Clarity Clear Urine pH 5.0 Ur Specific [place] 1.025 Urine Protein 15 H Urine Glucose (UA) Normal Urine Ketones 5 H Urine Occult Blood 250 H Urine Nitrite Negative Urine Bilirubin Negative Urine Urobilinogen Normal Ur Leukocyte Esterase 25 H Urine RBC 0 SEEN Urine WBC 0-5 SEEN Ur Squamous Epith Cells 0-5 SEEN Urine Bacteria 0 SEEN Urine Mucus 0 SEEN Blood Type A POSITIVE Radiography Diagnostic Testing: Clinical Impression(s) from Imaging Studies Obstetrics Ultrasound 01/27/23 11:16 IMPRESSION: There is a single live intrauterine with a heart rate of 96 bpm. The heart rate is low and the GS is irregular in shape. Electronically Signed: Albert Navarro MD at 14:22 EST Reading Location ID and State: [facility] / [place] , Service support , Discharge Plan Triage Chief Complaint: Vag Bld, Preg ED Midlevel Provider: Jeanette Hoyt ED Provider: Lin Coates Dx/Rx/DC Orders Clinical Impression: Miscarriage, threatened, early Instructions: ED Possible Miscarriage ... Prescriptions: No Action ibuprofen 600 mg tablet 600 mg PO Q6H PRN PRN (Reason: pain) Qty: 20 0RF penicillin V potassium 250 mg tablet 500 mg PO 4X/DAY Qty: 40 0RF Primary Care Provider: Care Physician,No Primary Referrals: Lin Ash DO [Med Staff - Active Staff] - Care Physician,No Primary [Primary Care Provider] - Activity Restrictions/Additional Instructions: Please take Tylenol for pain. If you develop severe abdominal pain or severe bleeding return to the ER. Call [facility] tomorrow for an appointment. Disposition Disposition: Home, Self Care Discharge Date/Time: 01/27/23 14:47
--- NOTE | 2023-01-27 11:16 | US_ITS ---
STUDY: FIRST TRIMESTER OBSTETRICAL ULTRASOUND REASON FOR EXAM: Female, 27 years old. bleeding TECHNIQUE: Transvaginal US was obtained to better visualized the ovaries. TECHNICAL QUALITY: Adequate. PRIOR ULTRASOUND: None. FINDINGS: There is visualization of a single gestational sac in a normal intrauterine position. The mean sac diameter (MSD) measures 19 mm, indicating an estimated gestational age (EGA) of 6 weeks, 6 days. The gestational sac shape is irregular. There is a visualized yolk sac. The yolk sac measures 3.5 mm. The placenta is non-visualized. There is visualization of a live embryo. The crown-rump length (CRL) measures 2.5 mm, indicating an estimated gestational age (EGA) of 6 weeks, 1 days. There is demonstrated cardiac activity with a heart rate of 96 bpm. The estimated gestation age (EGA) by LMP is 8 weeks, 3 days. The estimated date of delivery (DEBBY) by LMP is 6.20.24. The estimated gestation age (EGA) by US is 6 weeks, 4 days. The estimated date of delivery (DEBBY) by US is 7.3.24. The uterus measures 11.3 cm. There is no demonstrated uterine fibroid. The cervix is closed. The right ovary measures 4 cm. There is no right ovarian cyst. There is no visualized right adnexal mass or complex lesion. The left ovary measures 4.5 cm. There is no left ovarian cyst. There is no visualized left adnexal mass or complex lesion. There is minimal fluid in the cul de sac. US/Transvaginal w/Preg US IMPRESSION: There is a single live intrauterine with a heart rate of 96 bpm. The heart rate is low and the GS is irregular in shape. Electronically Signed: Albert Navarro MD at 14:22 EST ,
[2023-01-27 11:44] LABS: Bacteria 0 SEEN /hpf (None Seen); Mucous, Urine 0 SEEN /hpf (<or=2+); Red Blood Cells-Urine 0 SEEN /hpf (0-5)
[2023-01-27 11:46] LABS: Color, Urine Yellow (Yellow); Glucose, Dipstick Normal (Normal); Ketone-Dipstick 5 mg/dl (Negative); Leukocyte Esterase-Dipstick 25 /ul (Negative); Nitrite-Dipstick Negative (Negative); Occult Blood-Urine 250 /ul (Negative); Protein-Dipstick 15 mg/dl (Negative); Specific Gravity, Urine 1.025 (1.002-1.030); Urine Bilirubin Dipstick Negative (Negative); Urine Clarity Clear (Clear); Urine Urobilinogen Normal (Normal)
[2023-01-27 11:52] LABS: Squamous Epithelial Cells - UA 0-5 SEEN /hpf (5-10); White Blood Cells 0-5 SEEN /hpf (0-5)
[2023-01-27 12:54] LABS: hCG Titer Quant., Serum 28953 mIU/mL (1-3)
== END 2023-01-27 14:47 | disposition home or self-care (01) ==
PROVIDERS: Physician Assistant; Emergency Provider Emergency Medicine; Visit Provider Emergency Medicine
DX: O20.0 Threatened abortion (principal); O99.331 Smoking (tobacco) complicating pregnancy, first trimester; F17.210 Nicotine dependence, cigarettes, uncomplicated; Z3A.01 Less than 8 weeks gestation of pregnancy
CPT/HCPCS: 76817; 81001; 84702; 86900; 86901; 99283; A4216

== ENCOUNTER 2023-04-07 20:50 | Emergency (ER) | payer MEDICAID, SELFPAY ==
[2023-04-07 20:51] VITALS: BP 166/113; PULSE 111; RESP 16; TEMP 36.6; O2SAT 99; BMI 35.7
--- NOTE | 2023-04-07 21:51 | ED.VIS.DENTA ---
HPI History of Present Illness Chief Complaint: Dental Narrative Narrative: 27-year-old female who states that she is approximately 15 weeks presents with pain in her right lower jaw from a dental carry that she has had over the last few days. She states she is always had problems with her teeth, and she was going to have [facility] pull her wisdom teeth, and a few of her carious teeth in her right lower jaw as well. She states that it was too expensive, so she was going to follow-up with the [facility] who was going to do exploratory dental surgery . However, she found out that she was . She is currently a G1, P0 at approximately 15 weeks. She is not having any vaginal bleeding or pelvic pain, but states that they will not pull her teeth because she will require general anesthesia and cannot have this performed while she is . She presents because she feels pain in her gums in her right lower jaw and in her teeth and she is not sure if it is coming from her wisdom teeth are firm her dental cavity in her right lower jaw. She denies any difficulty swallowing. No fevers or chills. No nausea or vomiting. [facility] Medical History Asthma Back pain Encounter for screening for COVID-19 Headache Knee pain Neck pain Home Medications ibuprofen 600 mg tablet 600 mg PO Q6H PRN PRN pain #20 TABLETS 01/22/23 [Rx Last Taken Unknown] penicillin V potassium 250 mg tablet 500 mg (2 x 250 mg) PO 4X/DAY #40 tabs 01/22/23 [Rx Last Taken Unknown] penicillin V potassium 250 mg tablet 500 mg (2 x 250 mg) PO 4X/DAY #40 tabs 04/07/23 [Rx Last Taken Unknown] Allergy/AdvReac Type Severity Reaction Status Date / Time amoxicillin [From Augmentin] Allergy Itching Verified 01/27/23 10:08 clavulanic acid Allergy Itching Verified 01/27/23 10:08 [From Augmentin] tramadol Allergy Anaphylaxis Verified 01/27/23 10:08 Family History Other Diabetes Low blood sugar Surgical History History of back surgery Social History Smoking Status: Current every day smoker tobacco type: cigarettes Tobacco: How many years used: 7 substance use type: does not use ROS ROS ED ROS Narrative Constitutional: No fever, no chills. HEENT: No sore throat. No neck pain. No loss of vision. No rhinorrhea. Positive right lower jaw pain. Positive dental pain. No difficulty swallowing. Cardiovascular: No chest pain. No palpitations. No pedal edema. Respiratory: No cough, no shortness of breath. Abdominal: No abdominal pain. No nausea. No vomiting. Genitourinary: No dysuria. No hematuria. Musculoskeletal: No myalgias. No arthralgias. Neurologic: No headaches. No dizziness. No lightheadedness. Skin: No rash. No change in color. Psychiatric: No depression. No anxiety. EXAM Physical Exam Narrative Exam Narrative: Afebrile. Vital signs noted. HEENT: Normocephalic. Atraumatic. PERRL, EOMI. Neck soft and supple. No point tenderness or step off. Dental examination reveals impacted wisdom tooth in the right lower jaw. Tooth #29 is a carious tooth down to the gumline but no fluctuance of the gum. No Travis angina. No angioedema of the tongue. No drooling or trismus. Airway is patent. No cervical lymphadenopathy. Cardiovascular: Regular rate and rhythm with intermittent tachycardia. No murmurs, rubs, or gallops appreciated. Respiratory: No tachypnea. Lungs clear to auscultation bilaterally. Gastrointestinal: Abdomen soft, nontender, with normoactive bowel sounds. No rebound or guarding. Neurological: Awake. Alert. Nonfocal, nonlateralizing. Skin: No rash. Normal color. No pallor. Musculoskeletal: No pedal edema. Full range of motion extremities. Const Vital Signs: 04/07/23 20:51 Temperature 97.8 F Temperature Source Temporal Pulse Rate 111 H Respiratory Rate 16 Blood Pressure 166/113 H Blood Pressure Mean 130 Pulse Ox 99 Oxygen Delivery Method Room Air MDM MDM MDM Narrative Medical decision making narrative: As the patient is , and at 15 weeks, this was established by history. No feel any imaging is indicated as she is not having any problems with the reportedly. She is here more for dental today and states that she has taken the maximum dose of Tylenol allowable. I do not feel NSAIDs are indicated as she is close to her second trimester. I do feel she would benefit from antibiotics. I will avoid clindamycin at this time. She states that she can tolerate regular penicillin and she has been prescribed this in the past. She was given a prescription for penicillin VK and her first dose given here in the emergency department. Additionally, smoking cessation was discussed. She will follow-up with her [facility]. Additionally, still feel she should follow-up with a [facility] regarding her dental pain just to follow up. She requested 1 Benadryl tablet here prior to discharge as she states that her OB said that this was allowable. Return instructions were reviewed. Disposition is discharged home in stable condition. Discharge Plan Triage Chief Complaint: Dental ED Provider: Zev Tate Dx/Rx/DC Orders Clinical Impression: Dental decay, , Pain, dental Instructions: How Smoking Affects , ED Dental Pain, ED Dental Cavity Prescriptions: New penicillin V potassium 250 mg tablet 500 mg PO 4X/DAY Qty: 40 0RF No Action ibuprofen 600 mg tablet 600 mg PO Q6H PRN PRN (Reason: pain) Qty: 20 0RF penicillin V potassium 250 mg tablet 500 mg PO 4X/DAY Qty: 40 0RF Primary Care Provider: Care Physician,No Primary Referrals: Sil Frank [Non-Staff] - 1 Week Care Physician,No Primary [Primary Care Provider] - Disposition Disposition: Home, Self Care
[2023-04-07] MEDS: Penicillin Vk 250 MG Tablet 500 MG PO (21:54)
[2023-04-07] MEDS: DiphenhydrAMINE 25 MG Capsule PO (22:00)
== END 2023-04-07 22:01 | disposition home or self-care (01) ==
PROVIDERS: Emergency Provider Emergency Medicine; Visit Provider Emergency Medicine
DX: O99.612 Diseases of the digestive system complicating pregnancy, second trimester (principal); K02.9 Dental caries, unspecified; O99.332 Smoking (tobacco) complicating pregnancy, second trimester; F17.210 Nicotine dependence, cigarettes, uncomplicated; K08.89 Other specified disorders of teeth and supporting structures; Z3A.15 15 weeks gestation of pregnancy
CPT/HCPCS: 99283

== ENCOUNTER 2023-04-08 12:12 | Emergency (ER) | payer MEDICAID, SELFPAY ==
[2023-04-08 12:13] VITALS: BP 183/109; PULSE 124; RESP 16; TEMP 35.8; O2SAT 98; BMI 35.6
--- NOTE | 2023-04-08 12:27 | EDS_ITS ---
HPI History of Present Illness Chief Complaint: Dental Informant: patient Narrative Narrative: Dental pain for the last few days. Started at the teeth/gingiva right mandibular canine, now throbbing throughout her mandible. No discharge or bleeding. She was seen here last night and received penicillin that she just started, but she states she is maxing out the allowable daily dose of Tylenol, she is 15 weeks , states she was up all night because of the pain and cannot tolerate it and asking for something more. [facility] Medical History Asthma Back pain Encounter for screening for COVID-19 Headache Knee pain Neck pain Home Medications ibuprofen 600 mg tablet 600 mg PO Q6H PRN PRN pain #20 TABLETS 01/22/23 [Rx Last Taken Unknown] penicillin V potassium 250 mg tablet 500 mg (2 x 250 mg) PO 4X/DAY #40 tabs 01/22/23 [Rx Last Taken Unknown] penicillin V potassium 250 mg tablet 500 mg (2 x 250 mg) PO 4X/DAY #40 tabs 04/07/23 [Rx Last Taken Unknown] hydrocodone-acetaminophen 5-325mg 5mg-325mg 1 tab PO Q6H PRN pain 2 days #8 TABLETS 04/08/23 [Rx Last Taken Unknown] Allergy/AdvReac Type Severity Reaction Status Date / Time amoxicillin [From Augmentin] Allergy Itching Verified 04/08/23 12:17 clavulanic acid Allergy Itching Verified 04/08/23 12:17 [From Augmentin] tramadol Allergy Anaphylaxis Verified 04/08/23 12:17 Family History Other Diabetes Low blood sugar Surgical History History of back surgery Social History Smoking Status: Current every day smoker tobacco type: cigarettes Tobacco: How many years used: 7 substance use type: does not use ROS ROS ED Constitutional Constitutional ED: Denies chills or fever(s) Eyes Eyes: Denies change in vision or double vision ENT ENT ED: Reports dental pain; Denies sinus pain or throat swelling Cardiovascular Cardiovascular: Denies chest pain or palpitations Respiratory/Chest Respiratory/Chest: Denies cough or dyspnea Integumentary Denies abscess or rash Neurologic Neurologic: Denies headache(s), paresthesias or weakness EXAM Physical Exam Const Vital Signs: 04/08/23 12:13 Temperature 96.5 F L Temperature Source Temporal Pulse Rate 124 H Respiratory Rate 16 Blood Pressure 183/109 H Blood Pressure Mean 133 Pulse Ox 98 Oxygen Delivery Method Room Air Positive well nourished and well developed General Appearance ED: well developed and NAD HEENT HEENT Narrative: Severely decayed tooth approximately #28 down to the gumline, this whole area is tender but there is no abscess. She has no bleeding or necrotic gingiva. There is no trismus. She has no other areas of tenderness. Tongue is not elevated floor the mouth is soft. No dysphonia. Face and Sinus: sinuses nontender Throat: posterior oropharynx normal Eyes PERRL and EOMs intact bilaterally Neck no lymphadenopathy and supple Resp normal respiratory effort Neuro oriented x3 and CN's II-XII intact bilaterally Sensorium / Orientation: alert Gait (Neuro): normal gait Psych mental status grossly normal and thought process normal Skin no rashes or lesions noted and no wounds MDM MDM MDM Narrative Medical decision making narrative: I agree with the other physician from last night, would avoid NSAIDs. I discussed that prescription medications are narcotic based, and there are risks to her and the baby with regards to these. She states she understands the risks and would like a prescription anyway because she cannot tolerate the pain on Tylenol and melatonin. I did offer local anesthesia in the form of an inferior alveolar nerve block and ordered by her about half a days worth of pain relief but she declines. Reports anaphylaxis to tramadol. Has been prescribed [place] without difficulty in the past. Discharge Plan Triage Chief Complaint: Dental ED Provider: Matthew Bain Dx/Rx/DC Orders Clinical Impression: Dental decay, , Pain, dental Instructions: ED Dental Pain Prescriptions: New hydrocodone-acetaminophen [hydrocodone-acetaminophen] 5-325 mg tablet 1 tab PO Q6H PRN (Reason: pain) 2 Days Qty: 8 0RF No Action penicillin V potassium 250 mg tablet 500 mg PO 4X/DAY Qty: 40 0RF ibuprofen 600 mg tablet 600 mg PO Q6H PRN PRN (Reason: pain) Qty: 20 0RF penicillin V potassium 250 mg tablet 500 mg PO 4X/DAY Qty: 40 0RF Primary Care Provider: Care Physician,No Primary Referrals: Dentist,Your [STAFF PHYSICIAN] -
== END 2023-04-08 12:44 | disposition home or self-care (01) ==
LOC: ED 12:37
PROVIDERS: Emergency Provider Emergency Medicine; Visit Provider Emergency Medicine
DX: O99.612 Diseases of the digestive system complicating pregnancy, second trimester (principal); O99.332 Smoking (tobacco) complicating pregnancy, second trimester; K08.89 Other specified disorders of teeth and supporting structures; K02.9 Dental caries, unspecified; F17.210 Nicotine dependence, cigarettes, uncomplicated; Z3A.15 15 weeks gestation of pregnancy
CPT/HCPCS: 99282

== ENCOUNTER 2023-05-30 20:31 | Emergency (ER) | payer MEDICAID, SELFPAY ==
[2023-05-30 20:32] VITALS: BP 145/99; PULSE 111; RESP 18; TEMP 35.8; O2SAT 96; BMI 35.2
--- NOTE | 2023-05-30 21:32 | EDS_ITS ---
HPI <ES Conley - Last Filed: 05/30/23 22:03> History of Present Illness Chief Complaint: Ear Problem Narrative Narrative: Patient presenting today with dental pain to her left lower jaw that radiates to her left ear and throat that she has had for about a week. She reports that she went to urgent care yesterday and was prescribed amoxicillin and has been taking Tylenol with minimal relief of her symptoms. She reports that she has been trying to get into [facility] dental clinic but nobody will answer her phone calls. She is currently and reports nobody will want to pull her teeth. She denies fevers, chills, abdominal pain. PFSH <ES Conley - Last Filed: 05/30/23 22:03> [facility] Medical History Asthma Back pain Encounter for screening for COVID-19 Headache Knee pain Neck pain Home Medications ibuprofen 600 mg tablet 600 mg PO Q6H PRN PRN pain #20 TABLETS 01/22/23 [Rx Last Taken Unknown] penicillin V potassium 250 mg tablet 500 mg (2 x 250 mg) PO 4X/DAY #40 tabs 01/22/23 [Rx Last Taken Unknown] penicillin V potassium 250 mg tablet 500 mg (2 x 250 mg) PO 4X/DAY #40 tabs 04/07/23 [Rx Last Taken Unknown] hydrocodone-acetaminophen 5-325mg 5mg-325mg 1 tab PO Q6H PRN pain 2 days #8 TABLETS 04/08/23 [Rx Last Taken Unknown] Allergy/AdvReac Type Severity Reaction Status Date / Time clavulanic acid Allergy Itching Verified 05/30/23 20:32 [From Augmentin] tramadol Allergy Anaphylaxis Verified 05/30/23 20:32 Family History Other Diabetes Low blood sugar Surgical History History of back surgery Social History Smoking Status: Current every day smoker tobacco type: cigarettes Tobacco: How many years used: 7 substance use type: does not use ROS <ES Conley - Last Filed: 05/30/23 22:03> ROS ED Constitutional Constitutional ED: Denies chills or fever(s) Cardiovascular Cardiovascular: Denies chest pain Respiratory/Chest Respiratory/Chest: Denies cough or dyspnea Gastrointestinal Gastrointestinal: Denies abdominal pain, nausea or vomiting Musculoskeletal Musculoskeletal: Denies arthralgias or myalgias Integumentary Denies rash Neurologic Neurologic: Denies weakness EXAM <ES Conley Last Filed: 05/30/23 22:03> Physical Exam Const Vital Signs: 05/30/23 20:32 Temperature 96.5 F L Temperature Source Temporal Pulse Rate 111 H Respiratory Rate 18 Blood Pressure 145/99 H Blood Pressure Mean 114 Pulse Ox 96 Oxygen Delivery Method Room Air Positive well nourished, well developed and no apparent distress General Appearance ED: well developed HEENT Reports normocephalic, head/scalp atraumatic and TM's clear HEENT Narrative: Pain to teeth 17 and 18, there is dental decay, no dental abscess, no trismus, no drooling. Posterior pharynx clear, uvula midline, no tonsillar abscess. Tympanic Membrane ED: Yes TM's clear bilateral Mouth ED: Yes moist mucous membranes normal Eyes PERRL and EOMs intact bilaterally Neck full ROM and supple Chest Wall inspection of chest normal Resp normal respiratory effort and clear to auscultation bilaterally Cardio regular rate and regular rhythm GI soft to palpation, non-tender, non-distended and no masses Back/Spine normal ROM and normal to inspection Extremity normal to inspection and full ROM Neuro oriented x3, CN's II-XII intact bilaterally, moves all extremities, no focal motor deficits and no sensory deficits noted Sensorium / Orientation: awake and alert Psych mental status grossly normal and thought process normal Skin no rashes or lesions noted and no wounds <Dr. Francesco Mason DO - Last Filed: 05/30/23 22:23> Physical Exam Const Vital Signs: 05/30/23 20:32 Temperature 96.5 F L Temperature Source Temporal Pulse Rate 111 H Respiratory Rate 18 Blood Pressure 145/99 H Blood Pressure Mean 114 Pulse Ox 96 Oxygen Delivery Method Room Air MDM <ES Conley - Last Filed: 05/30/23 22:03> MDM MDM Narrative Medical decision making narrative: Patient presenting due to left sided mandibular dental pain she has had for over a week that radiates to her left ear and throat. No signs of strep throat, no otitis media or otitis externa, no dental abscess, no signs of Ludewig's angina. She has been here multiple times in the past for dental pain and has yet to follow-up with a dentist. I will give her a dental referral sheet and have stressed the importance of her seeing a dentist given she has been on multiple antibiotics for this pain. She is and has received narcotic prescriptions in the past for this pain, I do not feel that it is appropriate for me to prescribe these for her. I have encouraged Tylenol. She was given a prescription for amoxicillin yesterday by urgent care, no further antibiotics are warranted. Return instructions will be given and she will be discharged home in stable condition. I did offer a dental block, patient is not interested. <Dr. Francesco Mason, DO - Last Filed: 05/30/23 22:23> [facility] Narrative Medical decision making narrative: Patient presenting due to left sided mandibular dental pain she has had for over a week that radiates to her left ear and throat. No signs of strep throat, no otitis media or otitis externa, no dental abscess, no signs of Ludewig's angina. She has been here multiple times in the past for dental pain and has yet to follow-up with a dentist. I will give her a dental referral sheet and have stressed the importance of her seeing a dentist given she has been on multiple antibiotics for this pain. She is and has received narcotic prescriptions in the past for this pain, I do not feel that it is appropriate for me to prescribe these for her. I have encouraged Tylenol. She was given a prescription for amoxicillin yesterday by urgent care, no further antibiotics are warranted. Return instructions will be given and she will be discharged home in stable condition. I did offer a dental block, patient is not interested. I have personally performed a face to face assessment of the patient and have reviewed the NANDO Note. I performed a substantive portion of the visit including all aspects of the following. My holloway findings include: History: 27-year-old female with recurrent dental pain presenting to the emergency department with dental pain. Patient is getting ready to enter her third trimester of . She follows with [facility] obstetrics. Patient states that in March she was here with dental pain on the right side. She was given a strong antibiotic and pain medication. She states that she saw urgent care for pain on the left lower molar area and was placed on amoxicillin. She states that she is maxing out Tylenol dosing and needs something for the pain. She states that no dentist will see her because of her and she called [facility] is yet to get an appointment with them. 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 She has cut her smoking down to ab out 3 cigarettes/day Exam: Patient is exhibiting no trismus floor the mouth swelling or gum swelling to suggest abscess. I do not appreciate any swelling or tenderness along the mandibular line. She points to all 3 molars as the source of her pain. Medical Decision Making: Patient is on amoxicillin. I do not think that switching her from amoxicillin to Pen-Vee K is going to make that big of a d ifference. Especially in light that she does not have an obvious abscess and this is most likely dental caries. I am very hesitant to give her any narcotics at this point in her . Baby is now approaching viability and do not want her to have complications at delivery if she would have premature delivery. I do not have a great answer for the patient of what to do for her pain. She tells me she is not here for pain medication but is very upset that I am not writing her pain medication. I explained to her that unfortunately I am not a dentist that I cannot take care of her dental caries. History & Record Review Discussion w/independent historian: Patient Additional record(s) reviewed:: Prior ED visit Discharge Plan Triage Chief Complaint: Ear Problem Other Complaint: Sore Throat ED Midlevel Provider: Marleni Enriquez ED Provider: Francesco Mason Dx/Rx/DC Orders Clinical Impression: Dental caries, Instructions: ED Dental Cavity Prescriptions: No Action penicillin V potassium 250 mg tablet 500 mg PO 4X/DAY Qty: 40 0RF hydrocodone-acetaminophen [hydrocodone-acetaminophen] 5-325 mg tablet 1 tab PO Q6H PRN (Reason: pain) 2 Days Qty: 8 0RF ibuprofen 600 mg tablet 600 mg PO Q6H PRN PRN (Reason: pain) Qty: 20 0RF penicillin V potassium 250 mg tablet 500 mg PO 4X/DAY Qty: 40 0RF Primary Care Provider: Care Physician,No Primary Referrals: Care Physician,No Primary [Primary Care Provider] - Activity Restrictions/Additional Instructions: Please follow-up with a dentist. Disposition Disposition: Home, Self Care Discharge Date/Time: 05/30/23 21:49
== END 2023-05-30 21:49 | disposition home or self-care (01) ==
PROVIDERS: Emergency Provider Emergency Medicine; Visit Provider Emergency Medicine
DX: O99.619 Diseases of the digestive system complicating pregnancy, unspecified trimester (principal); O99.330 Smoking (tobacco) complicating pregnancy, unspecified trimester; K02.9 Dental caries, unspecified; F17.210 Nicotine dependence, cigarettes, uncomplicated; Z3A.00 Weeks of gestation of pregnancy not specified
CPT/HCPCS: 99282

== ENCOUNTER 2023-08-21 10:09 | Outpatient (CLI) | payer MEDICAID, SELFPAY ==
[2023-08-21 10:52] VITALS: BP 126/88; PULSE 102
[2023-08-21 10:53] VITALS: BMI 35.9
[2023-08-21 10:55] LABS: Color, Urine Yellow (Yellow); Glucose, Dipstick Normal (Normal); Ketone-Dipstick Negative (Negative); Leukocyte Esterase-Dipstick 500 /ul (Negative); Nitrite-Dipstick Positive (Negative); Occult Blood-Urine 25 /ul (Negative); Protein-Dipstick 15 mg/dl (Negative); Urine Bilirubin Dipstick Negative (Negative); Urine Clarity Cloudy (Clear); Urine Urobilinogen 1 mg/dl (Normal)
[2023-08-21] MEDS: Nitrofurantoin Macrocrystals 100 MG Capsule PO (11:44)
--- NOTE | 2023-08-21 19:00 | OB.TRI.NOTE ---
HPI - General HPI Narrative LAWRENCE SY, is a 28 F who presents with lower back pain and fever this morning. Denies any cramping or contractions. Positive movement. PFSH PFSH Medical History (Updated 08/21/23 @ 19:03 by Erica Wallace CNM) Depression Anxiety Alcohol use Back pain Migraine headache History of hiatal hernia Heartburn Smoker Shortness of breath on exertion History of pain when walking Encounter for screening for COVID-19 Asthma Home Medications ?Medication ?Instructions ?Recorded ?Last Taken ?Type vits,calcium no.78-iron 1 tab PO DAILY 07/29/23 08/20/23 History fumarate-folic acid 29 mg-1 mg tablet (Prenatabs FA) ferrous sulfate 325 mg (65 mg 325 mg PO DAILY 08/21/23 08/20/23 History iron) tablet (Feosol) pantoprazole 20 mg tablet,delayed 20 mg PO DAILY 08/21/23 08/20/23 History release (Protonix) Allergy/AdvReac Type Severity Reaction Status Date / Time clavulanic acid (From Allergy Itching Verified 08/21/23 11:25 Augmentin) tramadol Allergy Anaphylaxis Verified 08/21/23 11:25 Family History Other Diabetes Low blood sugar Surgical History (Updated 07/29/23 @ 10:08 by Sue Tubbs) History of back surgery Social History Smoking Status: Current every day smoker tobacco type: cigarettes Tobacco: How many years used: 7 substance use type: does not use ROS Eyes Eyes: Denies blurry vision Cardiovascular Cardiovascular: Reports none; Denies chest pain at rest, chest pain with activity or dizziness Respiratory/Chest Respiratory/Chest: Denies cough or dyspnea Gastrointestinal Gastrointestinal: Reports none and other; Denies diarrhea or vomiting Genitourinary Genitourinary: Denies dysuria Musculoskeletal Musculoskeletal: Reports none Integumentary Integumentary: Reports none; Denies rash Neurologic Neurologic: Denies dizziness, headache(s) or other visual disturbances Psychiatric Psychiatric: Reports none Physical Exam Const alert and no apparent distress General Appearance: cooperative Orientation / Consciousness: awake Exam Limitations: no limitations HEENT normocephalic Eyes General Eye: normal appearance of both eyes Neck full ROM Chest inspection of chest normal Resp normal respiratory effort and normal air movement Effort and Inspection: symmetric chest movement Auscultation: clear to auscultation bilaterally Cardio regular rate GI soft to palpation, non-tender and non-distended Inspection: and other Back/Spine normal ROM Extremity full ROM, normal capillary refill and no calf tenderness Skin no rashes or lesions noted Neuro oriented x3 and CN's II-XII intact bilaterally Psych mental status grossly normal NST FHR Rate Baby A Baseline: 140 Variability:: Moderate Accelerations:: 15 x 15 Decelerations:: None NST Reactive:: Yes Uterine Activity:: None Assessment & Plan (1) 35 weeks gestation of : (2) Back pain affecting : (3) Fever: PLAN: Plan Afebrile UA positive for UTI Macrobid 100 mg PO x1 now and 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
--- NOTE | 2023-08-21 19:05 | DCINST_ITS ---
Discharge Instructions Diet Discharge Diet: No restrictions Activity Discharge Activity: Return to Normal Activity Follow Up Care Test Results: Test results from this visit will be discussed in further detail at your follow- up appointment, if applicable. Discharge Plan Admission Reason For Visit: R/O LABOR Attending Provider: Erica Wallace Primary Care Provider: Rae Gfof Primary Discharge Date/Time: 08/21/23 11:47 Instructions Patient Instructions: Kick Counts, OB Triage: Return to Hospital or Notify Phys ician if you Experience: Discharge Orders/Prescriptions Prescriptions: New nitrofurantoin monohyd/m-cryst [Macrobid] 100 mg capsule 100 mg PO BID Qty: 14 0RF Rx Instructions: Take medication with food to help with GI upset Finish all of medication No Action pantoprazole [Protonix] 20 mg tablet,delayed release (DR/EC) 20 mg PO DAILY ferrous sulfate [Feosol] 325 mg (65 mg iron) tablet 325 mg PO DAILY Prenatabs FA 29-1 mg tablet 1 tab PO DAILY Referrals / Follow Up: Care Physician,No Primary [Primary Care Provider] - Disposition Patient Disposition: Home, Self Care
== END 2023-08-21 11:47 | disposition home or self-care (01) ==
LOC: WPOUT 10:11 → WP 10:12
PROVIDERS: Referring Provider Advanced Practice Midwife; Visit Provider Advanced Practice Midwife
DX: O99.891 Other specified diseases and conditions complicating pregnancy (principal); O23.43 Unspecified infection of urinary tract in pregnancy, third trimester; J45.909 Unspecified asthma, uncomplicated; Z79.899 Other long term (current) drug therapy; F17.210 Nicotine dependence, cigarettes, uncomplicated; M54.50 Low back pain, unspecified; Z3A.35 35 weeks gestation of pregnancy; O26.893 Other specified pregnancy related conditions, third trimester; R50.9 Fever, unspecified; O99.513 Diseases of the respiratory system complicating pregnancy, third trimester; O99.333 Smoking (tobacco) complicating pregnancy, third trimester
CPT/HCPCS: 59025; 59050; 81002; 99221; G0378

== ENCOUNTER 2023-08-23 17:20 | Outpatient (CLI) | payer MEDICAID, SELFPAY ==
[2023-08-23 17:38] VITALS: BP 118/79; PULSE 118
[2023-08-23 17:43] VITALS: RESP 16; TEMP 36.7
--- NOTE | 2023-08-23 17:48 | US_ITS ---
EXAM: US BIOPHYSICAL PROFILE WITHOUT NON-STRESS TESTING CLINICAL INDICATION: Nonreactive NST TECHNIQUE: Real-time ultrasound of the maternal pelvis for biophysical profile evaluation with image documentation. COMPARISON: No relevant prior studies available. FINDINGS: BREATHING MOVEMENTS: Present. Score 2/2. GROSS BODY MOVEMENTS: Present. Score 2/2. TONE: Present. Score 2/2. QUALITATIVE AMNIOTIC FLUID VOLUME: Within normal limits. Score 2/2. LETICIA: Within normal limits, measuring 13 cm. FETUS: Single live intrauterine . HEART RATE: heart rate: 147 bpm. PRESENTATION: Cephalic presentation. PLACENTA: The placenta is fundal with no abnormality identified. US/Biophysical Prof W/O Non Stres IMPRESSION: No acute findings. Normal biophysical profile with score of 8/8. Electronically Signed: Albert Martinez MD at 23:01 EDT ,
[2023-08-23 19:09] VITALS: BMI 35.7
[2023-08-23] MEDS: Betamethasone/Betamethasone 30 MG/5 ML Vial 12 MG IM (19:13)
[2023-08-23 19:41] VITALS: BP 143/94; PULSE 85; TEMP 36.9; O2SAT 98
[2023-08-23] MEDS: Nitrofurantoin Macrocrystals 100 MG Capsule PO (20:18)
[2023-08-23] MEDS: Acyclovir 200 MG Capsule 400 MG PO (20:18)
--- NOTE | 2023-08-23 21:26 | OB.TRI.NOTE ---
HPI - General HPI Narrative LAWRENCE SY, is a 28 F who was sent over from office for extended monitoring due to decelerations. Recently diagnosed with FGR - EFW 7% and plan for delivery at 37 weeks. Maternal Data Information DEBBY Calculator Estimated Delivery Date Method Current WG Current Estimate 09/24/23 Manual 35w 3d PFSH PFS Medical History (Updated 08/23/23 @ 21:35 by Erica Wallace CNM) Depression Anxiety Alcohol use Back pain Migraine headache History of hiatal hernia Heartburn Smoker Shortness of breath on exertion History of pain when walking Encounter for screening for COVID-19 Asthma Home Medications ?Medication ?Instructions ?Recorded ?Last Taken ?Type vits,calcium no.78-iron 1 tab PO DAILY 07/29/23 08/23/23 History fumarate-folic acid 29 mg-1 mg tablet (Prenatabs FA) ferrous sulfate 325 mg (65 mg 325 mg PO DAILY 08/21/23 08/23/23 History iron) tablet (Feosol) nitrofurantoin 100 mg PO BID #14 CAPSULES 08/21/23 08/23/23 Rx monohydrate/macrocrystals 100 mg capsule (Macrobid) pantoprazole 20 mg tablet,delayed 20 mg PO DAILY 08/21/23 08/23/23 History release (Protonix) Allergy/AdvReac Type Severity Reaction Status Date / Time clavulanic acid (From Allergy Itching Verified 08/21/23 11:25 Augmentin) tramadol Allergy Anaphylaxis Verified 08/21/23 11:25 Family History Other Diabetes Low blood sugar Surgical History (Updated 07/29/23 @ 10:08 by Sue Tubbs) History of back surgery Social History Smoking Status: Current every day smoker tobacco type: cigarettes Tobacco: How many years used: 7 substance use type: does not use ROS Eyes Eyes: Denies blurry vision Cardiovascular Cardiovascular: Reports none; Denies chest pain at rest, chest pain with activity or dizziness Respiratory/Chest Respiratory/Chest: Denies cough or dyspnea Gastrointestinal Gastrointestinal: Reports none and other; Denies diarrhea or vomiting Genitourinary Genitourinary: Denies dysuria Musculoskeletal Musculoskeletal: Reports none Integumentary Integumentary: Reports none; Denies rash Neurologic Neurologic: Denies dizziness, headache(s) or other visual disturbances Psychiatric Psychiatric: Reports none Physical Exam Const alert and no apparent distress General Appearance: cooperative and comfortable Exam Limitations: no limitations HEENT normocephalic Eyes General Eye: normal appearance of both eyes Neck full ROM General: normal visual inspection Chest Chest: symmetrical chest wall rise Resp normal respiratory effort and normal air movement Effort and Inspection: symmetric chest movement Auscultation: clear to auscultation bilaterally Cardio regular rate and regular rhythm GI normal to inspection, nondistended, normoactive bowel sounds Back/Spine normal ROM Extremity full ROM and no calf tenderness General Extremity: normal exam except as noted Skin no rashes or lesions noted Neuro CN's II-XII intact bilaterally Psych mental status grossly normal NST FHR Rate Baby A Baseline: 155 Variability:: Moderate Accelerations:: 15 x 15 Decelerations:: None NST Reactive:: Yes and Appropriate for gestational age FHR Category:: Category I Uterine Activity:: None Assessment & Plan (1) growth restriction: COMMENT: EFW 7% (2) Smoker: (3) Scoliosis: PLAN: Plan BPP 10/23 today Give Celestone 12mg IM x 2 doses Extended monitoring Continue Macrobid 100 mg BID- dx UTI earlier this week Dr. Le involved with plan of care
[2023-08-24 03:20] VITALS: BP 137/77; PULSE 91; RESP 14; TEMP 36.3
[2023-08-24] MEDS: Acyclovir 200 MG Capsule 400 MG PO (06:24)
--- NOTE | 2023-08-24 10:45 | PN.OBGYN_ITS ---
Subjective Subjective Patient seen at bedside. Feeling good. Denies any cramps, contractions, loss of fluid or vaginal bleeding. Desires discharge home Objective Data Objective Data Vital Signs: Vital Signs Temp Pulse Resp BP Pulse Ox 97.4 F L 91 14 137/77 H 98 08/24/23 03:20 08/24/23 03:20 08/24/23 03:20 08/24/23 03:20 08/23/23 19:41 Weight: 215 lb Body Mass Index (BMI) 35.7 Radiography Diagnostic Testing: Radiology Impression Biophysical Profile Ultrasound 08/23/23 17:48 IMPRESSION: No acute findings. Normal biophysical profile with score of 8/8. Electronically Signed: Albert Martinez MD at 23:01 EDT , ROS Eyes Eyes: Denies blurry vision Cardiovascular Cardiovascular: Reports none; Denies chest pain at rest, chest pain with activity or dizziness Respiratory/Chest Respiratory/Chest: Denies cough or dyspnea Gastrointestinal Gastrointestinal: Reports none and other; Denies diarrhea or vomiting Genitourinary Genitourinary: Denies dysuria Musculoskeletal Musculoskeletal: Reports none Integumentary Integumentary: Reports none; Denies rash Neurologic Neurologic: Denies dizziness, headache(s) or other visual disturbances Psychiatric Psychiatric: Reports none Physical Exam Const alert and no apparent distress General Appearance: cooperative Orientation / Consciousness: awake Exam Limitations: no limitations HEENT normocephalic Eyes General Eye: normal appearance of both eyes Neck full ROM Chest inspection of chest normal Resp normal respiratory effort and normal air movement Effort and Inspection: symmetric chest movement Auscultation: clear to auscultation bilaterally Cardio regular rate GI soft to palpation, non-tender and non-distended Inspection: and other Back/Spine normal ROM Extremity full ROM, normal capillary refill and no calf tenderness Skin no rashes or lesions noted Neuro oriented x3 and CN's II-XII intact bilaterally Psych mental status grossly normal NST FHR Rate Baby A Baseline: 140 Variability:: Moderate Accelerations:: 15 x 15 Decelerations:: None NST Reactive:: Yes FHR Category:: Category I Uterine Activity:: None Assessment & Plan (1) Scoliosis: (2) Smoker: (3) growth restriction: COMMENT: EFW 7% (4) 35 weeks gestation of : PLAN: Plan NST reactive, Cat. 1 throughout the night BPP 8/ [facility] #2 US in office on Saturday
== END 2023-08-24 08:00 | disposition home or self-care (01) ==
LOC: WPOUT 17:24 → WP 17:25
PROVIDERS: Referring Provider Advanced Practice Midwife; Visit Provider Advanced Practice Midwife
DX: O99.891 Other specified diseases and conditions complicating pregnancy (principal); M41.9 Scoliosis, unspecified; Z3A.37 37 weeks gestation of pregnancy; O99.333 Smoking (tobacco) complicating pregnancy, third trimester; F17.210 Nicotine dependence, cigarettes, uncomplicated; O36.5930 Maternal care for other known or suspected poor fetal growth, third trimester, not applicable or unspecified
CPT/HCPCS: 96372; 59025; 59050 ×2; 76819; G0378 ×2; J0702; 99221

== ENCOUNTER 2023-08-24 19:40 | Outpatient (CLI) | payer MEDICAID, SELFPAY ==
[2023-08-24 19:58] VITALS: BMI 38.6
[2023-08-24 20:00] VITALS: PULSE 106; O2SAT 98
[2023-08-24 20:04] VITALS: BP 128/82; PULSE 102
[2023-08-24] MEDS: Betamethasone/Betamethasone 30 MG/5 ML Vial 12 MG IM (20:08)
== END 2023-08-24 20:17 | disposition home or self-care (01) ==
LOC: WPOUT 19:52 → WP 19:53
PROVIDERS: Visit Provider Advanced Practice Midwife
DX: O36.5930 Maternal care for other known or suspected poor fetal growth, third trimester, not applicable or unspecified (principal); F17.210 Nicotine dependence, cigarettes, uncomplicated; Z3A.35 35 weeks gestation of pregnancy; O99.333 Smoking (tobacco) complicating pregnancy, third trimester; O99.891 Other specified diseases and conditions complicating pregnancy; M41.9 Scoliosis, unspecified
CPT/HCPCS: 96372; G0378; 99221

== ENCOUNTER 2023-08-26 13:37 | Inpatient (IN) | payer MEDICAID, SELFPAY ==
[2023-08-26] VITALS (27 sets, daily range): BP systolic 113–156; BP diastolic 67–97; PULSE 55–80; RESP 14–16; TEMP 36.2–36.8; O2SAT 96–100; BMI 36.4
[2023-08-26 12:42] LABS: Hematocrit 33.1 % (37-47); Hemoglobin 10.9 g/dL (12.0-15.0); Mean Corp Hgb Conc 32.9 g/dL (32-36); Mean Corpuscular Hgb 30.5 pg (27.0-32.0); Mean Corpuscular Volume 92.7 fL (81-99); Mean Platelet Vol. 11.2 fl (6.2-12.0); Platelet Count 228 K/mm3 (150-450); RBC Distribution Width CV 14.2 % (11.6-14.6); RBC Distribution Width SD 47.5 fl (35.1-43.9); Red Blood Count 3.57 M/mm3 (4.2-5.4); White Blood Count 9.6 K/mm3 (4.4-11.0)
--- NOTE | 2023-08-26 12:50 | HP.PCM.OB_ITS ---
HPI - General General Date of Admission: 08/26/23 Date of Service: 08/26/23 Chief Complaint: elevated blood pressure, IUGR HPI Narrative LAWRENCE SY, is a 28 F who presents from the office for evaluation of elevated blood pressures. She denies ECHAVARRIA, vision changes, upper abdominal pain, n/v, ctx, vb, lof. Good FM. Maternal Data Information DEBBY Calculator Estimated Delivery Date Method Current WG Current Estimate 09/24/23 Manual 35w 6d PFSH PFSH Medical History (Updated 08/26/23 @ 12:[address] Marlene Chavez, DO) Depression Anxiety Alcohol use Back pain Migraine headache History of hiatal hernia Heartburn Smoker Shortness of breath on exertion History of pain when walking Encounter for screening for COVID-19 Asthma Home Medications ?Medication ?Instructions ?Recorded ?Last Taken ?Type vits,calcium no.78-iron 1 tab PO DAILY 07/29/23 08/26/23 08:00 History fumarate-folic acid 29 mg-1 mg tablet (Prenatabs FA) ferrous sulfate 325 mg (65 mg 325 mg PO DAILY 08/21/23 08/26/23 08:00 History iron) tablet (Feosol) nitrofurantoin 100 mg PO BID #14 CAPSULES 08/21/23 08/23/23 Rx monohydrate/macrocrystals 100 mg capsule (Macrobid) pantoprazole 20 mg tablet,delayed 20 mg PO DAILY 08/21/23 08/26/23 08:45 History release (Protonix) valacyclovir 1 gram tablet 1,000 mg PO DAILY 08/26/23 08/26/23 08:00 History Allergy/AdvReac Type Severity Reaction Status Date / Time clavulanic acid (From Allergy Itching Verified 08/26/23 11:43 Augmentin) tramadol Allergy Anaphylaxis Verified 08/26/23 11:43 Family History Other Diabetes Low blood sugar Surgical History (Updated 07/29/23 @ 10:08 by Sue Tubbs) History of back surgery Social History Smoking Status: Current every day smoker tobacco type: cigarettes Tobacco: How many years used: 7 substance use type: does not use History Addt'l History: History of IUGR Had ultrasound today showing EFW 2109 g 3% with slowed AC growth velocity BP's mild range in the office NST FHR Rate Baby A Baseline: 140 Variability:: Moderate Accelerations:: None Decelerations:: None Uterine Activity:: no ctx's Vital Signs Vital Signs Vital Signs: 08/26/23 11:41 08/26/23 11:41 08/26/23 11:56 Pulse Rate 73 Blood Pressure 144/92 H 139/91 H BP Systolic 144 139 BP Diastolic 92 91 08/26/23 11:56 08/26/23 12:11 08/26/23 12:11 Pulse Rate 62 66 Blood Pressure 144/94 H BP Systolic 144 BP Diastolic 94 08/26/23 12:29 08/26/23 12:29 08/26/23 12:41 Pulse Rate 60 Blood Pressure 126/88 H 156/96 H BP Systolic 126 156 BP Diastolic 88 96 08/26/23 12:41 Pulse Rate 68 Blood Pressure BP Systolic BP Diastolic Weight Weight: 219 lb 2.232 oz Body Mass Index (BMI) 36.4 Physical Exam Const alert and no apparent distress General Appearance: comfortable HEENT normocephalic Resp normal respiratory effort GI soft to palpation, non-tender and non-distended Narrative: close/thick/high Extremity Extremity Narrative: patellar reflexes 2+ Labs Labs Labs: Blood Type A POSITIVE Hct 33.1 % (37-47) L Hgb 10.9 g/dL (12.0-15.0) L Obstetrics Ultrasound Syphilis Total Ab Non-reactive Hep Bs Antigen Negative (Negative) Hepatitis C Antibody Non-Reactive (Nonreactive) Chlamydia DNA (SAIGE) Negative (Negative) N.gonorrhoeae DNA (SAIGE) Negative (Negative) HIV 1&2 Antibody Non-Reactive (Nonreactive) Miscellaneous Test Assessment & Plan (1) 35 weeks gestation of : PLAN: - Received BMZ 08/22, 08/23 - IUGR as noted below (2) Gestational hypertension: PLAN: - Mild range blood pressures in office and on L&D - Pre e labs in process - No symptoms of pre e (3) growth restriction: PLAN: - EFW today 2019 g 3% with slowed AC growth - Discussed with MFM given newly elevated blood pressures. Recommendation is for delivery [id number] with FGR and concurrent condition such as gHTN. M recommends delivery. Discussed delivery recommendation with patient who desires to proceed. She is anxious and would like to deliver lisbet, as she has concerns regarding FGR. Discussed r/b/a primary section vs induction of labor, and questions answered. Discussed given primip, closed cervix, and IUGR possible need for emergent section and/or intolerance to labor with induction process. Patient would like to discuss plan with her significant other who is on his way. She understands risks of prematurity, and discussed patient with ped life insurance salesperson. (4) Obesity affecting : (5) Anemia affecting : (6) Abnormal glucose affecting : (7) History of herpes genitalis: PLAN: - On acyclovir - No symptoms of an outbreak and no HSV lesions on exam (8) History of drug use: PLAN: - UDS on admission
[2023-08-26 13:00] LABS: Protein, Urine (Random) 25.2 mg/dL (<11.9); Protein:Creat Ratio 168 mg/g CRE (0-200)
[2023-08-26 13:01] LABS: AST(SGOT) 12 U/L (15-37); Alanine Aminotransfer ALT/SGPT 13 U/L (13-56); Creatinine, Serum 0.58 mg/dL (0.55-1.02); EST Glomerular Filtration Rate 134 mL/min (>60); Est Glom Filt Rate - Afr Amer 162 mL/min (>60); Estimated Creatinine Clearance 171.62 ml/min; Uric Acid 4.8 mg/dL (2.6-6.0)
[2023-08-26] MEDS: Lactated Ringers 1,000 ML 999 ML IV (14:15)
[2023-08-26 14:35] LABS: Absolute Lymphocyte Count 2.29 X10^3/uL (0.83-4.51); Absolute Neutrophil Count 6.3 X10^3/uL (2.0-7.7); Basophil# 0.04 X10^3/uL; Basophil% 0.4 % (0-1); Eosinophil# 0.02 X10^3/uL; Eosinophils% 0.2 % (0-5); Hemoglobin 10.8 g/dL (12.0-15.0); Lymphocyte # 2.29 X10^3/ul (0.83-4.51); Lymphocyte % 24.2 % (19-41); Mean Corp Hgb Conc 32.7 g/dL (32-36); Mean Corpuscular Hgb 30.2 pg (27.0-32.0); Mean Corpuscular Volume 92.2 fL (81-99); Mean Platelet Vol. 11.7 fl (6.2-12.0); Monocyte# 0.62 X10^3/uL; Monocyte% 6.6 % (0-10); NRBC Flagged by Analyzer 0 % (0-5); Neutrophil # 6.29 X10^3/uL (2.7-7.7); Neutrophil % 66.5 % (47-70); Platelet Count 236 K/mm3 (150-450); RBC Distribution Width SD 46.9 fl (35.1-43.9); Red Blood Count 3.58 M/mm3 (4.2-5.4); White Blood Count 9.5 K/mm3 (4.4-11.0)
[2023-08-26] MEDS: Lactated Ringers 1,000 ML 150 ML IV (15:13)
[2023-08-26 15:18] LABS: Syphilis Antibodies Non-reactive
[2023-08-26] MEDS: Sodium Citrate/Citric Acid 30 ML UDC PO (16:41)
[2023-08-26] MEDS: Acetaminophen 500 MG Tablet 1000 MG PO ×2 (16:41→23:33)
[2023-08-26 17:05] LABS: Bedside Glucose 78 mg/dL (74-106)
[2023-08-26] MEDS: Cefazolin 2 GM in 0.9% Normal Saline (100mL Bag) 100 ML IV (17:07)
--- NOTE | 2023-08-26 17:27 | PLAC_PTH ---
PATIENT: LAWRENCE SY LOC: [facility] U#:[id number] AGE/SX: 28/F ROOM: WP007 RE08/26/[address]: Dr. Marlene Chavez DO : 1995 BED: 1 DIS: 08/28/2023 SPEC #: [id number] RECD: 08/26/23 22:21 STATUS: ZION KWAKU #: [id number] DASIA: 08/26/23 17:[address]: Marlene Chavez DEPT: SURGICAL PATHOLOGY RECD BY: Gin Medrano ENTERED: 08/27/23 10:11 SP TYPE: PLACENTA OT DR: No Primary Care Phys Tissues: Placenta, NOS Procedures: Surgery Specimen Level V HEADER OPERATION: Primary section PRE-OP DIAGNOSIS: Per RN TISSUE SUBMITTED: Placenta MICROSCOPIC DIAGNOSIS Placenta: Placental disc - third trimester placenta (343 gm). - A Focal area of infarction, intraparenchymal hemorrhage, intervillous and perivillous fibrin deposition (1.2 cm in greatest dimension). Membranes - Marginal to membranous insertion (velamentous insertion). Umbilical cord - three blood vessels and no pathologic diagnosis. SJ: 08/29/2023 MICROSCOPIC DESCRIPTION Slides are reviewed. GROSS DESCRIPTION SPECIMEN: PLACENTA / CLINICAL INFORMATION: A. Weight: 2.01 kg B. Gestational Age: 35 weeks C. Sex: Female PLACENTAL WEIGHT (POST FIXATION): 343 gm PLACENTAL DIMENSIONS: 16.0 x 16.0 x 2.5 cm PLACENTAL SHAPE: Usual ovoid PLACENTAL WEIGHT FOR GESTATIONAL AGE: Within 10-99th percentile MEMBRANES - Present A. Insertion: Marginal B. Site of rupture from edge: at edge of placental disc C. Color of membrane: Brooks-francis D. Abnormalities: None UMBILICAL CORD - Present A. Color: Brooks-francis B. Insertion: Marginal to membranous C. Length: 32.0 cm D. Diameter: 1.5 cm E. Number of vessels: Three F. Abnormalities: None PLACENTAL DISC - Present A. Color of surface: Brooks-francis B. surface abnormalities: None C. Maternal cotyledons: Intact with minimal tears D. Attached retro placental clot: No clot E. Cut surface: Dark red and spongy F. Lesions: Seral sections reveal a firm brooks-white lesion close to the placental floor measuring 1.2cm in greatest dimension. G. Separate clot: Absent SECTIONS SUBMITTED: 1. Umbilical cord, end 2. Umbilical cord, placental end 3. Membrane roll 4. Placental disc, and maternal surfaces, lesion 5. Placental disc, and maternal surfaces 6. Placental disc, and maternal surfaces / 08/28/2023 More sections are submitted as follows: 7- Umbilical cord. / 08/29/2023 TC:5 CPT: 88485
[2023-08-26 18:03] LABS: Amphetamine Urine VISTA NEGATIVE (<1000 ng/mL); Barbiturate Urine VISTA NEGATIVE (< 200 ng/mL); Benzodiazepine Urine VISTA NEGATIVE (< 200 ng/mL); Cocaine Urine VISTA NEGATIVE (< 300 ng/mL); Ecstacy Urine VISTA NEGATIVE (< 500 ng/mL); Methadone Urine VISTA NEGATIVE (< 300 ng/mL); PCP Urine VISTA NEGATIVE (< 25 ng/mL); THC Urine VISTA NEGATIVE (< 50 ng/mL); Vista UDS pH Range 6
--- NOTE | 2023-08-26 18:23 | PCM.OPRPT ---
Problems Associated Problem List Diagnoses (1) History of drug use: (2) History of herpes genitalis: (3) Abnormal glucose affecting : (4) Anemia affecting : (5) Obesity affecting : (6) Gestational hypertension: (7) Scoliosis: (8) growth restriction: (9) 35 weeks gestation of : Report of Operation Date of Procedure: 08/26/23 Pre-Operative Diagnosis: 35 week gestation, gHTN, IUGR, obesity in , history drug use Post-Operative Diagnosis: As above Surgery/Procedure Performed:: PLTCS via pfannenstiel incision Description of Surgical Findings:: VFI in cephalic presentation with meconium stained fluid and loose nuchal cord x 1. Apgars 8, 9. Normal appearing uterus and bilateral adnexa. Surgeon: Marlene Chavez hotel houseman: Lisa WADSWORTH Type of Anesthesia: Spinal Special Medications: None Specimen's removed: Placenta Drains: Jones Estimated Blood Loss (mL): 700 Fluids Replaced: 850 mL Description of Procedure: Indications: Pt is 35w6d with IUGR and she was admitted over the weekend for prolonged monitoring given non reactive NST in the office. She was given a course of BMZ over the weekend. She presented to the office for follow up after admission, and had mild range blood pressures in the office. She was sent to L&D for further evaluation. On labor and delivery she had mild range blood pressures. Cervix was closed. [facility] recommended delivery given IUGR 3% and gHTN. Discussed r/b/a primary section vs induction of labor with the patient and she requested to proceed with an elective primary section given unfavorable cervix and IUGR. Procedure: The patient was taken to the operating room where spinal anesthesia was found to be adequate. She was prepped and draped in the dorsal supine position with a leftward tilt. A Pfannenstiel skin incision was made with a scalpel and carried down to the underlying layer of fascia. The fascia was incised in midline. The fascial incision was extended laterally using Power scissors. The fascia was dissected off of the rectus muscles with sharp dissection both cephalad and caudad. The rectus muscles were in the midline. The peritoneum was entered bluntly with good visualization of the bladder. The peritoneal incision was extended with lateral traction. A bladder blade was inserted. A low transverse incision was made on the uterus with a scalpel. The uterine incision was extended with blunt traction in a cephalad and caudad direction. Membranes were ruptured for light meconium stained fluid. A vigorous viable female infant was delivered in vertex presentation with a loose nuchal cord x 1 noted which was reduced during delivery. The cord was clamped and cut after a slight delay and the infant was handed off to waiting nursery staff. The placenta was removed with manual extraction. The placenta was sent to pathology for review. The uterus was exteriorized. The uterus was cleared of all clot and debris. The uterine incision was was closed with 1-0 Vicryl in a running locked fashion. The uterus was placed back in the abdomen. Micah was placed over the lower uterine segment. Hemostasis was noted. The peritoneum was closed with 3-0 Vicryl in a running fashion. The subfascial space was noted to be hemostatic. The fascia was closed STRATAFIX in a running fashion. The subcutaneous space was irrigated and made hemostatic with Bovie cautery. Subcutaneous space was reapproximated with 3-0 Vicryl. The skin was closed with 4 Monocryl in a subcuticular fashion. A dressing was placed. Instrument, sharp, sponge counts were correct and the patient was taken to the recovery in stable condition. Grafts/Implants Used: None Procedure Start Time: 17:22 Complications None Admit VTE Documentation VTE Present on Admission: No VTE Mechan Device Prophylaxis: SCD's
[2023-08-26] MEDS: Oxytocin 15 Units/NS 250ml 15 UNITS/250 ML IV.SOLN 83 UNITS IV (18:35)
[2023-08-26] MEDS: Ketorolac 30 MG/ML Syringe IV (19:02)
[2023-08-26] MEDS: Lactated Ringers 1,000 ML 100 ML IV (21:35)
[2023-08-26 23:00] LABS: Bedside Glucose 148 mg/dL (74-106)
[2023-08-27] MEDS: DiphenhydrAMINE 25 MG Capsule PO (02:04)
[2023-08-27] MEDS: Ketorolac 30 MG/ML Syringe IV ×3 (02:04→14:57)
[2023-08-27] MEDS: 0.9% Saline Lock 10 ML Syringe IV ×2 (02:04→08:48)
[2023-08-27 02:35] VITALS: BP 130/82; PULSE 64; RESP 16; TEMP 36.6; O2SAT 95
[2023-08-27 03:57] VITALS: BP 138/80; PULSE 64; RESP 16; TEMP 36.6; O2SAT 96
[2023-08-27] MEDS: Enoxaparin 40 MG/0.4 ML Syringe SC (05:22)
[2023-08-27 05:34] LABS: Hematocrit 27.8 % (37-47); Hemoglobin 9.1 g/dL (12.0-15.0); Mean Corp Hgb Conc 32.7 g/dL (32-36); Mean Corpuscular Hgb 30.8 pg (27.0-32.0); Mean Corpuscular Volume 94.2 fL (81-99); Mean Platelet Vol. 10.9 fl (6.2-12.0); Platelet Count 191 K/mm3 (150-450); RBC Distribution Width CV 14.1 % (11.6-14.6); RBC Distribution Width SD 47.9 fl (35.1-43.9); Red Blood Count 2.95 M/mm3 (4.2-5.4); White Blood Count 12.3 K/mm3 (4.4-11.0)
[2023-08-27 05:46] LABS: Bedside Glucose 90 mg/dL (74-106)
[2023-08-27] MEDS: Acetaminophen 500 MG Tablet 1000 MG PO ×3 (06:32→18:57)
[2023-08-27 08:42] VITALS: BP 126/78; PULSE 58; RESP 16; TEMP 36.6; O2SAT 96
[2023-08-27 12:35] VITALS: BP 137/85; PULSE 68; RESP 16; TEMP 36.5; O2SAT 95
--- NOTE | 2023-08-27 12:51 | PCM.PN.OB ---
Subjective Subjective Denies complaints other than mild midline pain. Objective Data Objective Data Vital Signs: Vital Signs Temp Pulse Resp BP Pulse Ox O2 Del Method 97.7 F L 68 16 137/85 H 95 Room Air 08/27/23 12:35 08/27/23 12:35 08/27/23 12:35 08/27/23 12:35 08/27/23 12:35 08/27/23 12:35 Oxygen Delivery Method Room Air Weight: 219 lb 2.232 oz Body Mass Index (BMI) 36.4 Intake & Output: Intake and Output for Last 24 Hours 08/25/23 08/26/23 08/27/23 23:59 23:59 23:59 Intake Total 2360.0 / 2360.0 1000 / 1000 Output Total 750 / 750 750 / 750 Balance 1610.0 / 1610.0 250 / 250 Lab / Micro Data 08/27/23 05:27 08/26/23 12:25 Labs: Laboratory Results - last 24 hr 08/26/23 12:25: Creatinine 0.58, Estim Creat Clear Calc 171.62, Est GFR (MDRD) Af Amer 162, Est GFR (MDRD) Non-Af 134, Uric Acid 4.8, AST 12 L, ALT 13, U Random Total Protein 25.2 H, Urine Creatinine 150.00, Protein/Creatinin Ratio 168 08/26/23 14:15: WBC 9.5, RBC 3.58 L, Hgb 10.8 L, Hct 33.0 L, MCV 92.2, MCH 30.2, MCHC 32.7, RDW Std Deviation 46.9 H, RDW Coeff of Josh 14.0, Plt Count 236, MPV 11.7, Immature Gran % (Auto) 2.100 H, Neut % (Auto) 66.5, Lymph % (Auto) 24.2, [place] % (Auto) 6.6, Eos % (Auto) 0.2, Baso % (Auto) 0.4, Absolute Neuts (auto) 6.3, Absolute Lymphs (auto) 2.29, Nucleated RBC % 0, Syphilis Total Ab Non-reactive, Blood Type A POSITIVE, Antibody Screen NEGATIVE 08/26/23 14:30: Urine Opiates Screen NEGATIVE, Urine Methadone Screen NEGATIVE, Ur Barbiturates Screen NEGATIVE, Ur Phencyclidine Scrn NEGATIVE, Ur Amphetamines Screen NEGATIVE, MDMA (Ecstasy) Screen NEGATIVE, U Benzodiazepines Scrn NEGATIVE, Urine Cocaine Screen NEGATIVE, U Cannabinoids Screen NEGATIVE, Ur Drug Screen Comment 08/26/23 16:47: POC Glucose 78 08/26/23 22:38: POC Glucose 148 H 08/27/23 05:20: POC Glucose 90 08/27/23 05:27: WBC 12.3 H, RBC 2.95 L, Hgb 9.1 L, Hct 27.8 L, MCV 94.2, MCH 30.8, MCHC 32.7, RDW Std Deviation 47.9 H, RDW Coeff of Josh 14.1, Plt Count 191, MPV 10.9 Physical Exam Const alert, oriented x3 and no apparent distress HEENT normocephalic GI soft to palpation, non-tender and non-distended GI Narrative: fundus firm, mid & below umbilicus Incision - bandage c/d/i Extremity normal to inspection and no calf tenderness Assessment & Plan (1) Gestational hypertension: QUALIFIERS: Trimester: third trimester Qualified Code(s): O13.3 - Gestational [-induced] hypertension without significant proteinuria, third trimester COMMENT: POD#1 (2) Delivery by section: PLAN: Plan Heme - HDS, cbc reviewed GI/ - no issues Gestational hypertension - BP's normal to minimal elevation ROutine care
[2023-08-27 17:10] VITALS: BP 136/85; PULSE 67; RESP 17; TEMP 36.4
[2023-08-27 19:36] VITALS: BP 137/90; PULSE 68; RESP 17; TEMP 36.7; O2SAT 97
[2023-08-27] MEDS: Ibuprofen 600 MG Tablet PO (20:58)
[2023-08-28] MEDS: Acetaminophen 500 MG Tablet 1000 MG PO ×2 (01:05→06:18)
[2023-08-28 01:15] VITALS: BP 137/89; PULSE 76; RESP 17; TEMP 36.9; O2SAT 97
[2023-08-28] MEDS: Ibuprofen 600 MG Tablet PO ×2 (03:11→08:33)
[2023-08-28] MEDS: Enoxaparin 40 MG/0.4 ML Syringe SC (06:18)
[2023-08-28 08:00] VITALS: BP 148/93; PULSE 61; RESP 16; TEMP 36.8; O2SAT 98
--- NOTE | 2023-08-28 08:30 | PCM.PN.OB ---
Subjective Subjective Feeling good. Pain controlled. Bottle feeding. Objective Data Objective Data Vital Signs: Vital Signs Temp Pulse Resp BP Pulse Ox O2 Del Method 98.5 F 76 17 137/89 H 97 Room Air 08/28/23 01:15 08/28/23 01:15 08/28/23 01:15 08/28/23 01:15 08/28/23 01:15 08/28/23 01:15 Oxygen Delivery Method Room Air Weight: 99.4 kg Body Mass Index (BMI) 36.4 Intake & Output: Intake and Output for Last 24 Hours 08/26/23 08/27/23 08/28/23 23:59 23:59 23:59 Intake Total 2360.0 / 2360.0 1000 / 1000 Output Total 750 / 750 950 / 950 Balance 1610.0 / 1610.0 50 / 50 Lab / Micro Data 08/27/23 05:27 08/26/23 12:25 Physical Exam Const alert General Appearance: cooperative GI GI Narrative: soft, moderate distention, fundus firm, appropriately tender. Abdominal bandage clean dry and intact Assessment & Plan (1) Delivery by section: (2) History of drug use: (3) Obesity affecting : QUALIFIERS: Trimester: third trimester Obesity type affecting : unspecified obesity Qualified Code(s): O99.213 - Obesity complicating , third trimester (4) Gestational hypertension: QUALIFIERS: Trimester: third trimester Qualified Code(s): O13.3 - Gestational [-induced] hypertension without significant proteinuria, third trimester COMMENT: POD#1 PLAN: BP check in 72 hours PLAN: Plan discharge home
--- NOTE | 2023-08-28 08:34 | DS.PCM_ITS ---
Providers Date of Admission: 08/26/23 Date of Discharge: 08/28/23 Primary Care Physician: Rae Primary Care Phys Reason For Visit: C SECTION Diagnosis Discharge Diagnosis (1) Delivery by section: Status: Acute (2) History of drug use: Status: Acute Code(s): F19.91 - Other psychoactive substance use, unspecified, in remission (3) Obesity affecting : Status: Acute Code(s): O99.210 - Obesity complicating , unspecified trimester Qualifiers: Trimester: third trimester Obesity type affecting : u nspecified obesity Qualified Code(s): O99.213 - Obesity complicating , third trimester (4) Gestational hypertension: Status: Acute Code(s): O13.9 - Gestational [-induced] hypertension without significant proteinuria, unspecified trimester Qualifiers: Trimester: third trimester Qualified Code(s): O13.3 - Gestational [-induced] hypertension without significant proteinuria, third trimester Plan: BP check in 72 hours Plan discharge home Medications at Discharge Home Medications vits,calcium no.78-iron fumarate-folic acid 29 mg-1 mg tablet (Prenatabs FA) 1 tab PO DAILY 07/29/23 ferrous sulfate 325 mg (65 mg iron) tablet (Feosol) 325 mg PO DAILY 08/21/23 pantoprazole 20 mg tablet,delayed release (Protonix) 20 mg PO DAILY 08/21/23 Hospital Course Operations section Procedures None Summary of Care Provided Minutes Spent on Discharge: 21 Hospital Course: Admitted for IUGR and gestational HTN. Delivered by . Uncomplicated . BP mild. Asymptomatic Physical Exam Const alert General Appearance: cooperative GI GI Narrative: soft, moderate distention, fundus firm, appropriately tender. Abdominal bandage clean dry and intact Weight / BMI Weight Weight: 99.4 kg Body Mass Index (BMI) 36.4 ABG / Lab / Microbiology Data 08/27/23 05:27 08/26/23 12:25 D/C Instructions Discharge Diet: No restrictions May resume sexual activity in: 4-6 weeks Lifting Restrictions: 20 pounds Additional Activity Instructions: Nothing in the vagina for 4-6 weeks. You may return to work/school in 6 weeks. Call your doctor if your incision/area has: Continuous Slow Oozing, Sudden Increased Bleeding, Increased Pain/ Swelling, Increased Redness and Foul Smelling Discharge Call your doctor if you observe: Fever of 101 or Higher and Using more than 1 pad per hour (for 2 hours) Suture Line Care: Avoid Pulling/Pushing and Avoid Pinching/Bending Cleanse incision/area with: Keep Dressing Clean & Dry Please Follow Up With: Olga Pacheco MD When: Call to make an appointment for an incision check in 1-2 [phone]. You will need a post check in 6 weeks. Meaningful Use Info Meaningful Use Meaningful Use Diagnoses (Choose all that apply): None applicable Ischemic Stroke Statin Dosing Therapy Reference: STATIN DOSE THERAPY REFERENCE: * Patients > 75 years receive moderate or high dose statin therapy. * Patients 75 years or YOUNGER should receive HIGH intensity statin dose unless contraindicated. You will be required to document reason for non-treatment if statin daily dose does not meet guidelines. HIGH DOSE STATIN THERAPY DAILY Atorvastatin > than or = to 40 mg Rosuvastatin > than or = to 20 mg Amlodipine + Atorvastatin > than or = to 2.5/40 mg Ezetimibe + Simvastatin 10/80 mg Simvastatin 80mg Discharge Plan Admission Admit Date/Time: 08/26/23 13:37 Primary Reason for Your Visit: IUGR labor and & delivery Attending Provider: Marlene Chavez Primary Care Provider: Care Physician,Rae Primary Discharge Orders/Prescriptions Prescriptions: Continued pantoprazole [Protonix] 20 mg tablet,delayed release (DR/EC) 20 mg PO DAILY ferrous sulfate [Feosol] 325 mg (65 mg iron) tablet 325 mg PO DAILY Prenatabs FA 29-1 mg tablet 1 tab PO DAILY Discontinued nitrofurantoin monohyd/m-cryst [Macrobid] 100 mg capsule 100 mg PO BID Qty: 14 0RF Rx Instructions: Take medication with food to help with GI upset Finish all of medication valacyclovir 1 gram tablet 1,000 mg PO DAILY Referrals / Follow Up: Care Physician,No Primary [Primary Care Provider] - Disposition Disposition (needs filled in before D/C Order can be placed): Home, Self Care
--- NOTE | 2023-08-28 10:44 | NURSING ---
[id number] dr chatman notified of pts BP of 148/93- pt instructed to follow up early next week for a bp check
--- NOTE | 2023-08-28 11:04 | NURSING ---
1100 emphasized with the pt the need to follow up early next week with a BP check and reviewed in depth the s/s of PRE E and when to call the doctor- pt states that she is able to take her BP at home and she was given the parameter of SBP 160 or DBP 0f 110 to call the doctor immediately. Pt also given the c section incision care sheet and verbalizes when to call the doctor. Pt has a follow up appointment for baby scheduled tomorrow
--- NOTE | 2023-08-28 15:07 | CASEMGMT ---
Social Work Assessment Labor and Delivery Unit Patient Address: [place] [address] Phone number: [phone] Date of Referral: 08/26/23 Time of Referral:? [id number] Referred By: Marlene Chavez Date of Intervention: ??08/27/23 Time of Intervention:? 1500 Reason for Referral:? anxiety, depression, resources, hx drug use Charbel completed chart review and acknowledges social work consult due to maternal mental health and history of drug use. Sw presented to bedside and introduced self to mother of baby (HOLLIE- Wendy). Sw completed psychosocial assessment and asked MOB to complete [place] Depression Scale. History obtained from: medical records, MOB Household composition: HOLLIE states that she and father of baby (JOHN- [facility]) are currently residing at paternal grandparents home. [place] baby will also reside with them when ready for discharge. MOB denies any issues or concerns with current housing at this time. Patient's parent/guardian status: HOLLIE states that she and JOHN have been together for 5 years after meeting on [employer]. MOB denies any issues or concerns with domestic violence or intimate partner violence. ? - MOB states that she and JOHN broke up for 4-5 months last summer, but got back together in November, and then found out she was in December. ? Medical History: ?HOLLIE is 28 year old female who is 1, para 0- now 1 following labor and delivery of . HOLLIE received routine care during with [facility]. HOLLIE delivered baby via emergency under general anesthesia at 35 weeks gestation due to concerns medical condition of HOLLIE. Baby girl, named Addie Bolton, was born weighing 4lb 7oz with apgars of 9 and 9 at one and five minutes of life respectfully. Baby will be followed by [facility] pediatrics. HOLLIE is using formula to feed baby. Educational Status:? MOB states that dad completed high school, MOB completed the 10th grade. Financial Status: FOB is gainfully employed outside of the home working for [employer] MOB is unemployed at this time. Infant Supplies:?? HOLLIE states that she has obtained all necessary baby supplies for baby including: car seat, safe sleep space, clothes, diapers and wipes. Childcare/Caregiver(s):? MOB reports to being the primary caregiver to baby along with FOB when he is not at work. Transportation:?? Both parents drive and have reliable means of transportation Programs/Agencies Involved: ???HOLLIE is currently receiving services through [employer] (insurance and SNAP). HOLLIE was informed that she has 30 days to get baby added to her Medicaid insurance- MOB expressed understanding. HOLLIE also has WIC and called them to inform them that baby has been born. HOLLIE is receptive to getting connected to [facility]. HOLLIE is also seeing a counselor at [facility] (Shruthi). Charbel asked HOLLIE to get appointment scheduled with Shruthi, HOLLIE states that she did and it is scheduled for 09/05 at 11:00. Children Services/Legal Issues:???No former involvement with Children Services. Sw informed MOB of sw need to make referral to [facility] due to maternal substance use history. MOB expressed understanding. - Charbel called [facility] and spoke to hotline screener, Yamilka. Yamilka informed this sw'er that the referral was screened in and a worker will be meeting with HOLLIE post discharge. Behavioral Health Issues: ??Mental Health History:?HOLLIE denies any mental health history for FOB. MOB states that she has been diagnosed with anxiety, depression and possibly BiPolar and ADHD. HOLLIE was prescribed ativan historically, but has not taken it for some time. HOLLIE denies any other medications to help manage her mental health symptoms at this time. ?? Substance Use History:?HOLLIE disclosed using Heroin laced with fentanyl during the 4-5 months that she and FOB were broken up. MOB denies any use once learning of in December. ? Family History:??HOLLIE states that there are some distance family members that have substance use history, but none of her parents. Sw educated MOB on importance of understanding and utilizing healthy and appropriate coping skills during this period and not seeking comfort in the form of drugs and alcohol. MOB expressed understanding. ??? Drug Screens: ??MOB and baby urine screens on admission were negative. Baby meconium still pending. Family/Social Stressors:? MOB denies any issues or concerns at this time. Support Systems: MOB states that JOHN and her parents and sister are her biggest supports at this time Depression/Shaken Baby/Safe Sleeping:? Charbel educated MOB at length regarding signs and symptoms of baby blues and depression and anxiety. MOB states that if she were to struggle with her mental health during this period, FOB would be able to recognize that and would know how to help and support her. MOB completed [place] depression scale, her score was a 3. Sw provided support and education. Sw educated MOB on shaken baby prevention and ABCs of safe sleep, MOB expressed understanding. ASSESSMENT:? MOB and baby admitted following labor and delivery. MOB observed to provide hands on and loving care to baby throughout duration of assessment. MOB expressed understanding of need for sw to make referral to Children Services. MOB with mental health and substance use history. MOB talkative and engaging throughout assessment. MOB states to having all necessary items for baby and adequate natural supports in place. - Children Services screened the referral in and an assigned overhead line worker will meet with MOB at home post discharge. PLAN:? MOB and baby to be discharged when medically ready. ?No other services requested or indicated. Deejay Hayden, BLANKER PRESS OPERATOR, UNIT SECY
[2023-08-30 12:27] LABS: Pathology Specimen OB SEE PATHOLOGY REPORT
== END 2023-08-28 11:00 | disposition home or self-care (01) | DRG 540 ==
LOC: WPOUT 13:46 → WP 17:33
PROVIDERS: Admitting Provider Obstetrics & Gynecology; Referring Provider Obstetrics & Gynecology; Visit Provider Obstetrics & Gynecology
DX: O36.5930 Maternal care for other known or suspected poor fetal growth, third trimester, not applicable or unspecified (principal); O99.214 Obesity complicating childbirth; D64.9 Anemia, unspecified; F17.210 Nicotine dependence, cigarettes, uncomplicated; O13.4 Gestational [pregnancy-induced] hypertension without significant proteinuria, complicating childbirth; O69.81X0 Labor and delivery complicated by cord around neck, without compression, not applicable or unspecified; Z37.0 Single live birth; O99.334 Smoking (tobacco) complicating childbirth; O99.02 Anemia complicating childbirth; O77.0 Labor and delivery complicated by meconium in amniotic fluid; Z3A.35 35 weeks gestation of pregnancy
CPT/HCPCS: 59025; 59050; 76819; 80307; 82565; 82570; 82962; 84156; 84450; 84460; 84550; 85025; 85027; 86780; 86850; 86900; 86901; 88307; 96372; 99221; J7120; A4216; G0378; J0702; J2405

== ENCOUNTER 2023-09-02 18:10 | Emergency (ER) | payer MEDICAID, SELFPAY ==
[2023-09-02 18:12] VITALS: BP 152/109; PULSE 96; RESP 18; TEMP 36.3; O2SAT 98; BMI 34.1
--- NOTE | 2023-09-02 19:08 | ED.RN ---
Pt's name was called for room placement. Unable to find pt. Called multiple times with no response.
== END 2023-09-02 19:13 | disposition left against medical advice (07) ==
LOC: ED 19:13
DX: Z53.21 Procedure and treatment not carried out due to patient leaving prior to being seen by health care provider (principal)

== ENCOUNTER 2024-07-13 20:32 | Emergency (ER) | payer MEDICAID, SELFPAY ==
[2024-07-13 20:33] VITALS: BP 149/90; PULSE 110; RESP 18; TEMP 36.8; O2SAT 100; BMI 41.9
--- NOTE | 2024-07-13 20:53 | ED.VIS.DENTA ---
HPI History of Present Illness Chief Complaint: Dental Detail of Chief Complaint: Right lower teeth pain Informant: patient Onset/Context/Timing Onset: Weeks and Month(s) Context: Sudden Onset Timing: Continuous and Waxes and wanes Quality: Pain worse with cold water or liquids Location: Multiple lower teeth Current Severity: Mild Maximum Severity: Severe Worsened by: Cold liquid Relieved by: - (Nothing) Associated Symptoms Assocated Symptom - Dental: cold sensitivity; Negative for fever, jaw swelling, face swelling or hot sensitivity Narrative Narrative: Patient is a 28-year-old female. She states she has poor teeth. She attributes to . She was seen at dental clinic. After she delivered she went back and was told that she would have to find another dentist. She reports she was not told why. She has contacted a couple oral surgeons and she was told they do not take her insurance. Patient denies fever, chills night sweats. Patient denies difficulty opening or closing her mouth completely. Patient denies change in voice or drooling. Patient has no history of medic fever, heart murmur, SBE or mitral valve prolapse. Patient has allergy to Augmentin with itching. Patient was prescribed clindamycin at outside facility. She admits she was seen at another ER earlier this afternoon. She states they injected her jaw with no improvement. Prior similar symptoms: Yes Recent Illness/Hospitalization: No PFSH PFSH Medical History Genital herpes affecting History of prior with IUGR Pre-eclampsia Depression Anxiety Alcohol use Back pain Migraine headache History of hiatal hernia Heartburn Smoker Shortness of breath on exertion History of pain when walking Encounter for screening for COVID-19 Asthma Home Medications ?Medication ?Instructions ?Recorded ?Last Taken ?Type vits,calcium no.78-iron 1 tab PO DAILY 07/29/23 08/26/23 08:00 History fumarate-folic acid 29 mg-1 mg tablet (Prenatabs FA) ferrous sulfate 325 mg (65 mg 325 mg PO DAILY 08/21/23 08/26/23 08:00 History iron) tablet (Feosol) pantoprazole 20 mg tablet,delayed 20 mg PO DAILY 08/21/23 08/26/23 08:45 History release (Protonix) hydrocodone-acetaminophen 5-325mg 1 tab PO Q6H PRN PRN Pain 3 days 07/13/24 Unknown Rx 5mg-325mg #10 TABLETS Allergy/AdvReac Type Severity Reaction Status Date / Time clavulanic acid (From Allergy Itching Verified 07/13/24 20:37 Augmentin) tramadol Allergy Anaphylaxis Verified 07/13/24 20:37 Family History Other Diabetes Low blood sugar Surgical History History of back surgery Social History Smoking Status: Current every day smoker tobacco type: cigarettes Tobacco: How many years used: 7 substance use type: does not use ROS ROS ED Constitutional Constitutional ED: Denies chills, fever(s), subjective or sweats Eyes Eyes: Denies blurry vision or change in vision ENT ENT ED: Denies ear pain, rhinorrhea or sore throat Cardiovascular Cardiovascular: Denies chest pain Respiratory/Chest Respiratory/Chest: Denies dyspnea or dyspnea on exertion Gastrointestinal Gastrointestinal: Denies nausea or vomiting Integumentary Denies rash Hematologic/Lymphatic Hematologic/Lymphatic: Denies easy bruising EXAM Physical Exam Const Vital Signs: 07/13/24 20:33 Temperature 98.3 F Temperature Source Temporal Pulse Rate 110 H Respiratory Rate 18 Blood Pressure 149/90 H Blood Pressure Mean 109 Pulse Ox 100 Oxygen Delivery Method Room Air Positive well nourished and well developed Constitutional Narrative: Patient's BMI is 41.9. She appears slightly uncomfortable. She appears unhappy as well. She states she would like something to take care of the pain. General Appearance ED: well developed HEENT HEENT Narrative: Head is atraumatic normocephalic. Ears normal. TMs normal. Nares patent. Posterior pharynx out erythema or exudate. Uvula midline. No deviation of protrusion. Patient has numerous dental caries into the enamel, dentin and pulp even with erosion down to the gumline. There is inflammation of the gum where tooth #30 would be. There is evidence of periodontal disease as well as gingivitis. There is no facial swelling. There is no facial cellulitis. Trachea is midline. There is no stridor. Eyes PERRL and EOMs intact bilaterally Neck supple and no JVD General: normal visual inspection, anterior neck swelling and tenderness; Negative for submandibular swelling Lymph Lymphatic: lymphadenopathy Resp normal respiratory effort, no retractions and clear to auscultation bilaterally Cardio regular rate, regular rhythm, S1 normal heart sound, S2 normal heart sound and no murmurs Neuro oriented x3 and CN's II-XII intact bilaterally Sensorium / Orientation: alert Psych mental status grossly normal Skin no rashes or lesions noted and no wounds MDM MDM MDM Narrative Medical decision making narrative: Patient has dental pain due to numerous cavities. Her history is consistent with irreversible pulpitis. Since she has had sensitivity to cold liquid for greater than 2 weeks she now has irreversible pulpitis and no longer has reversible pulpitis. She was told she will need to see a dentist to have her teeth extracted. Nothing will alleviate the pain. History & Record Review Additional record(s) reviewed:: Prior ED visit (Patient was seen mid May by Dr. Varner for dental pain. She was seen mid-March for dental pain as well.) Discharge Plan Triage Chief Complaint: Dental ED Provider: Aidan Kraus Dx/Rx/DC Orders Clinical Impression: Symptomatic irreversible pulpitis, Dental caries extending into pulp, Dental caries extending into dentine, Chronic periodontal disease, Gingivitis Instructions: ED Dental Cavity Prescriptions: New hydrocodone-acetaminophen 5-325 mg tablet 1 tab PO Q6H PRN PRN (Reason: Pain) 3 Days Qty: 10 0RF No Action pantoprazole [Protonix] 20 mg tablet,delayed release (DR/EC) 20 mg PO DAILY ferrous sulfate [Feosol] 325 mg (65 mg iron) tablet 325 mg PO DAILY Prenatabs FA 29-1 mg tablet 1 tab PO DAILY Primary Care Provider: Care Physician,No Primary Referrals: Care Physician,No Primary [Primary Care Provider] - Activity Restrictions/Additional Instructions: You need to contact the dentist for definitive care. Your pain will not go away until you are seen by a dentist. Print Language: Pashto Disposition Disposition: Home, Self Care
[2024-07-13 21:41] VITALS: BP 167/87; PULSE 72; RESP 16; TEMP 36.8; O2SAT 99
[2024-07-13] MEDS: HYDROcodone Bitartrate/Apap 5/325 Tablet PO (22:16)
== END 2024-07-13 22:17 | disposition home or self-care (01) ==
PROVIDERS: Emergency Provider Emergency Medicine; Visit Provider Emergency Medicine
DX: K04.02 Irreversible pulpitis (principal); K05.10 Chronic gingivitis, plaque induced; K02.9 Dental caries, unspecified; Z88.1 Allergy status to other antibiotic agents; F17.210 Nicotine dependence, cigarettes, uncomplicated
CPT/HCPCS: 99282

== ENCOUNTER 2024-11-12 17:15 | Emergency (ER) | payer MEDICAID, SELFPAY ==
[2024-11-12 17:15] VITALS: BP 152/104; PULSE 123; RESP 18; TEMP 37.3; O2SAT 98; BMI 42.7
--- NOTE | 2024-11-12 17:46 | ED.VIS.DENTA ---
HPI History of Present Illness Chief Complaint: Dental Narrative Narrative: 29-year-old female who denies significant past medical history presents with left-sided jaw pain that she has had for the last 2 months. She states she is not sure if she has an ear infection or it has something to do with her teeth. She is trying to see a dentist, but states she does not have an appointment till January, approximately 2 months from now. She has pain and the left side of her cheek near the parotid gland area. She has known dental caries, and states that her wisdom tooth in her left lower jaw is coming in as well. She denies any fevers or chills, no nausea or vomiting, no difficulty swallowing or breathing. Pain radiates from her left jaw down to her neck. She was a former smoker but quit approximately 1 year ago. [facility] Medical History Genital herpes affecting History of prior with IUGR Pre-eclampsia Depression Anxiety Alcohol use Back pain Migraine headache History of hiatal hernia Heartburn Smoker Shortness of breath on exertion History of pain when walking Encounter for screening for COVID-19 Asthma Home Medications ?Medication ?Instructions ?Recorded ?Last Taken ?Type vits,calcium no.78-iron 1 tab PO DAILY 07/29/23 08/26/23 08:00 History fumarate-folic acid 29 mg-1 mg tablet (Prenatabs FA) ferrous sulfate 325 mg (65 mg 325 mg PO DAILY 08/21/23 08/26/23 08:00 History iron) tablet (Feosol) pantoprazole 20 mg tablet,delayed 20 mg PO DAILY 08/21/23 08/26/23 08:45 History release (Protonix) hydrocodone-acetaminophen 5-325mg 1 tab PO Q6H PRN PRN Pain 3 days 07/13/24 Unknown Rx 5mg-325mg #10 TABLETS fluconazole 150 mg tablet 150 mg PO DAILY 1 dose #1 TAB 11/12/24 Unknown Rx ibuprofen 600 mg tablet 600 mg PO TID PRN pain #20 tabs 11/12/24 Unknown Rx penicillin V potassium 500 mg 500 mg PO TID 10 days #30 tabs 11/12/24 Unknown Rx tablet Allergy/AdvReac Type Severity Reaction Status Date / Time clavulanic acid (From Allergy Itching Verified 11/12/24 17:15 Augmentin) tramadol Allergy Anaphylaxis Verified 11/12/24 17:15 Family History Other Diabetes Low blood sugar Surgical History History of back surgery Social History Smoking Status: Current every day smoker tobacco type: cigarettes Tobacco: How many years used: 7 substance use type: does not use ROS ROS ED ROS Narrative Review of systems positive for left-sided jaw pain/dental pain. Worse with attempted opening mouth. No fevers or chills, no nausea or vomiting, no difficulty swallowing or breathing. EXAM Physical Exam Narrative Exam Narrative: Afebrile. Vital signs noted. Nontoxic-appearing. HEENT examination shows TM clear on the left, no mastoid tenderness or erythema. No pain with movement of the tragus or auricle. Neck soft and supple without meningismus. No noted swelling of cheek or neck. Inspection of the mouth does show various dental caries especially on the left upper jaw and the second molar which has eroded down to the gumline. There is no gingival abscess. Airway patent. No Travis angina. Inspection of the left lower jaw shows the third molar to be impacted with an open gumline, and carious teeth in the 2nd and 3rd molars in the left lower jaw. Const Vital Signs: 11/12/24 17:15 Temperature 99.2 F H Temperature Source Oral Pulse Rate 123 H Respiratory Rate 18 Blood Pressure 152/104 H Blood Pressure Mean 120 Pulse Ox 98 Oxygen Delivery Method Room Air MDM MDM MDM Narrative Medical decision making narrative: And feel differential diagnosis is applicable. I think her pain is due to dental caries and could be from periapical abscess as well. There is no drainable gingival abscess. She states that she can take regular penicillin so she was written a prescription to take this 3 times a day for the next 10 days. I wrote her prescription for ibuprofen 600 mg and she requested a 150 mg Diflucan tablet as she states she gets yeast infections with the use of antibiotics. She was given a dental referral sheet as well. She is to continue to refrain from smoking. Disposition is discharged home in stable condition. History & Record Review Discussion w/independent historian: Patient Discharge Plan Triage Chief Complaint: Dental ED Provider: Zev Tate Dx/Rx/DC Orders Clinical Impression: Dental decay, Pain, dental, Pain due to dental caries Instructions: ED Dental Pain, ED Dental Cavity Prescriptions: New ibuprofen 600 mg tablet 600 mg PO TID PRN (Reason: pain) Qty: 20 0RF fluconazole 150 mg tablet 150 mg PO DAILY Qty: 1 0RF Rx Instructions: administer on day 1 of therapy penicillin V potassium 500 mg tablet 500 mg PO TID 10 Days Qty: 30 0RF No Action pantoprazole [Protonix] 20 mg tablet,delayed release (DR/EC) 20 mg PO DAILY ferrous sulfate [Feosol] 325 mg (65 mg iron) tablet 325 mg PO DAILY Prenatabs FA 29-1 mg tablet 1 tab PO DAILY hydrocodone-acetaminophen 5-325 mg tablet 1 tab PO Q6H PRN PRN (Reason: Pain) 3 Days Qty: 10 0RF Primary Care Provider: Care Physician,No Primary Referrals: Care Physician,No Primary [Primary Care Provider] - Activity Restrictions/Additional Instructions: Follow-up with a dentist as soon as possible. Antibiotics as directed. Print Language: Egyptian Disposition Disposition: Home, Self Care
[2024-11-12 18:18] VITALS: BP 138/89; PULSE 123; RESP 18; TEMP 37.3; O2SAT 98
--- NOTE | 2024-11-12 18:43 | CM.ED ---
Social Work Reason for visit: Dental resource SW entered room, introduced self to patient and explained reason for visit. Patient receptive to dental resource and thanked SW for the information. No further needs identified at this time. Tamika Charles, DIRECTOR OF EXHIBIT DEVELOPMENT, [employer]
== END 2024-11-12 18:25 | disposition home or self-care (01) ==
LOC: ED 17:45
PROVIDERS: Emergency Provider Emergency Medicine; Visit Provider Emergency Medicine
DX: K02.9 Dental caries, unspecified (principal); F17.210 Nicotine dependence, cigarettes, uncomplicated; R68.84 Jaw pain; K08.89 Other specified disorders of teeth and supporting structures
CPT/HCPCS: 99282